=== PATIENT | female | born 1995 | race Caucasian/White ===

== ENCOUNTER 2024-10-03 05:30 | Inpatient (IN) | payer MEDICAID, SELFPAY ==
--- NOTE | 2024-09-29 11:02 | ESHP_ITS ---
RE: JOHNNY CRUZ : 1995 DATE OF ADMISSION: 10/03/2024 HISTORY OF PRESENT ILLNESS: This is a 29-year-old 3, para 1-0-1-1, with a due date of 10/06/2024, with intrauterine at 39 weeks and 0 days, who presents to Labor and Delivery for delivery. The patient had a previous shoulder dystocia, and she elects to undergo delivery. She reports occasional contractions. She denies any leaking or bleeding. She reports normal movement. Her care was complicated by an ultrasound, which showed an umbilical vein varix measuring 1.2 cm discovered upon maternal- medicine ultrasound. Her serial ultrasounds have shown adequate interval growth as well as her twice- weekly antepartum testing in the form of NSTs have been reassuring. The patient has been taking iron during her for iron deficiency anemia. Her urine drug screen was positive for methamphetamine in 06/2024 at her first visit, but her subsequent urine drug screens throughout the have been negative. ALLERGIES: NO KNOWN DRUG ALLERGIES. MEDICATIONS: 1. multivitamin one p.o. daily. 2. Ferrous sulfate 325 mg one p.o. twice a day. SOCIAL HISTORY: Denies any recent alcohol or drug use or smoking. However, methamphetamine was found in her urine on her first visit, but not on the subsequent visit. FAMILY HISTORY: Denies. OBSTETRIC HISTORY: 40 weeks, normal vaginal delivery of an 8-pound, 9-ounce female complicated by shoulder dystocia, spontaneous at 9 weeks' gestation in 08/2023. REVIEW OF SYSTEMS: She denies any chest pain, palpitations, cough, fever, shortness of breath, or lower extremity pain. PHYSICAL EXAMINATION: VITAL SIGNS: Blood pressure 119/73, heart rate 88, respirations 18, temperature 98.2, weight 190 pounds. HEENT: Oropharynx and sclerae are clear. LUNGS: Clear to auscultation bilaterally. HEART: Regular rate and rhythm. ABDOMEN: Gravid term size . PELVIC: Exam deferred. EXTREMITIES: Nontender. SKIN: No gross rashes or lesions. NEUROLOGIC: No focal deficit. ASSESSMENT: Intrauterine at 39 weeks, previous shoulder dystocia, elective delivery. PLAN: delivery. Informed consent was obtained. The patient has been aware of the risks, complications, alternatives, and benefits of the proposed procedure and she agrees. DT: 08:51:19 TT: 10:30:00 Ref: [id number] - TID: [id number] MTDD
[2024-10-02 10:00] LABS: Basophils % (Auto) 0 % (0-2.5); Eosinophils # (Auto) 0.2 Thou/mm3 (0.0-0.5); Eosinophils % (Auto) 1 % (0-10); Hematocrit 35.4 % (36.0-46.0); Hemoglobin 11.8 g/dL (12.0-16.0); Immature Granulocytes % (Auto) 1 % (0-0); Immature Granulocytes Auto 0.14 Thou/mm3 (0.00-0.00); Lymphocytes # (Auto) 1.5 Thou/mm3 (1.0-4.8); Lymphocytes % (Auto) 11 % (10-50); Mean Corpuscular HGB Conc 33.3 g/dl (31.0-37.0); Mean Corpuscular Hemoglobin 29.7 pg (25.0-35.0); Mean Corpuscular Volume 89 fL (80-100); Monocytes # (Auto) 0.8 Thou/mm3 (0.0-0.8); Monocytes % (Auto) 6 % (0-12); Neutrophils # (Auto) 11.2 Thou/mm3 (1.8-7.7); Neutrophils % (Auto) 81 % (37-80); Nucleated Red Blood Cell % 0 /100 WBC (0); Platelet Count 315 Thou/mm3 (140-440); RDW Standard Deviation 45.9 fL (36.4-46.3); Red Blood Count 3.97 Miln/mm3 (4.00-5.20); White Blood Count 13.9 Thou/mm3 (3.6-11.0)
[2024-10-02 10:19] LABS: Alanine Aminotransferase 14 U/L (10-49); Albumin, Serum 3.9 gm/dL (3.5-5.0); Albumin/Globulin Ratio 1.7 (1.2-2.2); Anion Gap 11 (7-16); Aspartate Amino Transferase < 8 U/L (0-34); BUN/Creatinine Ratio 10 Ratio (12-20); Bilirubin,Total 0.4 mg/dL (0.3-1.2); Blood Urea Nitrogen 6 mg/dL (9-23); Calcium 8.9 mg/dL (8.3-10.6); Carbon Dioxide 23.5 mMol/L (20.0-31.0); Chloride 104 mMol/L (98-107); Creatinine (Component) 0.6 mg/dL (0.6-1.3); Globulin 2.3 gm/dL (2.3-3.5); Glucose 102 mg/dL (74-106); Osmolality,Calculated 273 (275-295); Potassium 4.3 mMol/L (3.4-5.1); Sodium 138 mMol/L (136-145); Total Protein 6.2 gm/dL (5.7-8.2); eGFR > 60 See Note
[2024-10-02 10:30] LABS: Syphilis Nonreactive (Nonreactive)
[2024-10-02 10:36] LABS: INR 0.9 (0.9-1.3); Partial Thromboplastin Time 26.4 Seconds (22.0-36.0)
[2024-10-02 10:38] LABS: Alkaline Phosphatase 117 U/L (46-116)
[2024-10-03] VITALS (30 sets, daily range): BP systolic 106–139; BP diastolic 60–89; PULSE 81–115; RESP 13–23; TEMP 36.6–37; O2SAT 93–100; BMI 30.4
[2024-10-03 06:47] LABS: Basophils % (Auto) 0 % (0-2.5); Eosinophils # (Auto) 0.2 Thou/mm3 (0.0-0.5); Eosinophils % (Auto) 2 % (0-10); Hematocrit 36.1 % (36.0-46.0); Hemoglobin 12.3 g/dL (12.0-16.0); Immature Granulocytes % (Auto) 1 % (0-0); Immature Granulocytes Auto 0.09 Thou/mm3 (0.00-0.00); Lymphocytes # (Auto) 2.2 Thou/mm3 (1.0-4.8); Lymphocytes % (Auto) 18 % (10-50); Mean Corpuscular HGB Conc 34.1 g/dl (31.0-37.0); Mean Corpuscular Hemoglobin 29.8 pg (25.0-35.0); Mean Corpuscular Volume 87 fL (80-100); Monocytes # (Auto) 0.9 Thou/mm3 (0.0-0.8); Monocytes % (Auto) 7 % (0-12); Neutrophils % (Auto) 73 % (37-80); Nucleated Red Blood Cell % 0 /100 WBC (0); Platelet Count 354 Thou/mm3 (140-440); RDW Standard Deviation 45.6 fL (36.4-46.3); Red Blood Count 4.13 Miln/mm3 (4.00-5.20); White Blood Count 12.3 Thou/mm3 (3.6-11.0)
[2024-10-03] MEDS: CITRIC ACID/SODIUM CITR 15 ML UDC (BICITRA) 30 ML PO (07:14)
[2024-10-03] MEDS: ceFAZolin/D5W 2 GM IV 2 GM/100 ML BAG IV (07:15)
[2024-10-03] MEDS: FAMOTIDINE INJ 10 MG/ML VIAL 2 ML 20 MG IV (07:15)
[2024-10-03 07:21] LABS: Syphilis Nonreactive (Nonreactive)
--- NOTE | 2024-10-03 08:22 | PD.LDDELS ---
Data (Red) Data Hx Section: No : 3 Para: 1 Term: 1 : 0 : 1 Delivery Data (Red) Labor Data ROM Date: 10/03/24 ROM Time: 07:58 Rupture Type: AROM Amniotic Fluid: Clear Delivery Data EDC: 10/07/24 EDC calculated by:: LMP/early US confirmation Labor Onset Stage 1 Date: 10/03/24 Labor Onset Stage 1 Time: 07:59 Labor Onset Stage 2 Date: 10/03/24 Labor Onset Stage 2 Time: 07:59 Delivery Date: 10/03/24 Delivery Time: 07:59 Gestational age (weeks): 39 Gestational age (days): 3 Placenta Delivery Date: 10/03/24 Placenta Delivery Time: 08:00 Delivered by: Ivan Manjarrez Delivery nurse: Landy Delacruz Other staff at delivery: Nurse Other staff at delivery: Nursery Nurse Other staff at delivery: Nessa Mosley Other staff at delivery: Rayna Patino Delivery Method Delivery: Delivery Type: Primary Presentation: Vertex Position: OP Anesthesia Type Primary Anesthesia: Spinal Placenta Placenta Delivery: Manual Placenta Cultures Obtained: No Placenta Sent for Examination: No Cord Sample: Cord Blood Obtained EBL Estimated blood loss (ml): 600 Umbilical Cord Placenta/Cord Complication: Other Nuchal Cord: x1 Tightly Additional Procedures umbilical cord varix 1.3 cm. Complications Complications: uterine atony Data (Red) Data Gender: Female Weight Grams: 3405 1 Minute Total: 9 5 Minute Total: 9
[2024-10-03] MEDS: SODIUM CHLORIDE 0.9% 1000 ML 1,000 ML 125 ML IV (09:25)
[2024-10-03] MEDS: KETOROLAC INJ 30 MG/ML VIAL IVP ×2 (09:25→19:18)
[2024-10-03 09:30] LABS: Amphetamine/Metham Scrn,Ur OB Negative (Negative); Benzoylecgonine Screen, Ur OB Negative (Negative); Opiate Screen,Urine OB Negative (Negative); THC Screen,Urine OB Negative (Negative)
--- NOTE | 2024-10-03 12:06 | ESOP_ITS ---
RE: JOHNNY CRUZ : 1995 DATE OF OPERATION: 10/03/2024 PREOPERATIVE DIAGNOSES: Intrauterine at 39 weeks, previous shoulder dystocia, elects delivery. POSTOPERATIVE DIAGNOSES: Intrauterine at 39 weeks, previous shoulder dystocia, elects delivery. PROCEDURE PERFORMED: Primary low transverse section via Pfannenstiel skin incision. SURGEON: Ivan Manjarrez DO ACCOUNTS OFFICER: TOOTIE Evans. ANESTHESIA: Spinal ANESTHESIOLOGIST: Orlin Sun CRNA. ESTIMATED BLOOD LOSS: 600 mL. COMPLICATIONS: Uterine atony. FINDINGS: A live female , cephalic presentation, clear amniotic fluid, Apgars 9 and 9, weight 3405 grams, nuchal cord. Uterus, ovaries, and fallopian tubes grossly within normal limits. Placenta removed complete and intact. DESCRIPTION OF PROCEDURE: After proper informed consent was obtained and the patient was made aware of the risks, complications, alternatives, and benefits of the proposed procedure, she was taken to the operating room where she underwent induction of spinal anesthesia. She was placed in the dorsal supine position with leftward tilt. She was prepped and draped in the usual sterile fashion. A timeout was performed. A Pfannenstiel skin incision was made with the scalpel, carried through to the underlying layer of fascia with the Bovie. The fascia was nicked in the midline. Incision extended bilaterally with the Bovie. The inferior aspect of the fascial incision was grasped with Govind clamps and elevated. The underlying rectus muscles were dissected off with the Bovie. The rectus muscles were in the midline. The peritoneum was identified between two Higginbotham clamps and entered sharply with the Metzenbaum scissors. The incision was extended superiorly and inferiorly with good visualization of the bladder. Bladder blade was then inserted. The vesicouterine peritoneum was incised transversely and bladder flap created digitally. Bladder blades were reinserted. The lower uterine segment was incised in the transverse fashion with a scalpel. The incision was extended bilaterally digitally. The 's head delivered. Mouth and nose suctioned with bulb suction. Nuchal cord reduced. Shoulder and body delivered atraumatically. The cord was clamped and cut. The infant handed off to the waiting pediatric staff. Cord blood and gases were sent. The placenta was then removed manually. The uterus was exteriorized and cleared of all clots and debris. The uterine incision was closed with #1-0 chromic catgut suture in a running locking fashion. A second layer of the same suture was used to imbricate the first layer and obtained excellent hemostasis. The uterus was atonic, but responded to Methergine and TXA. The vesicouterine peritoneum was closed with 2-0 chromic catgut suture in a running fashion. The uterus was firm and the uterus was returned to the abdomen. The gutters were cleared of all clots and debris. The peritoneum was closed with 0 chromic catgut suture in a running fashion. The muscle was closed with 0 chromic catgut suture in a running fashion. The fascia was closed with 0 Vicryl beginning at each angle and ending in the center in running fashion. The subcutaneous tissue was irrigated with normal saline solution, found to be hemostatic, closed with 2-0 chromic catgut suture in a running fashion. The skin was closed with 4-0 Monocryl. A Dermabond Prineo dressing was applied. A sterile pressure dressing was applied. She tolerated the procedure well. Counts were correct. I discussed with the patient the nature of her condition, the intraoperative findings, expectations for recovery. All questions answered. DT: 08:24:33 TT: 11:21:00 Ref: [id number] - TID: [id number]
[2024-10-03 13:18] LABS: Basophils # (Auto) 0.1 Thou/mm3 (0.0-0.2); Basophils % (Auto) 0 % (0-2.5); Eosinophils # (Auto) 0.1 Thou/mm3 (0.0-0.5); Eosinophils % (Auto) 0 % (0-10); Hematocrit 39.2 % (36.0-46.0); Hemoglobin 13.4 g/dL (12.0-16.0); Immature Granulocytes % (Auto) 1 % (0-0); Immature Granulocytes Auto 0.19 Thou/mm3 (0.00-0.00); Lymphocytes % (Auto) 4 % (10-50); Mean Corpuscular HGB Conc 34.2 g/dl (31.0-37.0); Mean Corpuscular Volume 88 fL (80-100); Monocytes # (Auto) 0.3 Thou/mm3 (0.0-0.8); Monocytes % (Auto) 1 % (0-12); Neutrophils % (Auto) 94 % (37-80); Nucleated Red Blood Cell % 0 /100 WBC (0); Platelet Count 317 Thou/mm3 (140-440); RDW Standard Deviation 44.3 fL (36.4-46.3); Red Blood Count 4.47 Miln/mm3 (4.00-5.20); White Blood Count 28.6 Thou/mm3 (3.6-11.0)
[2024-10-03] MEDS: ACETAMINOPHEN IVPB 1,000 MG/100 ML VIAL 250 MG IV (14:17)
[2024-10-03] MEDS: OXYTOCIN in NS 20 units 20 UNIT/1,000 ML BAG 125 UNIT IV (17:36)
[2024-10-04] MEDS: KETOROLAC INJ 30 MG/ML VIAL IVP (03:43)
[2024-10-04 03:50] VITALS: BP 116/76; PULSE 81; RESP 16; TEMP 36.8; O2SAT 95
[2024-10-04 05:21] LABS: Basophils # (Auto) 0.1 Thou/mm3 (0.0-0.2); Basophils % (Auto) 0 % (0-2.5); Eosinophils # (Auto) 0.1 Thou/mm3 (0.0-0.5); Eosinophils % (Auto) 1 % (0-10); Hematocrit 35.2 % (36.0-46.0); Hemoglobin 11.8 g/dL (12.0-16.0); Immature Granulocytes % (Auto) 1 % (0-0); Immature Granulocytes Auto 0.18 Thou/mm3 (0.00-0.00); Lymphocytes # (Auto) 2.5 Thou/mm3 (1.0-4.8); Lymphocytes % (Auto) 14 % (10-50); Mean Corpuscular HGB Conc 33.5 g/dl (31.0-37.0); Mean Corpuscular Hemoglobin 29.6 pg (25.0-35.0); Mean Corpuscular Volume 88 fL (80-100); Monocytes # (Auto) 1.5 Thou/mm3 (0.0-0.8); Monocytes % (Auto) 8 % (0-12); Neutrophils # (Auto) 13.9 Thou/mm3 (1.8-7.7); Neutrophils % (Auto) 76 % (37-80); Nucleated Red Blood Cell % 0 /100 WBC (0); Platelet Count 375 Thou/mm3 (140-440); RDW Standard Deviation 45.7 fL (36.4-46.3); Red Blood Count 3.99 Miln/mm3 (4.00-5.20); White Blood Count 18.2 Thou/mm3 (3.6-11.0)
[2024-10-04 08:00] VITALS: BP 107/75; PULSE 96; RESP 17; TEMP 37
[2024-10-04] MEDS: IBUPROFEN TAB 400 MG TABLET 800 MG PO (09:43)
[2024-10-04 12:15] VITALS: BP 123/68; PULSE 99; RESP 16; TEMP 36.9
[2024-10-04] MEDS: HYDROcodone/APAP 5/325 TABLET 1 TAB PO ×2 (12:16→21:45)
--- NOTE | 2024-10-04 13:44 | PC.SS ---
SS conducted bedside contact with the patient to address nursing referral indicating patient was positive for meth during care. Current tox was negative. tox report was negative.? SS discussed self and role. SS asked patient for permission to speak in front of her guest. Patient asked her crew foreman to leave room. SS discussed with patient the basis of the referral. Patient confirmed she used Adderall during care. Patient resides at home with her 4 year old daughter, Mynor.? This is patient?s 2nd child. Patient had baby girl, Ashley, born 10[birth year]03[birth year]24, via . Patient plans on breast feeding. Patient received OB care by Dr. Manjarrez. Patient states she was consistent with care. Patient denies any history of alcohol. Patient denies any history of CWS or any domestic violence.? Father of the baby is Charles Crowell.? FOB is involved but does not reside with patient. Patient possesses support system from FOB and his family as well as patient?s cousin. Patient has access to a car seat, baby clothing and supplies. FOB will provide transportation upon discharge. Patient is aligned with [facility]. Patient does not possess FS or TANF. client services analyst provided resources to include:? [employer], Warm Line and community numbers.? No further intervention needed at this time.? Concrete Inspector will be available to address any further concerns. ?SS updated bedside nurse.
[2024-10-04] MEDS: HYDROcodone/APAP 5/325 TABLET 2 TAB PO (17:40)
--- NOTE | 2024-10-04 19:16 | ESPR_ITS ---
RE: JOHNNY CRUZ : 1995 DATE OF SERVICE: 10/04/2024 SUBJECTIVE : Postop day #1. The patient denies any problem or complaints. She is voiding. She is ambulating. She is tolerating regular diet. She is passing flatus. She denies any excessive vaginal bleeding. She denies any dizziness or lightheadedness. She denies any chest pain, palpitations, shortness of breath or lower extremity pain. She denies any depression or anxiety. OBJECTIVE: Vital Signs: Blood pressure 123/68, heart rate 99, respirations 16, temperature is 98.5. Lungs: Clear to auscultation bilaterally. Heart: Regular rate and rhythm. Abdomen: Incision clean and intact. Fundus is firm. LABORATORY DATA: Hemoglobin predelivery is 12.3. Post delivery is 11.8. ASSESSMENT: 1. Postop day #1, status post delivery. 2. Leukocytosis to 28,0000, likely reactionary due to surgery. No evidence of infection. PLAN: Encouraged ambulation, support, possible discharge home tomorrow. Discharge instructions given. DT: 17:07:28 TT: 18:33:00 Ref: [id number] - TID: [id number]
--- NOTE | 2024-10-04 20:36 | PD.LDDS ---
DS: Providers Provider Date of admission: 10/03/24 05:30 Primary care physician: Trino Chen MD Admitting Provider: Ivan Manjarrez MD Attending Provider on Admission: Ivan Manjarrez MD Consults: 10/03/24 08:49 Referral Routine Comment: Attending Provider on DC: Ivan Manjarrez MD Discharging Provider: Ivan Manjarrez MD DS: Diagnosis Problem List Completed Was Problem List Reviewed/Reconciled?: Yes Summary/Hosp Course Peripartum Data Procedures: Procedures Operation Date: 10/03/24 07:45 Actual Procedure Side Surgeon p in OB Ivan Manjarrez MD Time Spent with Patient Time attestation: Total time spent providing and/or coordinating discharge services: Exam Vital Signs Temp Pulse Resp BP Pulse Ox O2 Del Method 98.5 F 99 16 123/68 95 Room Air 10/04/24 12:15 10/04/24 12:15 10/04/24 12:15 10/04/24 12:15 10/04/24 03:50 10/04/24 12:15 Discharge Plan Plan Patient Disposition: HOME (Self Care) Patient condition on transfer: Stable Prescriptions/Referrals Prescriptions/Med Rec: New ibuprofen 600 mg tablet 600 mg PO Q6H PRN (Reason: pain) Qty: 30 0RF Continued hydrocodone-acetaminophen [[place]] 5-325 mg tablet 1 tab PO Q6H MDD 6 PRN (Reason: pain) Qty: 30 0RF PNV cmb#[id number]-ferrous fumarate-FA [] 28 mg iron- 800 mcg tablet 1 tab PO DAILY Patient Comments: TAKE 1 TABLET BY MOUTH EVERY DAY ferrous sulfate 325 mg (65 mg iron) tablet 325 mg PO DAILY Patient Comments: TAKE 1 TABLET BY MOUTH TWICE A DAY Discontinued 400 mcg Tablet,Chewable 400 mcg PO DAILY Referrals: Trino Chen MD [Primary Care Provider] - Patient/Caregiver Discharge Instructions Discharge Activity: activity as tolerated Other Discharge Activity Instructions:: Follow up office 1 week. Education Materials: Understanding Blues, Nutrition While , C Section Dc Print Language: Gabonese Stand Alone Forms: Haylie Award Info., Patient Portal Info Letter Discharge Order Discharge Orders: Discharge (Routine); Ordered 10/05/24 Ordered By: Ivan Manjarrez Planned Discharge Date 10/05/24
[2024-10-04 20:59] VITALS: BP 141/79; PULSE 80; RESP 19; TEMP 37.1
[2024-10-05 00:25] VITALS: BP 126/78; PULSE 101; RESP 17; TEMP 37.1
[2024-10-05 04:33] VITALS: BP 131/84; PULSE 89; RESP 17; TEMP 37.2
[2024-10-05] MEDS: HYDROcodone/APAP 5/325 TABLET 1 TAB PO (04:46)
[2024-10-05 07:45] VITALS: BP 128/83; PULSE 92; RESP 16; TEMP 37; O2SAT 96
[2024-10-05] MEDS: IBUPROFEN TAB 400 MG TABLET 800 MG PO (07:48)
--- NOTE | 2024-10-05 09:18 | ESPR_ITS ---
RE: JOHNNY CRUZ : 1995 DATE OF SERVICE: 10/05/2024 S: Postop day #2, the patient denies any problem or complaints. O: Vital Signs: Blood pressure 131/84, heart rate 89, respirations 17, temperature 98.9, and pulse ox is 100% on room air. Lungs: Clear to auscultation bilaterally. Heart: Regular rate and rhythm. Abdomen: Incision clear and intact. Fundus is firm. Extremities: Nontender. A: Postop day #2, status post delivery. P: Discharge home. Discharge instructions given. Followup in the office in 1 week. DT: 07:38:00 TT: 09:17:00 Ref: [id number] - TID: [id number]
== END 2024-10-05 10:00 | disposition home or self-care (01) | DRG 540 ==
LOC: S4SX 06:11 → S4NX 07:44
PROVIDERS: Admitting Provider Specialist; PCP Family Medicine; Visit Provider Specialist
PROC: 10D00Z1 Extraction of Products of Conception, Low, Open Approach (ICD-10-PCS; CPT 59514; principal; 2024-10-03 07:30)
DX: O69.5XX0 Labor and delivery complicated by vascular lesion of cord, not applicable or unspecified (principal); D50.9 Iron deficiency anemia, unspecified; O99.02 Anemia complicating childbirth; Z37.0 Single live birth; Z3A.39 39 weeks gestation of pregnancy; O99.12 Other diseases of the blood and blood-forming organs and certain disorders involving the immune mechanism complicating childbirth; O69.1XX0 Labor and delivery complicated by cord around neck, with compression, not applicable or unspecified; O62.2 Other uterine inertia; D72.829 Elevated white blood cell count, unspecified
CPT/HCPCS: 36415; 80053; 80307; 85025; 85610; 85730; 86780; 86850; 86900; 86901; A4649; J0131; J0689; J1100; J1885; J2210; J2250; J2274; J2371; J2405; J2590; J3010; J3490; J7030; A9270; J2270

== ENCOUNTER 2025-03-27 11:21 | Inpatient (IN) | payer MEDICAID, SELFPAY ==
[2025-03-27] VITALS (8 sets, daily range): BP systolic 124–142; BP diastolic 69–101; PULSE 110–155; RESP 13–100; TEMP 36.1–36.8; O2SAT 94–100; BMI 28.7
--- NOTE | 2025-03-27 11:30 | EDNOTE_ITS ---
ED Alcohol RME/HPI General Chief Complaint: Anxiety Stated Complaint: ANXIETY , ETOH Time Seen by Provider: 03/27/25 11:24 Source: patient and EMS Arrival date/time: 03/27/25 11:21 Limitations: no limitations RME / HPI RME / HPI narrative: 29-year-old female is brought in by EMS for a long history of alcohol abuse. She states she drinks 3-4 times a week, when she does drink, she drinks a bottle of vodka. She states she last drank last night. She is concerned because she has bruising all over her body. She does not recall any injuries. She is feeling anxious. She does have a history of depression and takes sertraline for this. She states she often gets shakes and is diaphoretic. She denies any history of seizures. She has no recent falls or injuries. She has no other acute complaints or concerns. Related Data Home Medications ?Medication ?Instructions ?Recorded ?Confirmed sertraline 100 mg tablet 100 mg PO Q24H 03/27/2503/09 Allergies Allergy/AdvReac Type Severity Reaction Status Date / Time No Known Allergies Allergy Verified 03/27/25 11:46 Review of Systems Review of Systems Systems Reviewed: All systems reviewed, normal except as documented ED Exam General Limitations: Present no limitations General appearance: Present alert and in no apparent distress Head Head exam: Present atraumatic Eye Eye exam: Present normal appearance, PERRL and EOMI ENT ENT exam: Present normal exam, normal oropharynx and mucous membranes moist Neck Neck exam: Present normal inspection, full ROM and trachea midline Chest Chest inspection: Present normal inspection and symmetric chest wall rise Respiratory Respiratory exam: Present normal lung sounds bilaterally Cardiovascular Cardiovascular exam: Present normal rhythm and tachycardia Abdominal Exam Abdominal exam: Present soft; Absent guarding Extremities Exam Extremities exam: Present normal inspection and full ROM Back Exam Back exam: Present normal inspection and full ROM Neurological Exam Neurological exam: Present alert, oriented X3 and other (Patient does have a resting tremor) Psychiatric Psychiatric exam: Present anxious Skin Skin exam: Present intact and other (There is very mild diaphoresis) Course Course Course Narrative: Patient was initially seen by me in the ambulance bay. She is answering questions appropriately but responses are very delayed. She is diaphoretic and tachycardic. I did request a room for the patient with immediate interventions. Patient was later placed in the lobby, her lactic acid came back and was 7.6. Charge nurse was informed. Room and interventions were again requested. Quality Measures none Orders Category Date Time Status Admit to Inpatient Status Routine Admission 03/27/25 14:57 Active Patient Condition Routine Admission 03/27/25 14:57 Ordered COVID-19 Screening Questionnaire NOW Care 03/27/25 13:32 Active Consult Alarm Signaler NOW Care 03/27/25 13:35 Completed Decision to Admit X1 Care 03/27/25 13:32 Completed Flu & Pneumonia Vaccine Screen ONCE Care 03/27/25 14:57 Active Insert IV NOW Care 03/27/25 14:02 Active Miscellaneous Nursing Order NOW Care 03/27/25 15:02 Active Notify provider NEEDED Care 03/27/25 14:57 Active Seizure precautions NEEDED Care 03/27/25 14:59 Active Sequential Compression Device QSHIFT Care 03/27/25 14:57 Active Vital Signs, Non-Routine Q4H Care 03/27/25 15:00 Ordered Vital Signs, Non-Routine Q4H Care 03/27/25 19:00 Ordered Vital Signs, Non-Routine Q4H Care 03/27/25 23:00 Ordered Diet Regular Diet 03/27/25 Dinner Active Alcohol, Blood Medical Stat Lab 03/27/25 11:57 Completed Alcohol, Blood Medical Stat Lab 03/27/25 15:21 Completed CBC AM DRAW Lab 03/28/25 05:00 Ordered CBC AM DRAW Lab 03/29/25 05:00 Ordered CBC AM DRAW Lab 03/30/25 05:00 Ordered CBC AM DRAW Lab 03/31/25 05:00 Ordered CBC AM DRAW Lab 04/01/25 05:00 Ordered CBC AM DRAW Lab 04/02/25 05:00 Ordered CBC AM DRAW Lab 04/03/25 05:00 Ordered CBC AM DRAW Lab 04/04/25 05:00 Ordered CBC AM DRAW Lab 04/05/25 05:00 Ordered CBC AM DRAW Lab 04/06/25 05:00 Ordered CBC Stat Lab 03/27/25 11:57 Completed CMP [Comprehensive Metabolic Panel] Stat Lab 03/27/25 11:57 Completed Comprehensive Metabolic Panel AM DRAW Lab 03/28/25 05:00 Ordered Comprehensive Metabolic Panel AM DRAW Lab 03/29/25 05:00 Ordered Comprehensive Metabolic Panel AM DRAW Lab 03/30/25 05:00 Ordered Comprehensive Metabolic Panel AM DRAW Lab 03/31/25 05:00 Ordered Comprehensive Metabolic Panel AM DRAW Lab 04/01/25 05:00 Ordered Comprehensive Metabolic Panel AM DRAW Lab 04/02/25 05:00 Ordered Comprehensive Metabolic Panel AM DRAW Lab 04/03/25 05:00 Ordered Comprehensive Metabolic Panel AM DRAW Lab 04/04/25 05:00 Ordered Comprehensive Metabolic Panel AM DRAW Lab 04/05/25 05:00 Ordered Comprehensive Metabolic Panel AM DRAW Lab 04/06/25 05:00 Ordered Drug Screen,Urine Stat Lab 03/27/25 13:13 Completed HCG,Qualitative Serum Stat Lab 03/27/25 11:57 Completed Lactic Acid [Lactate (Lactic Acid)] Stat Lab 03/27/25 11:57 Completed Lactic Acid, 3 HR Stat Lab 03/27/25 15:21 Completed Lipase Stat Lab 03/27/25 11:57 Completed Lipid Panel AM DRAW Lab 03/28/25 05:00 Ordered Magnesium AM DRAW Lab 03/28/25 05:00 Ordered Magnesium AM DRAW Lab 03/29/25 05:00 Ordered Magnesium AM DRAW Lab 03/30/25 05:00 Ordered Magnesium AM DRAW Lab 03/31/25 05:00 Ordered Magnesium AM DRAW Lab 04/01/25 05:00 Ordered Magnesium AM DRAW Lab 04/02/25 05:00 Ordered Magnesium AM DRAW Lab 04/03/25 05:00 Ordered Magnesium AM DRAW Lab 04/04/25 05:00 Ordered Magnesium AM DRAW Lab 04/05/25 05:00 Ordered Magnesium AM DRAW Lab 04/06/25 05:00 Ordered Magnesium Stat Lab 03/27/25 11:57 Completed Phosphorous AM DRAW Lab 03/28/25 05:00 Ordered Phosphorous AM DRAW Lab 03/29/25 05:00 Ordered Phosphorous AM DRAW Lab 03/30/25 05:00 Ordered Phosphorous AM DRAW Lab 03/31/25 05:00 Ordered Phosphorous AM DRAW Lab 04/01/25 05:00 Ordered Phosphorous AM DRAW Lab 04/02/25 05:00 Ordered Phosphorous AM DRAW Lab 04/03/25 05:00 Ordered Phosphorous AM DRAW Lab 04/04/25 05:00 Ordered Phosphorous AM DRAW Lab 04/05/25 05:00 Ordered Phosphorous AM DRAW Lab 04/06/25 05:00 Ordered Troponin I Stat Lab 03/27/25 11:57 Completed UA, C/S IF [Urinalysis, C/S if Indicated] Stat Lab 03/27/25 13:11 Completed Urine Culture Stat Lab 03/27/25 13:11 Received Diazepam Inj [Valium Inj] Med 03/27/25 11:29 Discontinued 5 mg IVP X1 ONE Diazepam Inj [Valium Inj] Med 03/27/25 13:49 Discontinued 5 mg IVP X1 ONE Ibuprofen Tab [Motrin Tab] Med 03/27/25 14:57 Discontinued 400 mg PO Q6HR PRN Ibuprofen Tab [Motrin Tab] Med 03/27/25 14:57 Discontinued 600 mg PO Q6H PRN Metoclopramide Inj [Reglan Inj] Med 03/27/25 15:08 Active 10 mg IVP Q6HR PRN Ondansetron Inj [Zofran Inj] Med 03/27/25 14:57 Discontinued 4 mg IVP Q6H PRN Pantoprazole [Protonix] Med 03/28/25 09:00 Discontinued 40 mg PO QDAY Ringers Lactated 1000 ml [Lactated Ringers] 1,000 ml Med 03/27/25 13:30 Discontinued IV 999 mls/hr Ringers Lactated 1000 ml [Lactated Ringers] 1,000 ml Med 03/27/25 13:32 Discontinued IV 999 mls/hr Sodium Chloride 0.9% 1000 ml [Ns] 1,000 ml Med 03/27/25 15:00 Active IV 75 mls/hr Sodium Chloride 0.9% 1000 ml [Ns] 1,000 ml Med 03/27/25 11:40 Discontinued IV 999 mls/hr Code Status Routine Oth 03/27/25 14:57 Ordered Oxygen Delivery DAILY RT 03/27/25 15:00 Active Vital Signs Vital signs: Vital Signs Temperature 98.3 F 03/27/25 11:37 Pulse Rate 114 H 03/27/25 11:37 Respiratory Rate 18 03/27/25 11:37 Blood Pressure 138/85 H 03/27/25 11:37 Pulse Oximetry (%) 100 03/27/25 11:37 Oxygen Delivery Method Room Air 03/27/25 11:37 Discharge Plan Plan Patient Disposition: Admit Acute Care w/in Hospital Problem List Clinical Impression: Alcohol withdrawal Alcohol MDM Narrative MDM Narrative: 29-year-old female is brought in by EMS for a long history of alcohol abuse. She states she drinks 3-4 times a week, when she does drink, she drinks a bottle of vodka. She states she last drank last night. She is concerned because she has bruising all over her body. She does not recall any injuries. She is feeling anxious. She does have a history of depression and takes sertraline for this. She states she often gets shakes and is diaphoretic. She denies any history of seizures. She has no recent falls or injuries. She has no other acute complaints or concerns. Patient is ill-appearing but nontoxic-appearing. She is diaphoretic, tachycardic, mildly confused. Workup in room was requested. I believe that her CIWA score is 11, I have requested nursing staff perform an independent CIWA score. Reviewed patient's labs, she has a lactic acid dosis at 7.6. Patient was placed in the lobby and her room has again been requested for cardiac monitoring and interventions. at 13:34 Case discussed with her hospitalist who will evaluate the patient for admission. At 1350 p.m., patient was brought back to exam room. She is reassessed. Her tremors have worsened. Additional doses of Valium have been requested. Patient data External records reviewed:: EMS form Clinical information provided by:: patient and EMS Social determinants that could affect healthcare access:: alcohol use Patient has the following chronic illnesses:: Alcohol abuse How is presenting disease/condition affected by chronic disease/condition?: exacerbated by Evaluation data The following diagnostics were reviewed and interpreted by me:: EKG tracing(s) (EKG reveals sinus tachycardia [address] change.) Lab and/or radiology exams considered but not ordered:: n/a Interpretation Summary: Alcohol abuse, lactic acidosis, alcohol withdrawal Medications / Prescriptions Medications or Prescriptions considered but not ordered:: n/a Medication administrations:: Medication Administration History Acetaminophen (Acetaminophen 325 Mg Tablet) 650 mg PO Q4HR PRN PRN Reason: Fever >101, pain 1-3 Stop: 04/26/25 16:14 Chlordiazepoxide HCl (Chlordiazepoxide Hcl 25 Mg Capsule) 50 mg PO Q8HR YNOG Stop: 03/28/25 15:44 Last Admin: 03/27/25 16:17 Dose: 50 mg Documented By: DAA Diazepam (Diazepam Inj 5 Mg/Ml Vial 2 Ml) 2.5 mg IVP Q2HR PRN PRN Reason: CIWA SCORE 8-13 Stop: 04/01/25 15:31 Last Admin: 03/27/25 17:43 Dose: 2.5 mg Documented By: ALEXIS(2) Diazepam (Diazepam Inj 5 Mg/Ml Vial 2 Ml) 5 mg IVP Q2HR PRN PRN Reason: CIWA SCORE 14-19 Stop: 04/01/25 15:32 Diazepam (Diazepam Inj 5 Mg/Ml Vial 2 Ml) 10 mg IVP Q2HR PRN PRN Reason: CIWA SCORE 20-25 Stop: 04/01/25 15:32 Folic Acid (Folic Acid Inj 1 Mg/0.2 Ml) 1 mg IVP BID [facility] Stop: 04/26/25 20:59 Sodium Chloride (Ns) 1,000 mls @ 75 mls/hr IV .[id number] [facility] Stop: 04/26/25 14:59 Last Admin: 03/27/25 16:25 Dose: 75 mls/hr Documented By: ALEXIS Lorazepam (Lorazepam 0.5 Mg Tablet) 0.5 mg PO Q4HR PRN PRN Reason: CIWA Score 2-7 Stop: 04/01/25 15:31 Metoclopramide HCl (Metoclopramide Inj 5 Mg/Ml Vial 2 Ml) 10 mg IVP Q6HR PRN; Protocol PRN Reason: NAUSEA OR VOMITING Stop: 04/26/25 15:07 Last Admin: 03/27/25 16:25 Dose: 10 mg Documented By: ALEXIS Multivitamins (Multivitamins Tablet) 1 tab PO QDAY [facility] Stop: 04/26/25 15:44 Last Admin: 03/27/25 16:17 Dose: 1 tab Documented By: ALEXIS Pantoprazole Sodium (Pantoprazole Inj 40 Mg Vial) 40 mg IVP QDAY YONG Stop: 04/27/25 08:59 Sertraline HCl (Sertraline Hcl 25 Mg Tablet) 100 mg PO Q24H YONG Stop: 04/27/25 16:44 Thiamine HCl (Thiamine Inj 100 Mg/Ml Vial 2 Ml) 100 mg IVP BID YONG Stop: 04/26/25 20:59 Discontinued Medications Diazepam (Diazepam Inj 5 Mg/Ml Vial 2 Ml) 5 mg IVP X1 ONE Stop: 03/27/25 11:30 Last Admin: 03/27/25 15:33 Dose: 5 mg Documented By: HOLDEN Diazepam (Diazepam Inj 5 Mg/Ml Vial 2 Ml) 5 mg IVP X1 ONE Stop: 03/27/25 13:50 Last Admin: 03/27/25 14:18 Dose: 5 mg Documented By: HOLDEN Diazepam (Diazepam Inj 5 Mg/Ml Vial 2 Ml) 5 mg IVP Q4HR PRN PRN Reason: CI 14-19 Stop: 04/01/25 15:20 Diazepam (Diazepam Inj 5 Mg/Ml Vial 2 Ml) 2.5 mg IVP Q4HR PRN PRN Reason: CI 8 Stop: 04/01/25 15:24 Diazepam (Diazepam Inj 5 Mg/Ml Vial 2 Ml) 10 mg IVP Q2HR PRN PRN Reason: Stop: 04/01/25 15:59 Diazepam (Diazepam Inj 5 Mg/Ml Vial 2 Ml) 2.5 mg IVP Q2HR YONG Stop: 04/01/25 15:59 Diazepam (Diazepam Inj 5 Mg/Ml Vial 2 Ml) 5 mg IVP Q2HR YONG Stop: 04/01/25 15:59 Diazepam (Diazepam Inj 5 Mg/Ml Vial 2 Ml) 10 mg IVP PRN PRN PRN Reason: Breakthrough agitation Stop: 04/01/25 15:26 Diltiazem HCl (Diltiazem 30 Mg Tablet) 30 mg PO X1 ONE Stop: 03/27/25 18:33 Last Admin: 03/27/25 18:44 Dose: Not Given Documented By: ALEXIS(2) Non-Admin Reason: HOLD PER DR. ALONSO Sodium Chloride (Ns) 1,000 mls @ 999 mls/hr IV .Q1H1M ONE Stop: 03/27/25 12:40 Last Admin: 03/27/25 13:55 Dose: Not Given Documented By: HOLDEN Non-Admin Reason: Cancelled by Provider Lactated Ringer's (Lactated Ringers) 1,000 mls @ 999 mls/hr IV .Q1H1M ONE Stop: 03/27/25 14:30 Last Infusion: 03/27/25 15:40 Dose: Infused Documented By: Admin: 03/27/25 14:20 Dose: 999 mls/hr Documented By: HOLDEN Lactated Ringer's (Lactated Ringers) 1,000 mls @ 999 mls/hr IV .Q1H1M ONE Stop: 03/27/25 14:32 Last Infusion: 03/27/25 15:40 Dose: Infused Documented By: Admin: 03/27/25 14:20 Dose: 999 mls/hr Documented By: HOLDEN Ibuprofen (Ibuprofen Tab 400 Mg Tablet) 400 mg PO Q6HR PRN PRN Reason: Fever > 101 Stop: 04/26/25 14:56 Ibuprofen (Ibuprofen Tab 600 Mg Tablet) 600 mg PO Q6H PRN PRN Reason: PAIN SCALE 1-3 (mild Stop: 04/26/25 14:56 Lorazepam (Lorazepam 0.5 Mg Tablet) 0.5 mg PO Q4HR PRN PRN Reason: CIWA Score 2-6 Stop: 04/01/25 15:21 Lorazepam (Lorazepam 0.5 Mg Tablet) 1 mg PO Q4HR PRN PRN Reason: CIWA SCORE 7-11 Stop: 04/01/25 15:21 Lorazepam (Lorazepam 0.5 Mg Tablet) 2 mg PO Q4HR PRN PRN Reason: CIWA SCORE 12-15 Stop: 04/01/25 15:21 Lorazepam (Lorazepam 0.5 Mg Tablet) 0.5 mg PO Q4HR PRN PRN Reason: CIWA Score 2-7 Stop: 04/01/25 15:21 Non-Formulary Medication (Sertraline) 100 mg PO Q24H YONG Stop: 04/26/25 16:44 Ondansetron HCl (Ondansetron Inj 2 Mg/Ml Inj 2 Ml) 4 mg IVP Q6H PRN; Protocol PRN Reason: NAUSEA OR VOMITING Stop: 04/26/25 14:56 Pantoprazole Sodium (Pantoprazole 40 Mg Tablet) 40 mg PO QDAY YONG Stop: 04/27/25 08:59 Pantoprazole Sodium (Pantoprazole Inj 40 Mg Vial) 40 mg IVP X1 ONE Stop: 03/27/25 15:10 Last Admin: 03/27/25 16:24 Dose: 40 mg Documented By: ALEXIS See above Consultations Consultation(s) initiated? (list below): No Diagnosis Most likely diagnosis given after review of the tests above:: Alcohol abuse, alcohol withdrawal Admission Indicated Admission indicated?: indicated Admission Request Was there a request for admission?: Yes Admission Attestation Admission request attestation: Discussed case with [] from Hospitalist service regarding admission. Discussed patients ED course, exam findings, labs, and radiology results. The Hospitalist [agrees,declines] to accept the patient for admission. Disposition Plan Disposition Plan: Admit
[2025-03-27 12:10] LABS: Basophils # (Auto) 0.1 Thou/mm3 (0.0-0.2); Basophils % (Auto) 1 % (0-2.5); Eosinophils # (Auto) 0.0 Thou/mm3 (0.0-0.5); Eosinophils % (Auto) 0 % (0-10); Hematocrit 44.4 % (36.0-46.0); Hemoglobin 14.7 g/dL (12.0-16.0); Immature Granulocytes Auto 0.06 Thou/mm3 (0.00-0.00); Lymphocytes # (Auto) 0.5 Thou/mm3 (1.0-4.8); Lymphocytes % (Auto) 4 % (10-50); Mean Corpuscular HGB Conc 33.1 g/dl (31.0-37.0); Mean Corpuscular Hemoglobin 32.2 pg (25.0-35.0); Mean Corpuscular Volume 97 fL (80-100); Monocytes # (Auto) 0.6 Thou/mm3 (0.0-0.8); Monocytes % (Auto) 5 % (0-12); Neutrophils # (Auto) 11.0 Thou/mm3 (1.8-7.7); Neutrophils % (Auto) 90 % (37-80); Nucleated Red Blood Cell # 0.00 Thou/mm3 (0.00-0.00); Nucleated Red Blood Cell % 0 /100 WBC (0); Platelet Count 184 Thou/mm3 (140-440); RDW Standard Deviation 44.1 fL (36.4-46.3); Red Blood Count 4.56 Miln/mm3 (4.00-5.20); White Blood Count 12.2 Thou/mm3 (3.6-11.0)
[2025-03-27 12:15] LABS: Lactate (Lactic Acid) 7.6 mMol/L (0.4-2.0)
[2025-03-27 12:22] LABS: HCG,Qualitative Serum Negative
[2025-03-27 12:34] LABS: Alanine Aminotransferase 77 U/L (10-49); Albumin, Serum 4.8 gm/dL (3.5-5.0); Albumin/Globulin Ratio 1.9 (1.2-2.2); Alcohol, Blood Medical < 3.0 mg/dL (0-10.0); Alkaline Phosphatase 91 U/L (46-116); Anion Gap 21 (7-16); Aspartate Amino Transferase 152 U/L (0-34); BUN/Creatinine Ratio 8 Ratio (12-20); Bilirubin,Total 1.4 mg/dL (0.3-1.2); Blood Urea Nitrogen 6 mg/dL (9-23); Calcium 10.4 mg/dL (8.3-10.6); Calcium (Corrected) 10.4 mg/dL (8.5-10.1); Carbon Dioxide 18.7 mMol/L (20.0-31.0); Chloride 95 mMol/L (98-107); Creatinine (Component) 0.8 mg/dL (0.6-1.3); Globulin 2.5 gm/dL (2.3-3.5); Glucose 180 mg/dL (74-106); Lipase 53 U/L (12-53); Magnesium 1.7 mg/dL (1.6-2.6); Osmolality,Calculated 272 (275-295); Potassium 4.8 mMol/L (3.4-5.1); Sodium 135 mMol/L (136-145); Total Protein 7.3 gm/dL (5.7-8.2); eGFR > 60 See Note
[2025-03-27 13:23] LABS: Collection Type, Urine Voided
[2025-03-27 13:46] LABS: Bilirubin,Urine Negative (Negative); Blood,Urine 3+ (Negative); Clarity,Urine Clear (Clear/Hazy); Color,Urine Lt-Yellow (Lt Yel-Yel); Glucose, Urine Negative (Negative); Hyaline Casts,Urine 1 /hpf (0-1); Ketones,Urine 3+ (Negative); Leukocyte Esterase,Urine Negative (Negative); Nitrite,Urine Positive (Negative); PH,Urine 6.0 (5.0-7.0); Protein,Urine 3+ (Neg - Trace); RBC,Urine 3 /hpf (0-3); Specific Gravity,Urine 1.020 (1.001-1.035); Squamous Epithelial Cell,Urine < 1 /hpf (0-5); Urobilinogen,Urine Negative mg/dL (0.0-1.0); WBC,Urine 5 /hpf (0-5)
[2025-03-27 13:47] LABS: Culture Indicated,Urine Yes
[2025-03-27 13:54] LABS: Amphetamine/Methamp Scrn,U Positive (Negative); Barbiturate Screen,Urine Negative (Negative); Benzodiazepines Screen,Urine Negative (Negative); Benzoylecgonine Screen, Ur Negative (Negative); Fentanyl Screen,Urine Negative (Negative); Opiate Screen,Urine Negative (Negative); THC Screen,Urine Negative (Negative)
[2025-03-27] MEDS: DIAZEPAM INJ 5 MG/ML VIAL 2 ML IVP ×2 (14:18→15:33)
[2025-03-27] MEDS: RINGERS LACTATED 1000 ML 1,000 ML 999 ML IV ×2 (14:20)
[2025-03-27 15:00] LABS: Reflex Lactate? Y
--- NOTE | 2025-03-27 15:05 | ESHP_ITS ---
<Statement entered by Janie Roca MD - 03/27/25 18:40> Ms. Dickens is a 29-year-old female with past medical history significant for depression was brought in by ambulance with symptoms of alcohol withdrawal and admitted for further management. On examination, patient presented with a CIWA of 17 due to patient's apparent tremors, nausea, tactile paresthesia, and diaphoresis. Patient's symptoms have improved after being given Valium 5 mg x 2. Patient will continue on CIWA protocol with diazepam, Librium 50 mg every 8 scheduled along with thiamine and folate supplementation. Will encourage p.o. intake when tolerated. Will monitor patient's blood ethanol level and have seizure precautions. Can consider phenobarbital if symptoms continue to worsen, and if that does happen, will will have to stop Librium due to strong adverse reaction when used together. Patient presented with a troponin of 0.049 as well, and will order repeat troponin at 20 1:00, and follow-up with repeat EKG. UA also positive for nitrites and protein, however negative for bacteria. Pending urine culture will continue to monitor for any worsening of symptoms. Will resume patient's home sertraline on home reconciliation is complete. I discussed with and supervised the video intern physician who took care of this patient. I personally saw and examined the patient and discussed the assessment and plan with the entire medicine team, including my attending Dr. Metz, I agree with most of the assessment and plan as documented below Janie Roca M.D. PGY-3 Disclaimer: Despite multiple revisions, due to the dictation software being used, the document bellow may not be free of grammatical errors including phonetic/typographic errors. However, this does not deter from our commitment to providing health care in the patient's best interest in mind. Documentation for date of: 03/27/25 HPI History of Present Illness Chief complaint: Alcohol withdrawal History of present illness: This is a 29 year-old female with past medical history of depression who was BIB EMS for alcohol withdrawal. Patient states that she has been drinking heavily since 5-6 month ago with frequency of almost daily. She typically drinks anywhere between quarter to half a bottle of Vodka. Last drink was this morning at 1000 when she drank half a bottle of Vodka. Patient reports persistent nausea, emesis, tremor, sweating, anxiety, restlessness and presthesia for the 1-2months. Patient denies any visual or auditory hallucinations. Patient also reports severe occipital headache and some vision changes that she has noticed recently. Patient reports shortness of breath, chest discomfort and resolved diarrhea. Patient denies any hematemesis, hematuria, dysuria or hematuria. ED course: received 2L of LR, 1L of NS, and 2x 5mg Diazepam Allergies: NKDA PMH: depression. Denies hx of seizure Meds: Sertraline PSH: x1 SH: Denies tobacco or drug use, +amphetamine pills Review of Systems Review of Systems Systems Reviewed: All systems reviewed, normal except as documented Exam Vital Signs Temp Pulse Resp BP Pulse Ox O2 Del Method 98.3 F 113 H 20 128/101 H 99 Room Air 03/27/25 11:37 03/27/25 14:11 03/27/25 14:11 03/27/25 14:11 03/27/25 14:11 03/27/25 14:11 Narrative Exam General: Anxious appearing, WDWN, diaphoretic, slow to response Head: NCAT Neck: trachea midline, no thyromegaly Resp: CTAB, no wheezing, in no respiratory distress CV: Tachycardia with regular rhythm, No gallops or murmurs appreciated. +2 radial pulses b/l Ext: no pretibial edema noted, no gross deformity Skin: scattered ecchymosis noted on bilateral upper and lower extremity Neuro: CN 2-12 grossly intact, finger to nose intact bilaterally however with tremor. Tremor at rest noted which exacerbates with arms extended. Psych: A/Ox4, anxious Results: Labs 03/28/25 01:55 03/28/25 01:55 Labs: Short CBC 03/27/25 Range/Units 11:57 WBC 12.2 H (3.6-11.0) Thou/mm3 Hgb 14.7 (12.0-16.0) g/dL Hct 44.4 (36.0-46.0) % Plt Count 184 (140-440) Thou/mm3 BMP 03/27/25 11:57 Sodium 135 L Potassium 4.8 Chloride 95 L Carbon Dioxide 18.7 L BUN 6 L Creatinine 0.8 Glucose 180 H Calcium 10.4 Liver Function 03/27/25 Range/Units 11:57 Total Bilirubin 1.4 H (0.3-1.2) mg/dL AST 152 H (0-34) U/L ALT 77 H (10-49) U/L Alkaline Phosphatase 91 (46-116) U/L Albumin 4.8 (3.5-5.0) gm/dL Urine 03/27/25 Range/Units 13:11 Urine Color Lt-Yellow (Lt Yel-Yel) Urine Clarity Clear (Clear/Hazy) Urine pH 6.0 (5.0-7.0) Ur Specific [place] 1.020 (1.001-1.035) Urine Protein 3+ A (Neg - Trace) Urine Glucose (UA) Negative (Negative) Quality Measures Quality Measures VTE prophylaxis Medications Home Medications and Allergies Home Medications ?Medication ?Instructions ?Recorded ?Confirmed ?Type sertraline 100 mg tablet 100 mg PO Q24H 03/27/2503/09 History Allergies Allergy/AdvReac Type Severity Reaction Status Date / Time No Known Allergies Allergy Verified 03/27/25 11:46 Visit Medications Sodium Chloride (Ns) 1,000 mls @ 75 mls/hr IV .[id number] [facility] Stop: 04/26/25 14:59 Ibuprofen (Ibuprofen Tab 400 Mg Tablet) 400 mg PO Q6HR PRN PRN Reason: Fever > 101 Stop: 04/26/25 14:56 Ibuprofen (Ibuprofen Tab 600 Mg Tablet) 600 mg PO Q6H PRN PRN Reason: PAIN SCALE 1-3 (mild Stop: 04/26/25 14:56 Ondansetron HCl (Ondansetron Inj 2 Mg/Ml Inj 2 Ml) 4 mg IVP Q6H PRN; Protocol PRN Reason: NAUSEA OR VOMITING Stop: 04/26/25 14:56 Pantoprazole Sodium (Pantoprazole 40 Mg Tablet) 40 mg PO QDAY [facility] Stop: 04/27/25 08:59 Discontinued Medications Diazepam (Diazepam Inj 5 Mg/Ml Vial 2 Ml) 5 mg IVP X1 ONE Stop: 03/27/25 11:30 Diazepam (Diazepam Inj 5 Mg/Ml Vial 2 Ml) 5 mg IVP X1 ONE Stop: 03/27/25 13:50 Last Admin: 03/27/25 14:18 Dose: 5 mg Sodium Chloride (Ns) 1,000 mls @ 999 mls/hr IV .Q1H1M ONE Stop: 03/27/25 12:40 Last Admin: 03/27/25 13:55 Dose: Not Given Lactated Ringer's (Lactated Ringers) 1,000 mls @ 999 mls/hr IV .Q1H1M ONE Stop: 03/27/25 14:30 Last Admin: 03/27/25 14:20 Dose: 999 mls/hr Lactated Ringer's (Lactated Ringers) 1,000 mls @ 999 mls/hr IV .Q1H1M ONE Stop: 03/27/25 14:32 Last Admin: 03/27/25 14:20 Dose: 999 mls/hr Assessment & Plan Plan 29F with PMH of depression BIB EMS for alcohol withdrawal. Patient has been drinking heavily since 5-6 month ago. Frequency: almost daily (1/4-1/2 bottle of Vodka). Last drink this morning at 1000 (1/2 bottle of Vodka). Patient reports persistent nausea, emesis, tremor, sweating, anxiety, restlessness and presthesia x 1-2months. Denies AH/VH. Reports severe occipital headache and some vision changes, SOB and chest discomf. Denies any hematemesis, hematuria, dysuria or hematuria. ED course: Received 2L of LR, 1L of NS, and 2x 5mg Diazepam #Alcohol withdrawal #Alcohol use disorder #Lactate acidosis with anion gap Typically drinks 1/2-1/4 bottle of vodka almost daily x5-6 months. Last drink a few hours prior to admission (1/2 bottle of Vodka) Diaphoretic and tachycardia of 113 on admission. lactate of 7.6 (Improved to 2.0) with anion gap of 21 UDS +amphetamines CIWA of 17 (tremor, N/V, tactile paresthesia, diaphoresis, anxiety, agitation, headache) after given x2 Diazepam 5mg Plan: - CIWA protocol with diazepam - Librium 50 PO q8 scheduled - Thiamine IV 100 BID - Folate 1mg BID - Multivitamins PO qday if tolerates PO - Seizure precautions - Ordered blood ethanol level - IVF maintenance at 75 - Will consider Phenobarbital if withdrawal continues or worsens #Chest pain Patient reports chest discomfort and shortness of breath. Saturating at 99% on RA with unremarkable physical exam. Most likely due to anxiety and alcohol withdrawal. Initial trop: 0.049 Plan: -Ordered EKG -Repeat trop at 2100 #Cystitis Patient denies any dysuria or hematuria. UA positive for Nitrites, blood, ketones and proteins. Negative for bacteria and Leukocyte esterase. Suprapubic tenderness noted one exam. Plan: - Pending urine culture - CTM #Alcohol hepatitis Chronic, per patient. AST 152, ALT 77 Plan: - CTM # Depression Managed with sertraline Plan: -Will continue home sertraline once med rec is complete Health Maintenance: Disposition: Admit to Tele Feeding: Regular diet Thromboprophylaxis: SCDs GI prophylaxis: Protonix Code Status: Full code Plan discussed with senior residen Dr. Roca and attending physician Dr. Isaías Joseph DO PGY-1 Attending Provider Attestation/Addendum Patricia Nolan DO, attest that I was physically present for the ferrera portions of the service and evaluated the patient with the resident and I reviewed and discussed the case with the resident and agree with the resident's findings and plans of care as documented above Patient is a 29 year old female with Pmhx of depression on sertraline who was brought to the ED due to acute alcohol withdrawal. Patient states that her last drink was vodka this morning at 10am. Patient states that she has tried to stop drinking, but goes into withdrawals and subsequently drinks more alcohol. She drinks about a quarter to half a bottle of vodka daily. Patient denies any history of seizures otherwise. Patient is very tremulous on exam and is somewhat agitated, very anxious. She reports some pain in her lower abdomen. She endorses nausea, but no vomiting. She denies any tactile, auditory or visual hallucinations. CIWA score about 18 currently. Will admit to telemetry for further workup and medical management of acute alcohol withdrawal. Troponin was detectable, but negative. EKG shows no ST or T wave changes. She is tachycardic. Will f/u with repeat troponins.
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
[2025-03-27 15:41] LABS: Lactic Acid, 3 HR 2.0 mMol/L (0.4-2.0)
[2025-03-27 16:00] LABS: Alcohol, Blood Medical < 10.0 mg/dL (0-10.0)
[2025-03-27 16:02] LABS: Troponin I 0.049 ng/mL (0.0-0.045)
--- NOTE | 2025-03-27 16:15 | EKG_ITS ---
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
[2025-03-27] MEDS: MULTIVITAMINS TABLET 1 TAB PO (16:17)
[2025-03-27] MEDS: METOCLOPRAMIDE INJ 5 MG/ML VIAL 2 ML 10 MG IVP (16:25)
[2025-03-27] MEDS: SODIUM CHLORIDE 0.9% 1000 ML 1,000 ML 75 ML IV (16:25)
[2025-03-27 16:54] LABS: Anion Gap 17 (7-16); BUN/Creatinine Ratio 8 Ratio (12-20); Blood Urea Nitrogen < 5 mg/dL (9-23); Calcium 9.8 mg/dL (8.3-10.6); Carbon Dioxide 19.9 mMol/L (20.0-31.0); Chloride 98 mMol/L (98-107); Creatinine (Component) 0.6 mg/dL (0.6-1.3); Estimated Creatinine Clearance 146.9 mL/min (>60); Glucose 82 mg/dL (74-106); Osmolality,Calculated 266 (275-295); Potassium 4.6 mMol/L (3.4-5.1); Sodium 135 mMol/L (136-145); eGFR > 60 See Note
[2025-03-27] MEDS: DIAZEPAM INJ 5 MG/ML VIAL 2 ML 2.5 MG IVP (17:43)
--- NOTE | 2025-03-27 19:13 | PC.NURSE ---
called pharmacy to clarify if scheduled 2200 dose can be given due to last administration dose was at 1617 , pharmacy stated ok to give 2200 scheduled dose.
[2025-03-27] MEDS: THIAMINE INJ 100 MG/ML VIAL 2 ML IVP (21:33)
[2025-03-27] MEDS: FOLIC ACID INJ 1 MG/0.2 ML IVP (21:33)
[2025-03-27 22:32] LABS: Troponin I 1.566 ng/mL (0.0-0.045)
[2025-03-28] VITALS (9 sets, daily range): BP systolic 106–134; BP diastolic 73–95; PULSE 97–149; RESP 14–98; TEMP 36.1–36.6; O2SAT 97–99
[2025-03-28 02:13] LABS: Basophils # (Auto) 0.0 Thou/mm3 (0.0-0.2); Basophils % (Auto) 0 % (0-2.5); Eosinophils # (Auto) 0.1 Thou/mm3 (0.0-0.5); Eosinophils % (Auto) 1 % (0-10); Hematocrit 42.3 % (36.0-46.0); Hemoglobin 13.9 g/dL (12.0-16.0); Immature Granulocytes Auto 0.04 Thou/mm3 (0.00-0.00); Lymphocytes # (Auto) 1.1 Thou/mm3 (1.0-4.8); Lymphocytes % (Auto) 11 % (10-50); Mean Corpuscular HGB Conc 32.9 g/dl (31.0-37.0); Mean Corpuscular Hemoglobin 32.0 pg (25.0-35.0); Mean Corpuscular Volume 98 fL (80-100); Monocytes # (Auto) 0.8 Thou/mm3 (0.0-0.8); Monocytes % (Auto) 8 % (0-12); Neutrophils # (Auto) 7.9 Thou/mm3 (1.8-7.7); Neutrophils % (Auto) 79 % (37-80); Nucleated Red Blood Cell # 0.00 Thou/mm3 (0.00-0.00); Nucleated Red Blood Cell % 0 /100 WBC (0); Platelet Count 140 Thou/mm3 (140-440); RDW Standard Deviation 45.6 fL (36.4-46.3); Red Blood Count 4.34 Miln/mm3 (4.00-5.20); White Blood Count 10.0 Thou/mm3 (3.6-11.0)
[2025-03-28 03:07] LABS: Alanine Aminotransferase 53 U/L (10-49); Albumin, Serum 4.1 gm/dL (3.5-5.0); Albumin/Globulin Ratio 1.9 (1.2-2.2); Alkaline Phosphatase 76 U/L (46-116); Anion Gap 11 (7-16); Aspartate Amino Transferase 81 U/L (0-34); BUN/Creatinine Ratio 8 Ratio (12-20); Bilirubin,Total 1.1 mg/dL (0.3-1.2); Blood Urea Nitrogen 6 mg/dL (9-23); Calcium 9.5 mg/dL (8.3-10.6); Calcium (Corrected) 9.5 mg/dL (8.5-10.1); Carbon Dioxide 29.5 mMol/L (20.0-31.0); Cardiac Risk Estimate 1.5 RATIO (3.7-5.6); Chloride 101 mMol/L (98-107); Cholesterol 236 mg/dL (132-200); Creatinine (Component) 0.8 mg/dL (0.6-1.3); Estimated Creatinine Clearance 109.9 mL/min (>60); Globulin 2.2 gm/dL (2.3-3.5); Glucose 89 mg/dL (74-106); HDL Cholesterol 156 mg/dL (40-60); LDL Cholesterol,Calculated 66 mg/dL (0-130); Magnesium 1.8 mg/dL (1.6-2.6); Osmolality,Calculated 277 (275-295); Phosphorous 3.3 mg/dL (2.4-5.1); Potassium 4.1 mMol/L (3.4-5.1); Sodium 141 mMol/L (136-145); Total Protein 6.3 gm/dL (5.7-8.2); Triglycerides 72 mg/dL (30-150); eGFR > 60 See Note
[2025-03-28 03:09] LABS: Troponin I 1.066 ng/mL (0.0-0.045)
[2025-03-28] MEDS: SODIUM CHLORIDE 0.9% 1000 ML 1,000 ML 75 ML IV ×2 (06:24→17:35)
--- NOTE | 2025-03-28 07:36 | EKG_ITS ---
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
--- NOTE | 2025-03-28 08:13 | ESPR_ITS ---
<Statement entered by Noah Nesbitt MD - 03/28/25 17:11> Senior Resident Attestation: I supervised/discussed management plan with commercial intern physician Dr. Joseph, and was involved in the care of this patient. I personally saw and examined the patient and discussed the assessment and plan with the entire medicine team, including my attending. I agree with the assessment and plan as documented. Patient reports no new complaints today. Her CIWA score is 0. Her troponin is downtrending, last reading 0.62. Due to significantly elevated initial troponin cardiology was consulted and echo was ordered. Will continue current management, possible discharge tomorrow. Patient's care was discussed with attending physician, Dr. Metz. Noah Nesbitt MD PGY-3. Documentation for date of: 03/28/25 Subjective Subjective Interval history: 03/28/25: NAEON. VSS except for tachy cardia of 100-120. Patient received CIWA of 0 by RN overnight and did not receive any Diazepams. Patient reports significant imporvement of her symptoms from yesterday. Patient denies any chest pain, dyspnea, nausea, vomiting, headache, dysuria, hematuria, A/V hallucinations, paresthesia or visual changes. Exam Vital Signs Temp Pulse Resp BP Pulse Ox O2 Del Method 96.9 F 97 15 123/93 H 98 Room Air 03/28/25 04:00 03/28/25 04:00 03/28/25 04:00 03/28/25 04:00 03/28/25 04:00 03/28/25 04:00 Narrative Exam General: WDWN, in no acute distress Head: NCAT Neck: trachea midline, no thyromegaly Resp: CTAB, no wheezing, in no respiratory distress CV: Tachycardia with regular rhythm, No gallops or murmurs appreciated. +2 radial pulses b/l Ext: no pretibial edema noted, no gross deformity Skin: scattered ecchymosis noted on bilateral upper and lower extremity Neuro: CN 2-12 grossly intact, finger to nose intact. Very minimal tremor of UE when arms extended Psych: A/Ox4, calm affect Objective Labs 03/29/25 05:43 03/29/25 05:43 Labs: Laboratory Results - last 24 hr 03/27/25 03/27/25 03/27/25 11:57 13:11 13:13 WBC 12.2 H RBC 4.56 Hgb 14.7 Hct 44.4 MCV 97 MCH 32.2 MCHC 33.1 RDW Std Deviation 44.1 Plt Count 184 Neut % (Auto) 90 H Lymph % (Auto) 4 L Nash % (Auto) 5 Eos % (Auto) 0 Baso % (Auto) 1 Neut # (Auto) 11.0 H Lymph # (Auto) 0.5 L Nash # (Auto) 0.6 Eos # (Auto) 0.0 Baso # (Auto) 0.1 Immature Gran # (Auto) 0.06 H Absolute Nucleated RBC 0.00 Immature Gran % 1 H Nucleated RBC % 0 Sodium 135 L Potassium 4.8 Chloride 95 L Carbon Dioxide 18.7 L Anion Gap 21 H BUN 6 L Creatinine 0.8 Estim Creat Clear Calc Not Performed. eGFR > 60 BUN/Creatinine Ratio 8 L Glucose 180 H Calculated Osmolality 272 L Lactic Acid 7.6 H* Calcium 10.4 Corrected Calcium 10.4 H Phosphorus Magnesium 1.7 Total Bilirubin 1.4 H AST 152 H ALT 77 H Alkaline Phosphatase 91 Troponin I 0.049 H* Total Protein 7.3 Albumin 4.8 Globulin 2.5 Albumin/Globulin Ratio 1.9 Triglycerides Cholesterol LDL Cholesterol, Calc HDL Cholesterol Cholesterol/HDL Ratio Lipase 53 HCG, Qual Negative Ur Collection Type Voided Urine Color Lt-Yellow Urine Clarity Clear Urine pH 6.0 Ur Specific [place] 1.020 Urine Protein 3+ A Urine Glucose (UA) Negative Urine Ketones 3+ A Urine Blood 3+ A Urine Nitrite Positive Urine Bilirubin Negative Urine Urobilinogen (Auto) Negative Ur Leukocyte Esterase Negative Urine RBC 3 Urine WBC 5 Ur Squamous Epith Cells < 1 Urine Bacteria None Hyaline Casts 1 Ur Culture Indicated? Yes Urine Opiates Screen Negative Urine Fentanyl Screen Negative Ur Barbiturates Screen Negative U Amphetamin/Meth Scrn Positive A U Benzodiazepines Scrn Negative U Cocaine Metab Screen Negative U Marijuana (THC) Screen Negative Ethyl Alcohol < 3.0 03/27/25 03/27/25 03/28/25 15:21 21:47 01:55 WBC 10.0 RBC 4.34 Hgb 13.9 Hct 42.3 MCV 98 MCH 32.0 MCHC 32.9 RDW Std Deviation 45.6 Plt Count 140 D Neut % (Auto) 79 Lymph % (Auto) 11 Nash % (Auto) 8 Eos % (Auto) 1 Baso % (Auto) 0 Neut # (Auto) 7.9 H Lymph # (Auto) 1.1 Nash # (Auto) 0.8 Eos # (Auto) 0.1 Baso # (Auto) 0.0 Immature Gran # (Auto) 0.04 H Absolute Nucleated RBC 0.00 Immature Gran % 0 Nucleated RBC % 0 Sodium 135 L 141 Potassium 4.6 4.1 D Chloride 98 101 Carbon Dioxide 19.9 L 29.5 Anion Gap 17 H 11 BUN < 5 L 6 L Creatinine 0.6 0.8 Estim Creat Clear Calc 146.9 109.9 eGFR > 60 > 60 BUN/Creatinine Ratio 8 L 8 L Glucose 82 D 89 Calculated Osmolality 266 L 277 Lactic Acid 2.0 Calcium 9.8 9.5 Corrected Calcium 9.5 Phosphorus 3.3 Magnesium 1.8 Total Bilirubin 1.1 AST 81 H ALT 53 H Alkaline Phosphatase 76 Troponin I 1.566 H* D 1.066 H* D Total Protein 6.3 Albumin 4.1 D Globulin 2.2 L Albumin/Globulin Ratio 1.9 Triglycerides 72 Cholesterol 236 H LDL Cholesterol, Calc 66 HDL Cholesterol 156 H Cholesterol/HDL Ratio 1.5 L Lipase HCG, Qual Ur Collection Type Urine Color Urine Clarity Urine pH Ur Specific [place] Urine Protein Urine Glucose (UA) Urine Ketones Urine Blood Urine Nitrite Urine Bilirubin Urine Urobilinogen (Auto) Ur Leukocyte Esterase Urine RBC Urine WBC Ur Squamous Epith Cells Urine Bacteria Hyaline Casts Ur Culture Indicated? Urine Opiates Screen Urine Fentanyl Screen Ur Barbiturates Screen U Amphetamin/Meth Scrn U Benzodiazepines Scrn U Cocaine Metab Screen U Marijuana (THC) Screen Ethyl Alcohol < 10.0 Quality Measures Quality Measures none Assessment & Plan Assessment Current Active Medications: Generic Name Dose Route Start Last Admin Trade Name Freq PRN Reason Stop Dose Admin Acetaminophen 650 mg 03/27/25 16:15 Acetaminophen 325 Mg Tablet PO 04/26/25 16:14 Q4HR PRN Fever >101, pain 1-3 Chlordiazepoxide HCl 50 mg 03/27/25 15:45 03/28/25 05:17 Chlordiazepoxide Hcl 25 Mg Capsule PO 03/28/25 15:44 50 mg Q8HR YONG Administration Diazepam 2.5 mg 03/27/25 15:32 03/27/25 17:43 Diazepam Inj 5 Mg/Ml Vial 2 Ml IVP 04/01/25 15:31 2.5 mg Q2HR PRN Administration CIWA SCORE 8-13 Diazepam 5 mg 03/27/25 15:33 Diazepam Inj 5 Mg/Ml Vial 2 Ml IVP 04/01/25 15:32 Q2HR PRN CIWA SCORE 14-19 Diazepam 10 mg 03/27/25 15:33 Diazepam Inj 5 Mg/Ml Vial 2 Ml IVP 04/01/25 15:32 Q2HR PRN CIWA SCORE 20-25 Folic Acid 1 mg 03/27/25 21:00 03/27/25 21:33 Folic Acid Inj 1 Mg/0.2 Ml IVP 04/26/25 20:59 1 mg BID YONG Administration Sodium Chloride 1,000 mls @ 75 mls/hr 03/27/25 15:00 03/28/25 06:24 Ns IV 04/26/25 14:59 75 mls/hr .[id number] YONG Administration Magnesium Sulfate 2 gm in 50 mls @ 25 mls/hr 03/28/25 07:36 Magnesium Sulfate Ivpb IV 03/28/25 09:35 X1 ONE Lorazepam 0.5 mg 03/27/25 15:32 Lorazepam 0.5 Mg Tablet PO 04/01/25 15:31 Q4HR PRN CIWA Score 2-7 Metoclopramide HCl 10 mg 03/27/25 15:08 03/27/25 16:25 Metoclopramide Inj 5 Mg/Ml Vial 2 Ml IVP 04/26/25 15:07 10 mg Q6HR PRN Administration NAUSEA OR VOMITING Protocol Multivitamins 1 tab 03/27/25 15:45 03/27/25 16:17 Multivitamins Tablet PO 04/26/25 15:44 1 tab QDAY YONG Administration Pantoprazole Sodium 40 mg 03/28/25 09:00 Pantoprazole Inj 40 Mg Vial IVP 04/27/25 08:59 QDAY YONG Sertraline HCl 100 mg 03/28/25 16:45 Sertraline Hcl 25 Mg Tablet PO 04/27/25 16:44 Q24H YONG Thiamine HCl 100 mg 03/27/25 21:00 03/27/25 21:33 Thiamine Inj 100 Mg/Ml Vial 2 Ml IVP 04/26/25 20:59 100 mg BID YONG Administration Plan 29F with PMH of depression BIB EMS for alcohol withdrawal. Patient has been drinking heavily since 5-6 month ago. Frequency: almost daily (1/4-1/2 bottle of Vodka). Last drink this morning at 1000 (1/2 bottle of Vodka). Patient reports persistent nausea, emesis, tremor, sweating, anxiety, restlessness and presthesia x 1-2months. Denies AH/VH. Reports severe occipital headache and some vision changes, SOB and chest discomf. Denies any hematemesis, hematuria, dysuria or hematuria. ED course: Received 2L of LR, 1L of NS, and 2x 5mg Diazepam #Alcohol withdrawal (Improved) #Alcohol use disorder #Lactate acidosis with anion gap (Resolved) Typically drinks 1/2-1/4 bottle of vodka almost daily x5-6 months. Last drink a few hours prior to admission (1/2 bottle of Vodka) 8/20 Diaphoretic and tachycardia of 113 on admission. lactate of 7.6 (Improved to 2.0) with anion gap of 21 which improved to 11. UDS +amphetamines. Patient reports taking phen-phen (Fenfluramine/phentermine) for weight loss. CIWA of 17 (tremor, N/V, tactile paresthesia, diaphoresis, anxiety, agitation, headache) after given x2 Diazepam 5mg on admission. Patient's CIWA is zero today. Symptoms on admission resolved completely except for tachycardia. Plan: - CIWA protocol with diazepam - Decrease Librium to 50 PO BID - Continue Thiamine IV 100 BID - Continue Folate 1mg BID - Multivitamins PO qday if tolerates PO - Seizure precautions - IVF maintenance at 75 - Will consider Phenobarbital if withdrawal worsens #Chest pain (Improved) #NSTEMI Type 2 Patient reports chest discomfort and shortness of breath. Saturating at 99% on RA with unremarkable physical exam. NSTEMI type 2 most likely due to demand ischemia from anxiety with tachycardia and alcohol withdrawal. Of note, UDS +amphetamines. Patient reports taking phen- phen (Fenfluramine/phentermine) for weight loss which may have played a role here as well. Initial trop: 0.049 --> 1.566 -->1.066 --> 0.628 EKG shows sinus tachycardia with QTc of [address] elevation Plan: - Ordered repeat EKG - Cardiology Dr. Tolentino was consulted, appreciate recs - Ordered TTE - Stop reglan given prolonged QTc while being on sertraline #Cystitis Patient denies any dysuria or hematuria. UA positive for Nitrites, blood, ketones and proteins. Negative for bacteria and Leukocyte esterase. Suprapubic tenderness noted on exam. Urine culture positive for gram negative rods Plan: - Start Rocephin 1g qday - Pending urine sensitivity #Alcohol hepatitis (Improved) Chronic, per patient. AST 152, ALT 77 on admission which down-trended to 81 and 53 respectively. Plan: - CTM # Depression Managed with sertraline Plan: -Continue home sertraline once med rec is complete Health Maintenance: Disposition: Admit to Tele Feeding: Regular diet Thromboprophylaxis: SCDs GI prophylaxis: Protonix Code Status: Full code Plan discussed with senior residen Dr. Nesbitt and attending physician Dr. Isaías Joseph DO PGY-1 Attending Provider Attestation/Addendum Patricia Nolan DO, attest that I was physically present for the ferrera portions of the service and evaluated the patient with the resident and I reviewed and discussed the case with the resident and agree with the resident's findings and plans of care as documented above Patient seen and evaluated this AM. CIWA score of 3 as patient remains to ahve mild tremors and is anxious. Patient has been quite tachycardic throughout the day. Troponin downtrending from admission. Likely demand ischemia. Patient denied any chest pain or shortness of breath throughout the onset of her symptoms and hospitalization. She reports feeling improved. Discussed finding of positive amphetamine, patient reports that she was taking phentermine for weight loss. Will consult cardiology regarding NSTEMI. Will taper librium and continue to monitor patient on CIWA protocol.
[2025-03-28] MEDS: Magnesium Sulfate 2 GM Ivpb 2 GM/50 ML BAG IV (08:51)
[2025-03-28] MEDS: FOLIC ACID INJ 1 MG/0.2 ML IVP ×2 (08:51→20:04)
[2025-03-28] MEDS: THIAMINE INJ 100 MG/ML VIAL 2 ML IVP ×2 (08:51→20:04)
[2025-03-28] MEDS: MULTIVITAMINS TABLET 1 TAB PO (08:51)
[2025-03-28 09:08] LABS: Troponin I 0.628 ng/mL (0.0-0.045)
[2025-03-28] MEDS: cefTRIAXone/D5w 1gm IV premix 1 GM/50 ML BAG IV (11:08)
--- NOTE | 2025-03-28 12:00 | PC.NURSE ---
Dr. Nesbitt made aware of patients increased heart rate in the 150's. Per MD the team will come and see her. Patient denies any symptoms. She is sitting up in bed eating lunch.
--- NOTE | 2025-03-28 13:24 | PC.SS ---
SS follow up note; WA protocol, patient will discharge home when medically cleared.
[2025-03-28] MEDS: DIAZEPAM INJ 5 MG/ML VIAL 2 ML IVP (14:30)
--- NOTE | 2025-03-28 15:29 | PC.SS ---
Patient Sandra Dickens is a 29 Year old female admitted for Alcohol Withdrawal. SS met with patient to discuss discharge plan. Patient reports she lives at home with her 2 children. Patient reports her friend, Kellie Espinoza is her surrogate decision maker, [phone]. Patient is able to complete all ADL's independently and does not utilize any source of DME to assist with ambulation. Choice of Pharmacy is [facility]. Family at bedside, SS was not able to provide Resources, SS will attempt at a later time. At time of discharge patient will return home, friend will provide transportation. Next of kin, Friend, Jackemil Espinoza Discharge plan: Home PCP Trino Chen
[2025-03-28] MEDS: SERTRALINE HCL 25 MG TABLET 100 MG PO (17:24)
--- NOTE | 2025-03-28 19:19 | PC.NURSE ---
Dr. Salazar made aware of patients sustained elevated heart rate. Per Dr. Salazar he will get in touch with seed yeast operator and provide an intervention. Metoprolol ordered.
--- NOTE | 2025-03-28 19:35 | ESCONSULT_ITS ---
<Statement entered by Linda Tolentino MD - 03/28/25 23:07> I personally examined this patient in detail with resident physician Dr. Hardin PGY1 patient does not give any history of meth use but apparently took some phentermine pills for the last 10 to 10 days came to the hospital after heavy alcohol binge and withdrawal seizures alcohol withdrawal symptoms but positive for methamphetamine positive still positive for troponin level slight elevation type II troponin due to tachycardia and stress. Patient is post and recent delivery hence concerned about cardiomyopathy recommend cardiac echo for assessment of ejection fraction and renal function. Patient clearly has type II troponin elevation no need for anticoagulation Do not treat as myocardial infarction at this point since she does not have any symptoms suggestive of myocardial infarction of risk factors. HPI Data of Consult Requesting Physician: Patricia Metz DO Admitting Provider: Patricia Metz DO Attending Provider: Patricia Metz DO Primary Care Provider: Trino Chen MD Consult Narrative History of present illness: 29-year-old female with a PMH of depression who was brought in to the ED by ambulance with symptoms of alcohol withdrawal on 03/27/2025. She stated that she had been drinking heavily the past 5 or 6 months, almost daily with a quarter to half bottle of vodka. Her last drink was the morning that she presented, she had half a bottle of vodka. On presentation she reported persistent nausea, emesis, tremor, sweating, anxiety, and restlessness. She also reported shortness of breath and chest discomfort and resolved diarrhea at the time of presentation. She presented with a CIWA of 17 due to her tremors, nausea, tactile paresthesia, and diaphoresis. Her symptoms improved after being given Valium 5 mg twice. She presented with a troponin of 0.049 which up trended to 1.0 and then trended down to 0.6. The patient was admitted for alcohol withdrawal management. ED course: The patient received 2 L of LR, 1 L of normal saline, and 2 doses of 5 mg diazepam. History: Past medical history: depression. Medications: Sertraline Past surgical history: x 1 Social history: 14-1/2 bottle of vodka daily for the past several months, admits to buying a weight loss pill off of the street that she has been taking for a few weeks, denies cigarettes or other drug use. Allergies: No known drug allergies. Cardiology was consulted for management of the patient's tachycardia and elevated troponins. cc:: cc: Patricia Metz DO Review of Systems Review of Systems Narrative Review of Systems: Review of Systems: * General: Patient endorses anxiety. Denies fevers, chills. * HEENT: Denies headache, congestion, or sore throat. * Cardiac: Denies chest pain or palpitations. * Pulmonary: Denies shortness of breath or cough. * GI: Denies nausea, vomiting, diarrhea, constipation, melena, or hematochezia. * : Denies dysuria, hematuria, frequency, or urgency. * MSK: Denies pain in the extremities, joints, or myalgias. * Neuro: Denies weakness, numbness, vision changes, or speech difficulty. Exam Vital Signs Temp Pulse Resp BP Pulse Ox O2 Del Method 97.6 F 132 H 19 106/73 97 Room Air 03/28/25 16:00 03/28/25 16:00 03/28/25 16:00 03/28/25 16:00 03/28/25 16:00 03/28/25 16:00 Narrative Exam General: Young woman awake and in no acute distress. Conversational and non- toxic appearing. Neurologic: GCS 15. Alert and oriented x3, no gross neurological deficit, and patient able to move all 4 extremities. HEENT: Normocephalic, atraumatic, mucous membranes moist. Pupils reactive to light. Heart: Tachycardic, normal rhythm, normal S1 and S2, no murmurs. Lungs: Clear to auscultation bilaterally with no wheezing or crackles. Abdomen: Obese, soft, nondistended, nontender, positive bowel sounds. No guarding or rebound tenderness. Extremities: No edema. 2+ radial and dorsalis pedis pulses bilaterally. Skin: Warm. Dry. No rash or ecchymoses. Results Labs 03/28/25 01:55 03/28/25 01:55 Labs: Short CBC 03/28/25 Range/Units 01:55 WBC 10.0 (3.6-11.0) Thou/mm3 Hgb 13.9 (12.0-16.0) g/dL Hct 42.3 (36.0-46.0) % Plt Count 140 D (140-440) Thou/mm3 BMP 03/28/25 01:55 Sodium 141 Potassium 4.1 D Chloride 101 Carbon Dioxide 29.5 BUN 6 L Creatinine 0.8 Glucose 89 Calcium 9.5 Cardiac Enzymes 03/27/25 03/28/25 03/28/25 Range/Units 21:47 01:55 08:00 Troponin I 1.566 H* D 1.066 H* D 0.628 H* D (0.0-0.045) ng/mL Liver Function 03/28/25 Range/Units 01:55 Total Bilirubin 1.1 (0.3-1.2) mg/dL AST 81 H (0-34) U/L ALT 53 H (10-49) U/L Alkaline Phosphatase 76 (46-116) U/L Albumin 4.1 D (3.5-5.0) gm/dL Quality Measures Quality Measures none Medications Home Medications and Allergies Home Medications ?Medication ?Instructions ?Recorded ?Confirmed ?Type sertraline 100 mg tablet 100 mg PO Q24H 03/27/2503/09 History Allergies Allergy/AdvReac Type Severity Reaction Status Date / Time No Known Allergies Allergy Verified 03/27/25 11:46 Visit Medications Acetaminophen (Acetaminophen 325 Mg Tablet) 650 mg PO Q4HR PRN PRN Reason: Fever >101, pain 1-3 Stop: 04/26/25 16:14 Chlordiazepoxide HCl (Chlordiazepoxide Hcl 25 Mg Capsule) 50 mg PO BID YONG Stop: 03/29/25 20:59 Diazepam (Diazepam Inj 5 Mg/Ml Vial 2 Ml) 2.5 mg IVP Q2HR PRN PRN Reason: CIWA SCORE 8-13 Stop: 04/01/25 15:31 Last Admin: 03/27/25 17:43 Dose: 2.5 mg Diazepam (Diazepam Inj 5 Mg/Ml Vial 2 Ml) 5 mg IVP Q2HR PRN PRN Reason: CIWA SCORE 14-19 Stop: 04/01/25 15:32 Last Admin: 03/28/25 14:30 Dose: 5 mg Diazepam (Diazepam Inj 5 Mg/Ml Vial 2 Ml) 10 mg IVP Q2HR PRN PRN Reason: CIWA SCORE 20-25 Stop: 04/01/25 15:32 Folic Acid (Folic Acid Inj 1 Mg/0.2 Ml) 1 mg IVP BID YONG Stop: 04/26/25 20:59 Last Admin: 03/28/25 08:51 Dose: 1 mg Sodium Chloride (Ns) 1,000 mls @ 75 mls/hr IV .[id number] YONG Stop: 04/26/25 14:59 Last Admin: 03/28/25 17:35 Dose: 75 mls/hr Ceftriaxone Sodium/Dextrose (Rocephin/D5w 1gm Iv Premix) 1 gm in 50 mls @ 100 mls/hr IV QDAY YONG Stop: 04/04/25 09:37 Last Admin: 03/28/25 11:08 Dose: 100 mls/hr Lorazepam (Lorazepam 0.5 Mg Tablet) 0.5 mg PO Q4HR PRN PRN Reason: CIWA Score 2-7 Stop: 04/01/25 15:31 Last Admin: 03/28/25 09:16 Dose: 0.5 mg Metoprolol Tartrate (Metoprolol Tartrate 25 Mg Tablet) 25 mg PO BID YONG Stop: 04/27/25 20:59 Multivitamins (Multivitamins Tablet) 1 tab PO QDAY YONG Stop: 04/26/25 15:44 Last Admin: 03/28/25 08:51 Dose: 1 tab Pantoprazole Sodium (Pantoprazole Inj 40 Mg Vial) 40 mg IVP QDAY YONG Stop: 04/27/25 08:59 Last Admin: 03/28/25 08:51 Dose: 40 mg Sertraline HCl (Sertraline Hcl 25 Mg Tablet) 100 mg PO Q24H YONG Stop: 04/27/25 16:44 Last Admin: 03/28/25 17:24 Dose: 100 mg Thiamine HCl (Thiamine Inj 100 Mg/Ml Vial 2 Ml) 100 mg IVP BID YONG Stop: 04/26/25 20:59 Last Admin: 03/28/25 08:51 Dose: 100 mg Discontinued Medications Chlordiazepoxide HCl (Chlordiazepoxide Hcl 25 Mg Capsule) 50 mg PO Q8HR YONG Stop: 03/28/25 15:44 Last Admin: 03/28/25 05:17 Dose: 50 mg Diazepam (Diazepam Inj 5 Mg/Ml Vial 2 Ml) 5 mg IVP X1 ONE Stop: 03/27/25 11:30 Last Admin: 03/27/25 15:33 Dose: 5 mg Diazepam (Diazepam Inj 5 Mg/Ml Vial 2 Ml) 5 mg IVP X1 ONE Stop: 03/27/25 13:50 Last Admin: 03/27/25 14:18 Dose: 5 mg Diazepam (Diazepam Inj 5 Mg/Ml Vial 2 Ml) 5 mg IVP Q4HR PRN PRN Reason: CI 14-19 Stop: 04/01/25 15:20 Diazepam (Diazepam Inj 5 Mg/Ml Vial 2 Ml) 2.5 mg IVP Q4HR PRN PRN Reason: CI 8 Stop: 04/01/25 15:24 Diazepam (Diazepam Inj 5 Mg/Ml Vial 2 Ml) 10 mg IVP Q2HR PRN PRN Reason: Stop: 04/01/25 15:59 Diazepam (Diazepam Inj 5 Mg/Ml Vial 2 Ml) 2.5 mg IVP Q2HR YONG Stop: 04/01/25 15:59 Diazepam (Diazepam Inj 5 Mg/Ml Vial 2 Ml) 5 mg IVP Q2HR YONG Stop: 04/01/25 15:59 Diazepam (Diazepam Inj 5 Mg/Ml Vial 2 Ml) 10 mg IVP PRN PRN PRN Reason: Breakthrough agitation Stop: 04/01/25 15:26 Diltiazem HCl (Diltiazem 30 Mg Tablet) 30 mg PO X1 ONE Stop: 03/27/25 18:33 Last Admin: 03/27/25 18:44 Dose: Not Given Sodium Chloride (Ns) 1,000 mls @ 999 mls/hr IV .Q1H1M ONE Stop: 03/27/25 12:40 Last Admin: 03/27/25 13:55 Dose: Not Given Lactated Ringer's (Lactated Ringers) 1,000 mls @ 999 mls/hr IV .Q1H1M ONE Stop: 03/27/25 14:30 Last Infusion: 03/27/25 15:40 Dose: Infused Lactated Ringer's (Lactated Ringers) 1,000 mls @ 999 mls/hr IV .Q1H1M ONE Stop: 03/27/25 14:32 Last Infusion: 03/27/25 15:40 Dose: Infused Magnesium Sulfate (Magnesium Sulfate Ivpb) 2 gm in 50 mls @ 25 mls/hr IV X1 ONE Stop: 03/28/25 09:35 Last Admin: 03/28/25 08:51 Dose: 25 mls/hr Ibuprofen (Ibuprofen Tab 400 Mg Tablet) 400 mg PO Q6HR PRN PRN Reason: Fever > 101 Stop: 04/26/25 14:56 Ibuprofen (Ibuprofen Tab 600 Mg Tablet) 600 mg PO Q6H PRN PRN Reason: PAIN SCALE 1-3 (mild Stop: 04/26/25 14:56 Lorazepam (Lorazepam 0.5 Mg Tablet) 0.5 mg PO Q4HR PRN PRN Reason: CIWA Score 2-6 Stop: 04/01/25 15:21 Lorazepam (Lorazepam 0.5 Mg Tablet) 1 mg PO Q4HR PRN PRN Reason: CIWA SCORE 7-11 Stop: 04/01/25 15:21 Lorazepam (Lorazepam 0.5 Mg Tablet) 2 mg PO Q4HR PRN PRN Reason: CIWA SCORE 12-15 Stop: 04/01/25 15:21 Lorazepam (Lorazepam 0.5 Mg Tablet) 0.5 mg PO Q4HR PRN PRN Reason: CIWA Score 2-7 Stop: 04/01/25 15:21 Metoclopramide HCl (Metoclopramide Inj 5 Mg/Ml Vial 2 Ml) 10 mg IVP Q6HR PRN; Protocol PRN Reason: NAUSEA OR VOMITING Stop: 04/26/25 15:07 Last Admin: 03/27/25 16:25 Dose: 10 mg Non-Formulary Medication (Sertraline) 100 mg PO Q24H YONG Stop: 04/26/25 16:44 Ondansetron HCl (Ondansetron Inj 2 Mg/Ml Inj 2 Ml) 4 mg IVP Q6H PRN; Protocol PRN Reason: NAUSEA OR VOMITING Stop: 04/26/25 14:56 Pantoprazole Sodium (Pantoprazole 40 Mg Tablet) 40 mg PO QDAY YONG Stop: 04/27/25 08:59 Pantoprazole Sodium (Pantoprazole Inj 40 Mg Vial) 40 mg IVP X1 ONE Stop: 03/27/25 15:10 Last Admin: 03/27/25 16:24 Dose: 40 mg Assessment & Plan Plan 29-year-old female with a PMH of depression who was brought in to the ED by ambulance with symptoms of alcohol withdrawal on 03/27/2025. She presented with a troponin of 0.049 which up trended to 1.0 and then trended down to 0.6. The patient was admitted for alcohol withdrawal management. The patient is tachycardic with a rate in the 120s upon cardiac consultation. Cardiology was consulted for management of the patient's elevated troponins and tachycardia. #Troponin elevation #Chest pain #Sinus tachycardia * The patient presented with a troponin of 0.049 which trended upwards to 1.0 and trended back downwards to 0.6 * Per the primary team, the patient was complaining of chest discomfort but denied any chest pain or shortness of breath on cardiac consultation * The patient's rate is tachycardic in the 120s, rises to the 150s when the patient walks to the restroom * Consider that the patient is undergoing alcohol withdrawal, has a history of anxiety, and is taking an unknown substance for weight loss that may be a stimulant in the presence of her sinus tachycardia * The patient's elevated troponins are likely not ischemic in nature but stress related due to tachycardia * The patient's urinalysis is positive for amphetamines, which may reinforce the notion that her weight loss pill may be a stimulant which can contribute to sinus tachycardia Plan: * Cardiology team recommends to start the patient on metoprolol tartrate 25 mg twice daily, patient should be able to handle it given that her most recent blood pressure after cardiac consultation was a systolic in the 130s per the nurse. * Patient was encouraged to stop taking her unknown weight loss pill * Continue home sertraline for her anxiety #Alcohol withdrawal #Alcohol use disorder #Lactic acidosis with anion gap #Cystitis #Alcoholic hepatitis # depression The rest of the patient's hospital problems will be managed per the primary team. Patient was seen and discussed with my attending physician Dr. Tolentino. Hector Hardin DO PGY-1.
[2025-03-28] MEDS: METOPROLOL TARTRATE 25 MG TABLET PO (20:04)
[2025-03-29] VITALS (10 sets, daily range): BP systolic 97–119; BP diastolic 71–89; PULSE 86–115; RESP 14–98; TEMP 36.1–36.6; O2SAT 95–98
[2025-03-29 06:20] LABS: Basophils # (Auto) 0.0 Thou/mm3 (0.0-0.2); Basophils % (Auto) 0 % (0-2.5); Eosinophils # (Auto) 0.2 Thou/mm3 (0.0-0.5); Eosinophils % (Auto) 2 % (0-10); Hematocrit 41.0 % (36.0-46.0); Hemoglobin 13.3 g/dL (12.0-16.0); Immature Granulocytes Auto 0.04 Thou/mm3 (0.00-0.00); Lymphocytes # (Auto) 1.3 Thou/mm3 (1.0-4.8); Lymphocytes % (Auto) 17 % (10-50); Mean Corpuscular HGB Conc 32.4 g/dl (31.0-37.0); Mean Corpuscular Hemoglobin 32.4 pg (25.0-35.0); Mean Corpuscular Volume 100 fL (80-100); Monocytes # (Auto) 0.7 Thou/mm3 (0.0-0.8); Monocytes % (Auto) 10 % (0-12); Neutrophils # (Auto) 5.3 Thou/mm3 (1.8-7.7); Neutrophils % (Auto) 70 % (37-80); Nucleated Red Blood Cell # 0.00 Thou/mm3 (0.00-0.00); Nucleated Red Blood Cell % 0 /100 WBC (0); Platelet Count 123 Thou/mm3 (140-440); RDW Standard Deviation 45.5 fL (36.4-46.3); Red Blood Count 4.10 Miln/mm3 (4.00-5.20); White Blood Count 7.5 Thou/mm3 (3.6-11.0)
[2025-03-29 06:54] LABS: Alanine Aminotransferase 38 U/L (10-49); Albumin, Serum 3.6 gm/dL (3.5-5.0); Albumin/Globulin Ratio 1.8 (1.2-2.2); Alkaline Phosphatase 71 U/L (46-116); Anion Gap 12 (7-16); Aspartate Amino Transferase 73 U/L (0-34); BUN/Creatinine Ratio 13 Ratio (12-20); Bilirubin,Total 0.6 mg/dL (0.3-1.2); Blood Urea Nitrogen 10 mg/dL (9-23); Calcium 8.5 mg/dL (8.3-10.6); Calcium (Corrected) 8.8 mg/dL (8.5-10.1); Carbon Dioxide 24.8 mMol/L (20.0-31.0); Chloride 105 mMol/L (98-107); Creatinine (Component) 0.8 mg/dL (0.6-1.3); Estimated Creatinine Clearance 112.4 mL/min (>60); Globulin 2.0 gm/dL (2.3-3.5); Glucose 94 mg/dL (74-106); Magnesium 1.9 mg/dL (1.6-2.6); Osmolality,Calculated 282 (275-295); Phosphorous 2.9 mg/dL (2.4-5.1); Potassium 3.0 mMol/L (3.4-5.1); Sodium 142 mMol/L (136-145); Total Protein 5.6 gm/dL (5.7-8.2); eGFR > 60 See Note
[2025-03-29] MEDS: SODIUM CHLORIDE 0.9% 1000 ML 1,000 ML 75 ML IV (08:11)
[2025-03-29] MEDS: FOLIC ACID INJ 1 MG/0.2 ML IVP ×2 (08:14→21:18)
[2025-03-29] MEDS: THIAMINE INJ 100 MG/ML VIAL 2 ML IVP ×2 (08:14→21:16)
[2025-03-29] MEDS: cefTRIAXone/D5w 1gm IV premix 1 GM/50 ML BAG IV (08:16)
[2025-03-29] MEDS: METOPROLOL TARTRATE 25 MG TABLET PO (08:17)
[2025-03-29] MEDS: MULTIVITAMINS TABLET 1 TAB PO (08:17)
[2025-03-29] MEDS: Magnesium Sulfate 2 GM Ivpb 2 GM/50 ML BAG IV (09:09)
--- NOTE | 2025-03-29 09:50 | PD.RESDS ---
Planned Discharge Date 03/29/25 DS: Providers Provider Date of admission: 03/27/25 15:08 Primary care physician: Trino Chen MD Admitting Provider: Patricia Metz DO Attending Provider on Admission: Patricia Metz DO Consults: 03/28/25 09:30 Consult to Cardiology Stat Comment: +trop, sinus tachy. Alcohol withdrawal,Urine +meth Consulting Provider: Linda Tolentino H Attending Provider on DC: Resident Crystal Discharging Provider: Resident Crystal Hospital Course Hospital Course Hospital course: 29-year-old female with a PMH of depression who was brought in to the ED by ambulance with symptoms of alcohol withdrawal on 03/27/2025. She stated that she had been drinking heavily the past 5 or 6 months, almost daily with a quarter to half bottle of vodka. Her last drink was the morning that she presented, she had half a bottle of vodka. On presentation she reported persistent nausea, emesis, tremor, sweating, anxiety, and restlessness. She also reported shortness of breath and chest discomfort and resolved diarrhea at the time of presentation. She presented with a CIWA of 17 due to her tremors, nausea, tactile paresthesia, and diaphoresis. Her symptoms improved after being given Valium 5 mg twice. She presented with a troponin of 0.049 which up trended to 1.0 and then trended down to 0.6. The patient was admitted for alcohol withdrawal management. ED course: The patient received 2 L of LR, 1 L of normal saline, and 2 doses of 5 mg diazepam. History: Past medical history: depression. Medications: Sertraline Past surgical history: x 1 Social history: 08/11-12 bottle of vodka daily for the past several months, admits to buying a weight loss pill off of the street that she has been taking for a few weeks, denies cigarettes or other drug use. Allergies: No known drug allergies. Cardiology was consulted for management of the patient's tachycardia and elevated troponins. Time Spent with Patient Time attestation: Total time spent providing and/or coordinating discharge services: Exam Vital Signs Temp Pulse Resp BP Pulse Ox O2 Del Method 97.5 F 88 16 119/89 H 98 Room Air 03/29/25 08:00 03/29/25 09:00 03/29/25 09:00 03/29/25 08:17 03/29/25 08:00 03/29/25 08:00 Discharge Plan Prescriptions/Referrals Prescriptions/Med Rec: No Action sertraline 100 mg tablet 100 mg PO Q24H Referrals: Trino Chen MD [Primary Care Provider] - Patient/Caregiver Discharge Instructions Print Language: Tajik
--- NOTE | 2025-03-29 10:06 | ESPR_ITS ---
<Statement entered by Denny Chen MD - 03/30/25 08:42> Patient was examined and case was reviewed with team including attending physician. Note reviewed, I agree with most of its contents and agree with the patient's care. Patient seen today at the bedside found awake, alert, orientedx3. No overnight events reported. Vital signs stable at this time. No active complaints at this time. Currently tapering off librium to q day and possibly discharge in next 24- 48 hours. Denny Chen MD PGY-2 Documentation for date of: 03/29/25 Subjective Subjective Interval history: 03/29/25: CARLITO. VSS.patient was started on metoprolol by cardiology team which improved her tachycardia. Patient states that her palpitations has improved and overall feeling much better. Patient denies any nausea, vomiting, A/V hallucinations, headache, paresthesia or tremor. Patient denies any shortness of breath or chest pain. CIWA of per RN overnight. Exam Vital Signs Temp Pulse Resp BP Pulse Ox O2 Del Method 97.5 F 88 16 119/89 H 98 Room Air 03/29/25 08:00 03/29/25 09:00 03/29/25 09:00 03/29/25 08:17 03/29/25 08:00 03/29/25 08:00 Narrative Exam General: WDWN, in no acute distress Head: NCAT Neck: trachea midline, no thyromegaly Resp: CTAB, no wheezing, in no respiratory distress CV: Tachycardia with regular rhythm, No gallops or murmurs appreciated. +2 radial pulses b/l Ext: no pretibial edema noted, no gross deformity Skin: scattered ecchymosis noted on bilateral upper and lower extremity Neuro: CN 2-12 grossly intact, finger to nose intact. Very minimal tremor of UE when arms extended Psych: A/Ox4, calm affect Objective Labs 03/30/25 05:10 03/30/25 05:10 Labs: Laboratory Results - last 24 hr 03/29/25 05:43 WBC 7.5 RBC 4.10 Hgb 13.3 Hct 41.0 MCV 100 MCH 32.4 MCHC 32.4 RDW Std Deviation 45.5 Plt Count 123 L Neut % (Auto) 70 Lymph % (Auto) 17 Will % (Auto) 10 Eos % (Auto) 2 Baso % (Auto) 0 Neut # (Auto) 5.3 Lymph # (Auto) 1.3 Will # (Auto) 0.7 Eos # (Auto) 0.2 Baso # (Auto) 0.0 Immature Gran # (Auto) 0.04 H Absolute Nucleated RBC 0.00 Immature Gran % 1 H Nucleated RBC % 0 Sodium 142 Potassium 3.0 L D Chloride 105 Carbon Dioxide 24.8 Anion Gap 12 BUN 10 Creatinine 0.8 Estim Creat Clear Calc 112.4 eGFR > 60 BUN/Creatinine Ratio 13 Glucose 94 Calculated Osmolality 282 Calcium 8.5 Corrected Calcium 8.8 Phosphorus 2.9 Magnesium 1.9 Total Bilirubin 0.6 D AST 73 H ALT 38 Alkaline Phosphatase 71 Total Protein 5.6 L Albumin 3.6 D Globulin 2.0 L Albumin/Globulin Ratio 1.8 Quality Measures Quality Measures none Assessment & Plan Assessment Current Active Medications: Generic Name Dose Route Start Last Admin Trade Name Freq PRN Reason Stop Dose Admin Acetaminophen 650 mg 03/27/25 16:15 Acetaminophen 325 Mg Tablet PO 04/26/25 16:14 Q4HR PRN Fever >101, pain 1-3 Chlordiazepoxide HCl 25 mg 03/29/25 21:00 Chlordiazepoxide Hcl 25 Mg Capsule PO 03/30/25 20:59 BID YONG Diazepam 2.5 mg 03/27/25 15:32 03/27/25 17:43 Diazepam Inj 5 Mg/Ml Vial 2 Ml IVP 04/01/25 15:31 2.5 mg Q2HR PRN Administration CIWA SCORE 8-13 Diazepam 5 mg 03/27/25 15:33 03/28/25 14:30 Diazepam Inj 5 Mg/Ml Vial 2 Ml IVP 04/01/25 15:32 5 mg Q2HR PRN Administration CIWA SCORE 14-19 Diazepam 10 mg 03/27/25 15:33 Diazepam Inj 5 Mg/Ml Vial 2 Ml IVP 04/01/25 15:32 Q2HR PRN CIWA SCORE 20-25 Folic Acid 1 mg 03/27/25 21:00 03/29/25 08:14 Folic Acid Inj 1 Mg/0.2 Ml IVP 04/26/25 20:59 1 mg BID YONG Administration Lorazepam 0.5 mg 03/27/25 15:32 03/28/25 09:16 Lorazepam 0.5 Mg Tablet PO 04/01/25 15:31 0.5 mg Q4HR PRN Administration CIWA Score 2-7 Metoprolol Tartrate 25 mg 03/28/25 21:00 03/29/25 08:17 Metoprolol Tartrate 25 Mg Tablet PO 04/27/25 20:59 25 mg BID YONG Administration Multivitamins 1 tab 03/27/25 15:45 03/29/25 08:17 Multivitamins Tablet PO 04/26/25 15:44 1 tab QDAY YONG Administration Nitrofurantoin Macrocrystals 100 mg 03/29/25 21:00 Nitrofurantoin Macro 100 Mg Capsule PO 04/05/25 20:59 BID YONG Pantoprazole Sodium 40 mg 03/28/25 09:00 03/29/25 08:15 Pantoprazole Inj 40 Mg Vial IVP 04/27/25 08:59 40 mg QDAY YONG Administration Sertraline HCl 100 mg 03/28/25 16:45 03/28/25 17:24 Sertraline Hcl 25 Mg Tablet PO 04/27/25 16:44 100 mg Q24H YONG Administration Thiamine HCl 100 mg 03/27/25 21:00 03/29/25 08:14 Thiamine Inj 100 Mg/Ml Vial 2 Ml IVP 04/26/25 20:59 100 mg BID YONG Administration Plan 29F with PMH of depression BIB EMS for alcohol withdrawal. Patient has been drinking heavily since 5-6 month ago. Frequency: almost daily (1/4-1/2 bottle of Vodka). Last drink on 03/27 at 1000 (1/2 bottle of Vodka). Patient reported persistent nausea, emesis, tremor, sweating, anxiety, restlessness and presthesia x 1-2months. Denies AH/VH. Reports severe occipital headache and some vision changes, SOB and chest discomfort. Denied any hematemesis, hematuria, dysuria or hematuria. ED course: Received 2L of LR, 1L of NS, and 2x 5mg Diazepam #Alcohol withdrawal (Improved) #Alcohol use disorder #Lactate acidosis with anion gap (Resolved) Typically drinks 1/2-1/4 bottle of vodka almost daily x5-6 months. Last drink a few hours prior to admission (1/2 bottle of Vodka) 03/27 Diaphoretic and tachycardia of 113 on admission. lactate of 7.6 (Improved to 2.0) with anion gap of 21 which improved to 11. UDS +amphetamines. Patient reports taking phen-phen (Fenfluramine/phentermine) for weight loss. CIWA of 17 on admission (tremor, N/V, tactile paresthesia, diaphoresis, anxiety, agitation, headache) after given x2 Diazepam 5mg. Patient's CIWA is zero today. Symptoms on admission resolved completely. Patient received diazepam 5mg x1 and Ativan 0.5x1 yesterday. Plan: - CIWA protocol with diazepam - Decrease Librium to 25 PO BID. Wel will taper to 25qday tomorrow. - Continue Thiamine IV 100 BID - Continue Folate 1mg BID - Multivitamins PO qday if tolerates PO - Seizure precautions - Discontinue IVF - Will consider Phenobarbital if withdrawal worsens #Chest pain (Improved) #NSTEMI Type 2 Patient reports chest discomfort and shortness of breath. Saturating at 99% on RA with unremarkable physical exam. NSTEMI type 2 most likely not ischemic in nature but stress related due to tachycardia. Of note, UDS +amphetamines. Patient reports taking phen-phen (Fenfluramine/phentermine) for weight loss which may have played a role here as well. Initial trop: 0.049 --> 1.566 -->1.066 --> 0.628 EKG shows sinus tachycardia with QTc of 497 (improved to 451) with no ST elevation Cardiology Dr. Tolentino was consulted who recommended below plan. Plan: - Pending TTE - Start metoprolol tartrate 25 mg twice daily - Patient was advised by cardiology team to stop her weight loss pill phen-phen (Fenfluramine/phentermine) - Stop reglan given prolonged QTc while being on sertraline #UTI Patient denies any dysuria or hematuria. UA positive for Nitrites, blood, ketones and proteins. Negative for bacteria and Leukocyte esterase. Suprapubic tenderness noted on exam. Urine culture positive for E-coli pansensitive. Plan: - Stop Rocephin 1g qday - Start Macrobid PO 100 BID #Alcohol hepatitis (Improved) Chronic, per patient. AST 152, ALT 77 on admission which down-trended to 73 and 38 respectively. Plan: - CTM # Depression Managed with sertraline Plan: -Continue home sertraline once med rec is complete Health Maintenance: Disposition: Admit to Tele Feeding: Regular diet Thromboprophylaxis: SCDs GI prophylaxis: Protonix Code Status: Full code Plan discussed with senior residen Dr. Cross and attending physician Dr. Isaías Joseph DO PGY-1 Attending Provider Attestation/Addendum Patricia Nolan DO, attest that I was physically present for the ferrera portions of the service and evaluated the patient with the resident and I reviewed and discussed the case with the resident and agree with the resident's findings and plans of care as documented above Patient seen and evaluated this AM. CIWA score of 1 and continues to require valium overnight. Tapering librium. Pending echocardiogram, which can likely be done outpatient with cardiac f/u. Anticipate DC within next 24h if patient remains stable. Will start on macrobid as per urine c/s as patient had presented with suprapubic tenderness.
[2025-03-29] MEDS: DIAZEPAM INJ 5 MG/ML VIAL 2 ML 2.5 MG IVP ×2 (13:14→17:49)
--- NOTE | 2025-03-29 15:26 | PC.SS ---
Rounding: Pending ECHO, TEODORO plan home
[2025-03-29] MEDS: SERTRALINE HCL 25 MG TABLET 100 MG PO (16:06)
--- NOTE | 2025-03-29 16:37 | ESPR_ITS ---
<Statement entered by Linda Tolentino MD - 03/31/25 16:28> I personally examined the patient evaluate the patient with resident physician also did bedside echo patient is doing quite well now she did take possible [id number] phentermine medication with tachycardia and mild troponin elevation which is improved not have any chest pain A bedside echo showed normal left and wall motion ejection fraction more than 60% no evidence of cardiomyopathy peripartum cardiomyopathy ruled out. Based on clinical exam she is stable to be discharged home recommend to see primary care physician also avoid using any diet pills phentermine or Celebrex.I evaluated patient with resident physician PGY [address] Dr. Hector Hardin agrees with treatment plan and I agree with the treatment plan recommendations. Documentation for date of: 03/29/25 Subjective Subjective Interval history: No overnight events. Patient's heart rate has improved into the 100-110s after starting metoprolol. Patient states that she is feeling much better and is less anxious and slept better. She denies any chest pain or shortness of breath. Exam Vital Signs Temp Pulse Resp BP Pulse Ox O2 Del Method 97.3 F 104 H 15 108/84 95 Room Air 03/29/25 12:00 03/29/25 12:00 03/29/25 12:00 03/29/25 12:00 03/29/25 12:00 03/29/25 12:00 Narrative Exam General: Young woman awake and in no acute distress. Conversational and non- toxic appearing. Neurologic: GCS 15. Alert and oriented x3, no gross neurological deficit, and patient able to move all 4 extremities. HEENT: Normocephalic, atraumatic, mucous membranes moist. Pupils reactive to light. Heart: Tachycardic, normal rhythm, normal S1 and S2, no murmurs. Lungs: Clear to auscultation bilaterally with no wheezing or crackles. Abdomen: Obese, soft, nondistended, nontender, positive bowel sounds. No guarding or rebound tenderness. Extremities: No edema. 2+ radial and dorsalis pedis pulses bilaterally. Skin: Warm. Dry. No rash or ecchymoses. Objective Labs 03/29/25 05:43 03/29/25 05:43 Labs: Laboratory Results - last 24 hr 03/29/25 05:43 WBC 7.5 RBC 4.10 Hgb 13.3 Hct 41.0 MCV 100 MCH 32.4 MCHC 32.4 RDW Std Deviation 45.5 Plt Count 123 L Neut % (Auto) 70 Lymph % (Auto) 17 Moore % (Auto) 10 Eos % (Auto) 2 Baso % (Auto) 0 Neut # (Auto) 5.3 Lymph # (Auto) 1.3 Moore # (Auto) 0.7 Eos # (Auto) 0.2 Baso # (Auto) 0.0 Immature Gran # (Auto) 0.04 H Absolute Nucleated RBC 0.00 Immature Gran % 1 H Nucleated RBC % 0 Sodium 142 Potassium 3.0 L D Chloride 105 Carbon Dioxide 24.8 Anion Gap 12 BUN 10 Creatinine 0.8 Estim Creat Clear Calc 112.4 eGFR > 60 BUN/Creatinine Ratio 13 Glucose 94 Calculated Osmolality 282 Calcium 8.5 Corrected Calcium 8.8 Phosphorus 2.9 Magnesium 1.9 Total Bilirubin 0.6 D AST 73 H ALT 38 Alkaline Phosphatase 71 Total Protein 5.6 L Albumin 3.6 D Globulin 2.0 L Albumin/Globulin Ratio 1.8 Quality Measures Quality Measures none Assessment & Plan Assessment Current Active Medications: Generic Name Dose Route Start Last Admin Trade Name Freq PRN Reason Stop Dose Admin Acetaminophen 650 mg 03/27/25 16:15 Acetaminophen 325 Mg Tablet PO 04/26/25 16:14 Q4HR PRN Fever >101, pain 1-3 Chlordiazepoxide HCl 25 mg 03/29/25 21:00 Chlordiazepoxide Hcl 25 Mg Capsule PO 03/30/25 20:59 BID YONG Diazepam 2.5 mg 03/27/25 15:32 03/29/25 13:14 Diazepam Inj 5 Mg/Ml Vial 2 Ml IVP 04/01/25 15:31 2.5 mg Q2HR PRN Administration CIWA SCORE 8-13 Diazepam 5 mg 03/27/25 15:33 03/28/25 14:30 Diazepam Inj 5 Mg/Ml Vial 2 Ml IVP 04/01/25 15:32 5 mg Q2HR PRN Administration CIWA SCORE 14-19 Diazepam 10 mg 03/27/25 15:33 Diazepam Inj 5 Mg/Ml Vial 2 Ml IVP 04/01/25 15:32 Q2HR PRN CIWA SCORE 20-25 Folic Acid 1 mg 03/27/25 21:00 03/29/25 08:14 Folic Acid Inj 1 Mg/0.2 Ml IVP 04/26/25 20:59 1 mg BID YONG Administration Lorazepam 0.5 mg 03/27/25 15:32 03/28/25 09:16 Lorazepam 0.5 Mg Tablet PO 04/01/25 15:31 0.5 mg Q4HR PRN Administration CIWA Score 2-7 Metoprolol Tartrate 25 mg 03/28/25 21:00 03/29/25 08:17 Metoprolol Tartrate 25 Mg Tablet PO 04/27/25 20:59 25 mg BID YONG Administration Multivitamins 1 tab 03/27/25 15:45 03/29/25 08:17 Multivitamins Tablet PO 04/26/25 15:44 1 tab QDAY YONG Administration Nitrofurantoin Macrocrystals 100 mg 03/29/25 21:00 Nitrofurantoin Macro 100 Mg Capsule PO 04/05/25 20:59 BID YONG Pantoprazole Sodium 40 mg 03/28/25 09:00 03/29/25 08:15 Pantoprazole Inj 40 Mg Vial IVP 04/27/25 08:59 40 mg QDAY YONG Administration Sertraline HCl 100 mg 03/28/25 16:45 03/29/25 16:06 Sertraline Hcl 25 Mg Tablet PO 04/27/25 16:44 100 mg Q24H YONG Administration Thiamine HCl 100 mg 03/27/25 21:00 03/29/25 08:14 Thiamine Inj 100 Mg/Ml Vial 2 Ml IVP 04/26/25 20:59 100 mg BID YONG Administration Plan 29-year-old female with a PMH of depression who was brought in to the ED by ambulance with symptoms of alcohol withdrawal on 03/27/2025. She presented with a troponin of 0.049 which up trended to 1.0 and then trended down to 0.6. The patient was admitted for alcohol withdrawal management. The patient is tachycardic with a rate in the 120s upon cardiac consultation. Cardiology was consulted for management of the patient's elevated troponins and tachycardia. #Troponin elevation #Chest pain #Sinus tachycardia * The patient presented with a troponin of 0.049 which trended upwards to 1.0 and trended back downwards to 0.6, no new troponin readings or EKG on 03/29/2025 * The patient's rate is between 100 and 110 * Consider that the patient is undergoing alcohol withdrawal, has a history of anxiety, and is taking an unknown substance for weight loss that may be a stimulant in the presence of her sinus tachycardia * The patient's elevated troponins are likely not ischemic in nature but stress related due to tachycardia * The patient's urinalysis is positive for amphetamines, which may reinforce the notion that her weight loss pill may be a stimulant which can contribute to sinus tachycardia * Cardiology team performed a bedside ultrasound on 03/29/2025, the patient's ejection fraction was normal, she had normal atria and ventricular sizes, normal wall motion, and no pericardial effusion Plan: * Continue metoprolol tartrate 25 mg twice daily, okay to discharge on this dose * Patient still encouraged to stop taking her unknown weight loss pill * Continue home sertraline for her anxiety #Alcohol withdrawal #Alcohol use disorder #Lactic acidosis with anion gap #Cystitis #Alcoholic hepatitis # depression The rest of the patient's hospital problems will be managed per the primary team. Patient was seen and discussed with my attending physician Dr. Tolentino. Hector Hardin DO PGY-1.
[2025-03-29] MEDS: NITROFURANTOIN MACRO 100 MG CAPSULE PO (21:16)
[2025-03-30] VITALS (7 sets, daily range): BP systolic 101–126; BP diastolic 62–92; PULSE 87–106; RESP 16–96; TEMP 35.9–37.1; O2SAT 93–98; BMI 29.9
[2025-03-30 06:06] LABS: Basophils # (Auto) 0.1 Thou/mm3 (0.0-0.2); Basophils % (Auto) 1 % (0-2.5); Eosinophils # (Auto) 0.2 Thou/mm3 (0.0-0.5); Eosinophils % (Auto) 2 % (0-10); Hematocrit 37.5 % (36.0-46.0); Hemoglobin 12.1 g/dL (12.0-16.0); Immature Granulocytes Auto 0.04 Thou/mm3 (0.00-0.00); Lymphocytes # (Auto) 1.0 Thou/mm3 (1.0-4.8); Lymphocytes % (Auto) 14 % (10-50); Mean Corpuscular HGB Conc 32.3 g/dl (31.0-37.0); Mean Corpuscular Hemoglobin 32.4 pg (25.0-35.0); Mean Corpuscular Volume 100 fL (80-100); Monocytes # (Auto) 0.6 Thou/mm3 (0.0-0.8); Monocytes % (Auto) 8 % (0-12); Neutrophils # (Auto) 5.4 Thou/mm3 (1.8-7.7); Neutrophils % (Auto) 74 % (37-80); Nucleated Red Blood Cell # 0.00 Thou/mm3 (0.00-0.00); Nucleated Red Blood Cell % 0 /100 WBC (0); Platelet Count 132 Thou/mm3 (140-440); RDW Standard Deviation 45.1 fL (36.4-46.3); Red Blood Count 3.74 Miln/mm3 (4.00-5.20); White Blood Count 7.4 Thou/mm3 (3.6-11.0)
[2025-03-30 06:29] LABS: Alanine Aminotransferase 48 U/L (10-49); Albumin, Serum 3.6 gm/dL (3.5-5.0); Albumin/Globulin Ratio 1.7 (1.2-2.2); Alkaline Phosphatase 63 U/L (46-116); Anion Gap 12 (7-16); Aspartate Amino Transferase 80 U/L (0-34); BUN/Creatinine Ratio 13 Ratio (12-20); Bilirubin,Total 0.4 mg/dL (0.3-1.2); Blood Urea Nitrogen 9 mg/dL (9-23); Calcium 8.4 mg/dL (8.3-10.6); Calcium (Corrected) 8.7 mg/dL (8.5-10.1); Carbon Dioxide 22.9 mMol/L (20.0-31.0); Chloride 109 mMol/L (98-107); Creatinine (Component) 0.7 mg/dL (0.6-1.3); Estimated Creatinine Clearance 128.5 mL/min (>60); Globulin 2.1 gm/dL (2.3-3.5); Glucose 100 mg/dL (74-106); Magnesium 2.0 mg/dL (1.6-2.6); Osmolality,Calculated 285 (275-295); Phosphorous 3.4 mg/dL (2.4-5.1); Potassium 3.5 mMol/L (3.4-5.1); Sodium 144 mMol/L (136-145); Total Protein 5.7 gm/dL (5.7-8.2); eGFR > 60 See Note
--- NOTE | 2025-03-30 08:27 | ESDS_ITS ---
Planned Discharge Date 03/30/25 DS: Providers Provider Date of admission: 03/27/25 15:08 Primary care physician: Trino Chen MD Admitting Provider: Patricia Metz DO Attending Provider on Admission: Patricia Metz DO Consults: 03/28/25 09:30 Consult to Cardiology Stat Comment: +trop, sinus tachy. Alcohol withdrawal,Urine +meth Consulting Provider: Linda Tolentino Attending Provider on DC: Dr. Dodd Discharging Provider: Resident Crystal Anticipated date of discharge: 03/30/25 DS: Diagnosis Problem List Completed Was Problem List Reviewed/Reconciled?: Yes Hospital Course Hospital Course Hospital course: This is a 29F with PMH of depression on Sertraline BIB EMS for alcohol withdrawal. Patient has been drinking heavily since 5-6 month ago. Frequency: almost daily (1/4-1/2 bottle of Vodka). Last drink on 03/27 at 1000 (1/2 bottle of Vodka). Patient reported persistent nausea, emesis, tremor, sweating, anxiety, restlessness and paresthesia x 1-2months. Denied AH/VH. Reportd severe occipital headache and some vision changes, SOB and chest discomfort. Denied any hematemesis, hematuria, dysuria or hematuria. In the ED patient received 2L of LR, 1L of NS, and 2x 5mg Diazepam. Patient was noted to be diaphoretic and tachycardia of 113 on admission. lactate of 7.6 (larter improved to 2.0) with anion gap of 21 which later resolved to 11. UDS was noted to be +amphetamines. Patient reported taking phen-phen (Fenfluramine/phentermine) for weight loss. CIWA of 17 on admission (tremor, N/V, tactile paresthesia, diaphoresis, anxiety, agitation, headache). Patient was admitted for alcohol withdrawal and started on CIWA protocol and scheduled Librium initially at 50 TID which was tapered down to 25 BID. Patient also received Thiamine, Folate and multivitamins as well. Patient's overall condition significantly improved and her CIWA is a zero at this time. On the day of discharge patient denies any nausea, vomiting, tremor, tactile/A/V hallucinations, headache, anxiety, chest pain, dyspnea, dysuria. In addition, Patient was noted to have elevated Troponin of 0.049 on admission which up trended to 1.566 later and down trended to 0.628. EKG showed sinus tachycardia with QTc of 497 which on the follow up EKG normalized, and no ST segment elevation. Patient initially complained of dyspnea and chest discomfort which was resolved a few hours after admission. Cardiology, Dr. Tolentino, was consulted who believed NSTEMI type 2 most likely not ischemic in nature but stress related due to tachycardia and also contribution from ther weight loss medication that she had been taking (Fenfluramine/phentermine). Bedside Echo by cardiology team unremarkable. As recommended by cardiology, patient was started on Metoprolol 25 BID which improved patient's symptoms. Patient will be discharged with prescription for metoprolol 25 BID and should follow up with Cardiology clinic outpatient within 1 week of discharge. Antiemetic medications were held due to concern for QTc prolongation given the fact that patient was already on Sertraline. Patient should stop taking her weight loss pills as well. Patient's UA on admission was positive for Nitrites, blood, ketones and proteins. Negative for bacteria and Leukocyte esterase. Culture positive for Ecoli. Patient however reported no dysuria however suprapubic tenderness to palpation was noted one exam. Patient was started on Rocephin empirically which was switched to macrobid after urine sensitivity was back. Patient will be discharged with PO Macrobid 100 BID. Patient was noted to have elevated transaminitis most likely secondary to alcoholic hepatitis with AST 152, ALT 77 on admission which down-trended to 80 and 48 respectively. All other patient's medical problems were managed throughout her hospitalizations. Overall patient remained afebrile and hemodynamically stable. Patient is in stable condition for discharge. All questions answered. ED return precautions given. #Alcohol withdrawal (Improved) #Alcohol use disorder #Lactate acidosis with anion gap (Resolved) #Chest pain (Improved) #NSTEMI Type 2 #UTI #Alcohol hepatitis (Improved) # Depression Continue home medications as prescribed. Stop taking unknown weight loss medication, discuss with you PCP weight loss options. Abstain from alcohol. Start taking metoprolol 25 mg twice daily. Take nitrofurantoin 100 mg twice daily for 4 more days. Follow up with PCP and cardiology within 2 week. Should your symptoms recur or worsen patient is instructed to return to the ED. Plan discussed with senior residen Dr. Nesbitt and attending physician Dr. Dodd. Yokasta Joseph, DO PGY-1 Status at Discharge Functional status at discharge: independent ambulation Overall status at discharge: patient is back to baseline Time Spent with Patient Time attestation: Total time spent providing and/or coordinating discharge services: Time spent: Greater than 30 minutes Exam Vital Signs Temp Pulse Resp BP Pulse Ox O2 Del Method 98.6 F 101 H 16 101/62 95 Room Air 03/30/25 04:00 03/30/25 04:00 03/30/25 04:00 03/30/25 04:00 03/30/25 04:00 03/30/25 04:00 Narrative Exam General: WDWN, in no acute distress Head: NCAT Neck: trachea midline, no thyromegaly Resp: CTAB, no wheezing, in no respiratory distress CV: Tachycardia with regular rhythm, No gallops or murmurs appreciated. +2 radial pulses b/l Ext: no pretibial edema noted, no gross deformity Skin: scattered ecchymosis noted on bilateral upper and lower extremity Neuro: CN 2-12 grossly intact, finger to nose intact. Very minimal tremor of UE when arms extended Psych: A/Ox4, calm affect Discharge Plan Plan Patient Disposition: HOME (Self Care) Patient condition on transfer: Stable Care Plan Goals: Continue home medications as prescribed. Stop taking unknown weight loss medication, discuss with you PCP weight loss options. Abstain from alcohol. Start taking metoprolol 25 mg twice daily. Take nitrofurantoin 100 mg twice daily for 4 more days. Follow up with PCP and cardiology within 2 week. Should your symptoms recur or worsen patient is instructed to return to the ED. Prescriptions/Referrals Prescriptions/Med Rec: New metoprolol tartrate 25 mg tablet 25 mg PO BID Qty: 60 1RF nitrofurantoin 50 mg/5 mL suspension 100 mg PO BID 4 Days Qty: 80 0RF Rx Instructions: must administer with a meal/food Continued sertraline 100 mg tablet 100 mg PO Q24H Referrals: Trino Chen MD [Primary Care Provider] - Linda Tolentino MD [Physician] - Patient/Caregiver Discharge Instructions Education Materials: Alcohol Withdrawal: What to Expect Print Language: Telugu Stand Alone Forms: Haylie Award Info., Patient Portal Info Letter, Work/Release Restrictions Discharge Order Discharge Orders: Discharge (Routine); Ordered 03/30/25 Ordered By: Noah Nesbitt Quality Discharge Quality Measures VTE prophylaxis Attestestation Attestation I Odilia Dodd MD reviewed the note and agree with the resident's assessment & plan with modifications/additions/exceptions as below. I have personally reviewed labs, imaging, home meds/prior records, examined the patient, formulated and discussed management plan with the IM team. A 29-year-old female with history of depression admitted for alcohol withdrawal seizure and UTI. Patient is anxious however remained hemodynamically stable, troponin mildly elevated, cardiology is on board however cleared for discharge. UDS positive for methamphetamine however patient is taking phentermine for weight loss. She is also noted to have prolonged QTc however on repeat EKG QTc was normal. Started on low-dose beta-blockers extensively counseled regarding EtOH use and avoidance of phentermine for weight loss, recommended to follow-up with cardiology within 4 weeks for further evaluation and management. Will defer to PCP for weight loss management.
[2025-03-30] MEDS: MULTIVITAMINS TABLET 1 TAB PO (08:49)
[2025-03-30] MEDS: METOPROLOL TARTRATE 25 MG TABLET PO (08:50)
[2025-03-30] MEDS: NITROFURANTOIN MACRO 100 MG CAPSULE PO (08:50)
[2025-03-30] MEDS: FOLIC ACID INJ 1 MG/0.2 ML IVP (08:51)
[2025-03-30] MEDS: THIAMINE INJ 100 MG/ML VIAL 2 ML IVP (08:51)
--- NOTE | 2025-03-30 11:07 | PC.SS ---
1000-ASW met with pt face to face, inquiring about d/c planning. Pt states she has no needs and states she was told by the residents that she will d/c today. Pt reports she has family transportation.
--- NOTE | 2025-04-24 09:30 | PC.CC ---
[id number]-CLARA Patel received a call from Che Bourne W/CWSIII [phone] asking for follow-up questions regarding this pt. Bee Bourne asked if pt had her children present in the ED and asked when pt was d/c. Bee Bourne initially asked to speak to Naomie Cruz LCSW, but she was not available so CLARA Patel provided the worker with the RP f/u information.
== END 2025-03-30 14:44 | disposition home or self-care (01) | DRG 775 ==
LOC: SERX 14:22 → SERHOLD 15:10 → S2NX 17:10
PROVIDERS: Physician Assistant Medical; Admitting Provider Internal Medicine; PCP Family Medicine; Visit Provider Internal Medicine
DX: F10.139 Alcohol abuse with withdrawal, unspecified (principal); E87.20 Acidosis, unspecified; R07.89 Other chest pain; N30.90 Cystitis, unspecified without hematuria; K70.10 Alcoholic hepatitis without ascites; F53.0 Postpartum depression; F41.9 Anxiety disorder, unspecified; Z79.899 Other long term (current) drug therapy
CPT/HCPCS: 36415; 80048; 80053; 80061; 80307; 80320; 81001; 83605; 83690; 83735; 84100; 84484; 84703; 85025; 87077; 87086; 87186; 93005; 96361; 96374; 96375; 96376; 99284; J0696; J2470; J2765; J3360; J3411; J3475; J3490; J7030; J7120; A9270; G0480

== ENCOUNTER 2025-06-08 23:21 | Inpatient (IN) | payer MEDICAID, SELFPAY ==
[2025-06-08 23:22] VITALS: BMI 29.0
[2025-06-08 23:34] VITALS: BP 145/95; PULSE 118; RESP 20; TEMP 36.8; O2SAT 96
--- NOTE | 2025-06-08 23:34 | EDNOTE_ITS ---
ED Alcohol RME/HPI General Chief Complaint: Alcohol Stated Complaint: ALCOHOL WITHDRAWAL Time Seen by Provider: 06/08/25 23:46 Source: patient Arrival date/time: 06/08/25 23:21 RME / HPI MD complaint: alcohol intoxication, alcohol withdrawal, alcohol dependence and desires rehab Chronic alcohol use: Yes Previous visits for alcohol intoxication: Yes Recent trauma: No RME / HPI narrative: See [facility] for Dr. Frankel's HPI Documentation. Related Data Home Medications ?Medication ?Instructions ?Recorded ?Confirmed sertraline 100 mg tablet 100 mg PO Q24H 03/27/2503/09 Previous Rx's ?Medication ?Instructions ?Recorded metoprolol tartrate 25 mg tablet 25 mg PO BID #60 tabs 03/30/25 Allergies Allergy/AdvReac Type Severity Reaction Status Date / Time No Known Allergies Allergy Verified 06/08/25 23:26 Review of Systems Review of Systems Systems Reviewed: All systems reviewed, normal except as documented Past Medical History Past Medical History NEUROLOGIC: Positive Seizures REPRODUCTIVE: Positive Previous Pregnancies (x2) HEMATOLOGIC: Positive Blood Disorders and Anemia PSYCHO/SOCIAL: Positive Depression and Anxiety OTHER HISTORY: Positive Hospitalization (Child ) Surgical History SURGICAL: Positive Section ED Exam Narrative Physical exam: See [facility] for Dr. Frankel's Physical Exam Documentation. Course Quality Measures none Orders Category Date Time Status COVID-19 Screening Questionnaire NOW Care 06/09/25 02:28 Active EKG (ED ONLY) *Do not use* NOW Care 06/08/25 23:35 Completed Saline [Insert IV] NOW Care 06/08/25 23:34 Active EKG (ED Only) Stat Exams 06/08/25 23:35 Draft XR chest 1V portable Stat Exams 06/08/25 23:35 Taken Acetaminophen Stat Lab 06/08/25 23:56 Completed Alcohol, Blood Medical Stat Lab 06/08/25 23:56 Completed Ammonia Stat Lab 06/08/25 23:56 Completed Amylase Stat Lab 06/08/25 23:56 Completed BNP [B-Type Natriuretic Peptide] Stat Lab 06/08/25 23:56 Completed Beta Hydroxybutyrate Stat Lab 06/08/25 23:56 Completed Bilirubin,Direct Stat Lab 06/08/25 23:56 Completed CBC Stat Lab 06/08/25 23:56 Completed CMP [Comprehensive Metabolic Panel] Stat Lab 06/08/25 23:56 Completed Drug Screen,Urine Stat Lab 06/09/25 00:29 Completed HCG,Qualitative Serum Stat Lab 06/08/25 23:56 Completed Lipase Stat Lab 06/08/25 23:56 Completed Magnesium Stat Lab 06/08/25 23:56 Completed PT [Prothrombin Time with INR] Stat Lab 06/08/25 23:56 Completed PTT [Partial Thromboplastin Time] Stat Lab 06/08/25 23:56 Completed Phosphorous Stat Lab 06/08/25 23:56 Completed TSH [Thyroid Stimulating Hormone] Stat Lab 06/08/25 23:56 Completed Troponin I Stat Lab 06/08/25 23:56 Completed UA, C/S IF [Urinalysis, C/S if Indicated] Stat Lab 06/09/25 00:29 Completed Urine Culture Stat Lab 06/09/25 00:29 Received VBG [Venous Blood Gas] Stat Lab 06/08/25 23:36 Completed Diazepam [Valium] Med 06/09/25 02:39 Discontinued 5 mg PO X1 ONE LORazepam [Ativan Inj] Med 06/08/25 23:34 Discontinued 2 mg IVP X1 ONE Ondansetron Inj [Zofran Inj] Med 06/08/25 23:34 Discontinued 4 mg IVP X1 ONE PHENobarbital Inj 130 mg Med 06/09/25 02:37 Discontinued Sodium Chloride 0.9% Flush [NS Flush] 12 ml IVP X1 Ringers Lactated 1000 ml [Lactated Ringers] 1,000 ml Med 06/08/25 23:34 Discontinued IV 1,000 mls/hr Thiamine Inj [Vitamin B-1 Inj] Med 06/08/25 23:34 Discontinued 100 mg IVP X1 ONE Thiamine Inj [Vitamin B-1 Inj] Med 06/09/25 02:38 Discontinued 500 mg IVP X1 ONE cefTRIAXone/D5w 1gm IV premix [Rocephin/D5w 1gm IV Med 06/09/25 01:45 Discontinued premix] 1 gm in 50 ml IV X1 Vital Signs Vital signs: Vital Signs Temperature 98.3 F 06/08/25 23:34 Pulse Rate 118 H 06/08/25 23:34 Respiratory Rate 20 06/08/25 23:34 Blood Pressure 145/95 H 06/08/25 23:34 Pulse Oximetry (%) 96 06/08/25 23:34 Oxygen Delivery Method Room Air 06/08/25 23:34 Discharge Plan Plan Patient Disposition: Admit Acute Care w/in Hospital Problem List Clinical Impression: Alcohol withdrawal, UTI (urinary tract infection) Alcohol MDM Narrative MDM Narrative: This section includes all my notes and documentations, including HPI, PE, and ED course. Danis Frankel MD HPI: 30 y/o female with Hx of Alcohol Withdrawal and Seizures presents with possible alcohol withdrawal. Normally, she drink 2 bottles of hard liquor daily. In the past few days, she has been decreasing to try to quit. She reports headache, severe anxiety, sweating, upset stomach, palpitations, severe shaking, feeling confused, and feeling visual and tactile hallucinations. No other complaints. ROS: All negative except as documented in HPI. Physical Exam: General:? Alert and oriented.? Severe tremors noted. Eyes:? Conjunctivae and lids clear.? EOMI.? PERRL. ENT:? No signs of head trauma. Neck:? Supple.? No tenderness. Heart: Tachycardia with regular rhythm noted. Lungs:? No respiratory distress.? Good air movement.? No rhonchi, wheezing, rales.? Abdomen:? Soft and nontender.? Normal bowel sounds.? No distension.? No rebound or guarding.? Back:? No tenderness.? Skin:? Warm and dry.? Neuro:? Alert and oriented X 3.? Cranial Nerves II-XII grossly intact.? No peripheral motor deficits. Musculoskeletal:? All major joints and bones are not tender with no limited ROM. I reviewed all diagnostic test results: My interpretation of the EKG is sinus tachycardia with no acute ST?T changes. My interpretation of the chest x-ray is: NAD. Blood tests and urine tests remarkable for serum alcohol 299.1 and UTI. At this point, diagnoses include: Alcohol Withdrawal UTI Treatment here included: IVF Ativan 2mg IV Zofran 4 mg IV Thiamine 100 mg IV Rocephin 1 G IV Some improvement noted. 01:33 - I discussed the case with our resident physician for hospitalist. About the presentation and exam and diagnostics and treatments here. And need of further care in the hospital. Will accept the patient. Danis Frankel MD Patient data External records reviewed:: [facility] previous records (Reviewed prior ED records from 03/27/25. Patient was seen for Alcohol withdrawal.) Clinical information provided by:: patient Social determinants that could affect healthcare access:: alcohol use Patient has the following chronic illnesses:: Seizures How is presenting disease/condition affected by chronic disease/condition?: exacerbated by Evaluation data The following diagnostics were reviewed and interpreted by me:: lab results, radiology exam(s) and EKG tracing(s) Lab and/or radiology exams considered but not ordered:: None Interpretation Summary: I reviewed all diagnostic test results: My interpretation of the EKG is sinus tachycardia with no acute ST?T changes. My interpretation of the chest x-ray is: NAD. Blood tests and urine tests remarkable for serum alcohol 299.1 and UTI. Medications / Prescriptions Medications or Prescriptions considered but not ordered:: None Medication administrations:: Medication Administration History Acetaminophen (Acetaminophen 325 Mg Tablet) 650 mg PO Q6H PRN PRN Reason: PAIN SCALE 1-3 (mild Stop: 07/09/25 02:45 Folic Acid (Folic Acid 1 Mg Tablet) 1 mg PO BID YONG Stop: 06/14/25 08:59 Lactated Ringer's (Lactated Ringers) 1,000 mls @ 75 mls/hr IV .[id number] YONG Stop: 06/09/25 16:19 Last Admin: 06/09/25 03:13 Dose: 75 mls/hr Documented By: CVL Magnesium Sulfate (Magnesium Sulfate Ivpb) 4 gm in 50 mls @ 12.5 mls/hr IV X1 ONE Stop: 06/09/25 06:45 Last Admin: 06/09/25 03:15 Dose: 12.5 mls/hr Documented By: CVL Lactated Ringer's (Lactated Ringers) 1,000 mls @ 999 mls/hr IV .Q1H1M ONE Stop: 06/09/25 04:12 Last Admin: 06/09/25 03:31 Dose: 999 mls/hr Documented By: CVL Trimethoprim/Sulfamethoxazole (10 ml/ Dextrose) 260 mls @ 167 mls/hr IV BID YONG Stop: 06/16/25 14:59 Lorazepam (Lorazepam 0.5 Mg Tablet) 0.5 mg PO Q4HR PRN PRN Reason: CIWA Score 2-6 Stop: 06/14/25 02:50 Lorazepam (Lorazepam 0.5 Mg Tablet) 1 mg PO Q4HR PRN PRN Reason: CIWA SCORE 7-11 Stop: 06/14/25 02:50 Lorazepam (Lorazepam 0.5 Mg Tablet) 2 mg PO Q4HR PRN PRN Reason: CIWA SCORE 12-15 Stop: 06/14/25 02:50 Lorazepam (Lorazepam 2 Mg/Ml Vial) 2 mg IVP Q2HR PRN PRN Reason: CIWA >16 Stop: 06/14/25 03:59 Ondansetron HCl (Ondansetron Inj 2 Mg/Ml Inj 2 Ml) 4 mg IVP Q6H PRN; Protocol PRN Reason: NAUSEA OR VOMITING Stop: 07/09/25 02:45 Sertraline HCl (Sertraline Hcl 25 Mg Tablet) 100 mg PO QDAY [facility] Stop: 07/09/25 08:59 Thiamine HCl (Thiamine 100 Mg Tablet) 100 mg PO BID [facility] Stop: 06/15/25 04:59 Trimethoprim/Sulfamethoxazole (Trimethoprim/Sulfa 160/800 Ds Tablet) 1 tab PO BID [facility] Stop: 06/11/25 21:00 Last Admin: 06/09/25 03:31 Dose: 1 tab Documented By: CVL Discontinued Medications Chlordiazepoxide HCl (Chlordiazepoxide Hcl 25 Mg Capsule) 25 mg PO Q6HR PRN PRN Reason: breakthrough agitation Stop: 06/11/25 02:52 Phenobarbital Sodium 130 mg/ (Sodium Chloride 12 ml) 0 mg IVP X1 ONE Stop: 06/09/25 02:38 Last Admin: 06/09/25 02:56 Dose: 130 mg Documented By: CVL Diazepam (Diazepam 5 Mg Tablet) 5 mg PO X1 ONE Stop: 06/09/25 02:40 Last Admin: 06/09/25 02:56 Dose: 5 mg Documented By: CVL Lactated Ringer's (Lactated Ringers) 1,000 mls @ 1,000 mls/hr IV .Q1H ONE Stop: 06/09/25 00:33 Last Infusion: 06/09/25 00:52 Dose: Infused Documented By: Admin: 06/08/25 23:54 Dose: 1,000 mls/hr Documented By: CVL Ceftriaxone Sodium/Dextrose (Rocephin/D5w 1gm Iv Premix) 1 gm in 50 mls @ 100 mls/hr IV X1 ONE Stop: 06/09/25 02:14 Last Infusion: 06/09/25 01:22 PST Dose: Infused Documented By: Admin: 06/09/25 01:53 PDT Dose: 100 mls/hr Documented By: CVL Lorazepam (Lorazepam 2 Mg/Ml Vial) 2 mg IVP X1 ONE Stop: 06/08/25 23:35 Last Admin: 06/08/25 23:53 Dose: 2 mg Documented By: CVL Ondansetron HCl (Ondansetron Inj 2 Mg/Ml Inj 2 Ml) 4 mg IVP X1 ONE; Protocol Stop: 06/08/25 23:35 Last Admin: 06/08/25 23:55 Dose: 4 mg Documented By: CVL Potassium Chloride (Potassium Chloride 20 Meq Tabcr) 40 meq PO X1 ONE Stop: 06/09/25 02:47 Last Admin: 06/09/25 03:11 Dose: 40 meq Documented By: CVL Thiamine HCl (Thiamine Inj 100 Mg/Ml Vial 2 Ml) 100 mg IVP X1 ONE Stop: 06/08/25 23:35 Last Admin: 06/08/25 23:54 Dose: 100 mg Documented By: CVL Thiamine HCl (Thiamine Inj 100 Mg/Ml Vial 2 Ml) 500 mg IVP X1 ONE Stop: 06/09/25 02:39 Last Admin: 06/09/25 03:01 Dose: 500 mg Documented By: CVL Treatment here from me included: IVF Ativan 2mg IV Zofran 4 mg IV Thiamine 100 mg IV Rocephin 1 G IV Consultations Consultation(s) initiated? (list below): Yes Consultation #1 (Physician, Specialty, Details): I discussed the case with our resident physician for hospitalist. About the presentation and exam and diagnostics and treatments here. And need of further care in the hospital. Agreed to accept the patient. Time: 01:33 Diagnosis Differential diagnosis alcohol: alcohol withdrawal delirium, hypomagnesemia, alcohol ketoacidosis, alcohol withdrawal syndrome and alcohol withdrawal seizure Most likely diagnosis given after review of the tests above:: Alcohol Withdrawal UTI Admission Indicated Admission indicated?: indicated Explain why admission is indicated or not indicated:: Alcohol Withdrawal Admission Request Was there a request for admission?: Yes Admission Attestation Admission request attestation: Discussed case with Hospitalist service regarding admission. Discussed patients ED course, exam findings, labs, and radiology results. Agreed to accept the patient for admission. Disposition Plan Disposition Plan: Admit
--- NOTE | 2025-06-08 23:35 | XR_ITS ---
EXAMINATION: AP chest single view TECHNIQUE: 1. AP portable upright chest single view Date and time: June 09, 2025, 0033 hours INDICATIONS: Shortness of breath today. FINDINGS: Normal heart size No aspiration pneumonia. The Jaxson structures are intact. IMPRESSION: No active disease
--- NOTE | 2025-06-08 23:35 | EKG_ITS ---
[facility] Test Date: 2025-06-08 Pat Name: JOHNNY CRUZ Department: Room: - Gender: Female Data Analysis Assistant: : 1995 Requested By: Danis Herrera Order Number: [id number] Reading MD: Danis Herrera Measurements Intervals [place] Rate: 115 P: 30 IA: 146 QRS: 29 QRSD: 86 T: 32 QT: 318 QTc: 441 Interpretive Statements SINUS TACHYCARDIA NONSPECIFIC T-WAVE ABNORMALITY ABNORMAL RHYTHM ECG Compared to ECG 03/28/2025 07:49:03 No significant changes /store/S0/[id number].pdf
--- NOTE | 2025-06-08 23:47 | PD.EDALCOH ---
ED Alcohol RME/HPI General Chief Complaint: Alcohol Stated Complaint: ALCOHOL WITHDRAWAL Time Seen by Provider: 06/08/25 23:46 Arrival date/time: 06/08/25 23:21 RME / HPI RME / HPI narrative: See [facility] for Dr. Frankel's HPI Documentation. Related Data Home Medications ?Medication ?Instructions ?Recorded ?Confirmed sertraline 100 mg tablet 100 mg PO Q24H 03/27/25 03/27/25 Previous Rx's ?Medication ?Instructions ?Recorded metoprolol tartrate 25 mg tablet 25 mg PO BID #60 tabs 03/30/25 Allergies Allergy/AdvReac Type Severity Reaction Status Date / Time No Known Allergies Allergy Verified 06/08/25 23:26 Course Orders Category Date Time Status EKG (ED ONLY) *Do not use* NOW Care 06/08/25 23:35 Completed Saline [Insert IV] NOW Care 06/08/25 23:34 Active EKG (ED Only) Stat Exams 06/08/25 23:35 Draft XR chest 1V portable Stat Exams 06/08/25 23:35 Ordered Acetaminophen Stat Lab 06/08/25 23:56 Received Alcohol, Blood Medical Stat Lab 06/08/25 23:56 Received Ammonia Stat Lab 06/08/25 23:56 Received Amylase Stat Lab 06/08/25 23:56 Received BNP [B-Type Natriuretic Peptide] Stat Lab 06/08/25 23:56 Received Beta Hydroxybutyrate Stat Lab 06/08/25 23:56 Received Bilirubin,Direct Stat Lab 06/08/25 23:56 Received CBC Stat Lab 06/08/25 23:56 Completed CMP [Comprehensive Metabolic Panel] Stat Lab 06/08/25 23:56 Received Drug Screen,Urine Stat Lab 06/08/25 23:35 Ordered HCG,Qualitative Serum Stat Lab 06/08/25 23:56 Received Lipase Stat Lab 06/08/25 23:56 Received Magnesium Stat Lab 06/08/25 23:56 Received PT [Prothrombin Time with INR] Stat Lab 06/08/25 23:56 Received PTT [Partial Thromboplastin Time] Stat Lab 06/08/25 23:56 Received TSH [Thyroid Stimulating Hormone] Stat Lab 06/08/25 23:56 Received Troponin I Stat Lab 06/08/25 23:56 Received UA, C/S IF [Urinalysis, C/S if Indicated] Stat Lab 06/08/25 23:36 Ordered VBG [Venous Blood Gas] Stat Lab 06/08/25 23:36 Completed LORazepam [Ativan Inj] Med 06/08/25 23:34 Discontinued 2 mg IVP X1 ONE Ondansetron Inj [Zofran Inj] Med 06/08/25 23:34 Discontinued 4 mg IVP X1 ONE Ringers Lactated 1000 ml [Lactated Ringers] 1,000 ml Med 06/08/25 23:34 Active IV 1,000 mls/hr Thiamine Inj [Vitamin B-1 Inj] Med 06/08/25 23:34 Discontinued 100 mg IVP X1 ONE Vital Signs Vital signs: Vital Signs Temperature 98.3 F 06/08/25 23:34 Pulse Rate 118 H 06/08/25 23:34 Respiratory Rate 20 06/08/25 23:34 Blood Pressure 145/95 H 06/08/25 23:34 Pulse Oximetry (%) 96 06/08/25 23:34 Oxygen Delivery Method Room Air 06/08/25 23:34 Discharge Plan Prescriptions/Referrals Prescriptions/Med Rec: No Action sertraline 100 mg tablet 100 mg PO Q24H metoprolol tartrate 25 mg tablet 25 mg PO BID Qty: 60 1RF Patient/Caregiver Discharge Instructions Print Language: Yi Alcohol Evaluation data The following diagnostics were reviewed and interpreted by me:: EKG tracing(s) (My interpretation of the EKG is: Sinus tachycardia (115 bpm) with nonspecific ST-T changes. Danis Frankel MD) Medications / Prescriptions Medication administrations:: Medication Administration History Lactated Ringer's (Lactated Ringers) 1,000 mls @ 1,000 mls/hr IV .Q1H ONE Stop: 06/09/25 00:33 Last Admin: 06/08/25 23:54 Dose: 1,000 mls/hr Documented By: CVL Discontinued Medications Lorazepam (Lorazepam 2 Mg/Ml Vial) 2 mg IVP X1 ONE Stop: 06/08/25 23:35 Last Admin: 06/08/25 23:53 Dose: 2 mg Documented By: CVL Ondansetron HCl (Ondansetron Inj 2 Mg/Ml Inj 2 Ml) 4 mg IVP X1 ONE; Protocol Stop: 06/08/25 23:35 Last Admin: 06/08/25 23:55 Dose: 4 mg Documented By: CVL Thiamine HCl (Thiamine Inj 100 Mg/Ml Vial 2 Ml) 100 mg IVP X1 ONE Stop: 06/08/25 23:35 Last Admin: 06/08/25 23:54 Dose: 100 mg Documented By: CVL
[2025-06-08] MEDS: LORazepam 2 MG/ML VIAL IVP (23:53)
[2025-06-08] MEDS: RINGERS LACTATED 1000 ML 1,000 ML IV (23:54)
[2025-06-08] MEDS: THIAMINE INJ 100 MG/ML VIAL 2 ML IVP (23:54)
[2025-06-08] MEDS: ONDANSETRON INJ 2 MG/ML INJ 2 ML 4 MG IVP (23:55)
[2025-06-09] VITALS (14 sets, daily range): BP systolic 129–163; BP diastolic 78–107; PULSE 98–118; RESP 12–20; TEMP 35.9–37.2; O2SAT 92–98
[2025-06-09 00:06] LABS: Base Excess, Venous -2 (-3-3); O2 Saturation, Venous 93 % (96-97); PCO2, Venous 39 mmHg (36-56); PO2, Venous 69 mmHg (15-58); pH, Venous 7.37 (7.33-7.66)
[2025-06-09 00:10] LABS: Basophils # (Auto) 0.0 Thou/mm3 (0.0-0.2); Basophils % (Auto) 0 % (0-2.5); Eosinophils # (Auto) 0.1 Thou/mm3 (0.0-0.5); Eosinophils % (Auto) 1 % (0-10); Hematocrit 42.5 % (36.0-46.0); Hemoglobin 14.1 g/dL (12.0-16.0); Immature Granulocytes Auto 0.02 Thou/mm3 (0.00-0.00); Lymphocytes # (Auto) 2.5 Thou/mm3 (1.0-4.8); Lymphocytes % (Auto) 28 % (10-50); Mean Corpuscular HGB Conc 33.2 g/dl (31.0-37.0); Mean Corpuscular Hemoglobin 31.3 pg (25.0-35.0); Mean Corpuscular Volume 94 fL (80-100); Monocytes # (Auto) 0.7 Thou/mm3 (0.0-0.8); Monocytes % (Auto) 8 % (0-12); Neutrophils # (Auto) 5.7 Thou/mm3 (1.8-7.7); Neutrophils % (Auto) 63 % (37-80); Nucleated Red Blood Cell # 0.00 Thou/mm3 (0.00-0.00); Nucleated Red Blood Cell % 0 /100 WBC (0); Platelet Count 252 Thou/mm3 (140-440); RDW Standard Deviation 45.4 fL (36.4-46.3); Red Blood Count 4.51 Miln/mm3 (4.00-5.20); White Blood Count 9.1 Thou/mm3 (3.6-11.0)
[2025-06-09 00:21] LABS: Beta Hydroxybutyrate 0.3 mmol/L (<0.6); HCG,Qualitative Serum Negative
[2025-06-09 00:22] LABS: INR 1.0 (0.9-1.3); Partial Thromboplastin Time 28.7 Seconds (22.0-36.0); Prothrombin Time 10.3 Seconds (9.0-12.2)
[2025-06-09 00:25] LABS: B-Type Natriuretic Peptide < 20 pg/mL (0-100)
[2025-06-09 00:26] LABS: Ammonia 23 uMol/L (11-32)
[2025-06-09 00:35] LABS: Collection Type, Urine Clean Catch
[2025-06-09 00:58] LABS: Acetaminophen < 2.0 mcg/mL (10.0-20.0); Alanine Aminotransferase 30 U/L (10-49); Albumin, Serum 5.2 gm/dL (3.5-5.0); Albumin/Globulin Ratio 1.9 (1.2-2.2); Alcohol, Blood Medical 299.1 mg/dL (0-10.0); Alkaline Phosphatase 70 U/L (46-116); Amylase 75 U/L (30-118); Anion Gap 17 (7-16); Aspartate Amino Transferase 73 U/L (0-34); BUN/Creatinine Ratio 14 Ratio (12-20); Bilirubin,Direct 0.2 mg/dL (0.0-0.3); Bilirubin,Total 0.7 mg/dL (0.3-1.2); Blood Urea Nitrogen 10 mg/dL (9-23); Calcium 9.1 mg/dL (8.3-10.6); Calcium (Corrected) 9.1 mg/dL (8.5-10.1); Carbon Dioxide 21.1 mMol/L (20.0-31.0); Chloride 104 mMol/L (98-107); Creatinine (Component) 0.7 mg/dL (0.6-1.3); Estimated Creatinine Clearance 125.4 mL/min (>60); Globulin 2.7 gm/dL (2.3-3.5); Glucose 79 mg/dL (74-106); Lipase 45 U/L (12-53); Magnesium 2.0 mg/dL (1.6-2.6); Osmolality,Calculated 281 (275-295); Potassium 3.5 mMol/L (3.4-5.1); Sodium 142 mMol/L (136-145); Thyroid Stimulating Hormone 2.36 uIU/mL (0.55-4.78); Total Protein 7.9 gm/dL (5.7-8.2); Troponin I < 0.002 ng/mL (0.0-0.045); eGFR > 60 See Note
[2025-06-09 01:12] LABS: Bacteria,Urine Rare; Bilirubin,Urine Negative (Negative); Blood,Urine 1+ (Negative); Clarity,Urine Clear (Clear/Hazy); Color,Urine Yellow (Lt Yel-Yel); Glucose, Urine Negative (Negative); Ketones,Urine Negative (Negative); Leukocyte Esterase,Urine Positive (Negative); Nitrite,Urine Negative (Negative); PH,Urine 6.0 (5.0-7.0); Protein,Urine 2+ (Neg - Trace); RBC,Urine 1 /hpf (0-3); Specific Gravity,Urine 1.027 (1.001-1.035); Squamous Epithelial Cell,Urine 2 /hpf (0-5); Urobilinogen,Urine Negative mg/dL (0.0-1.0); WBC,Urine 15 /hpf (0-5)
[2025-06-09 01:14] LABS: Culture Indicated,Urine Yes
[2025-06-09 01:16] LABS: Amphetamine/Methamp Scrn,U Negative (Negative); Barbiturate Screen,Urine Negative (Negative); Benzodiazepines Screen,Urine Positive (Negative); Benzoylecgonine Screen, Ur Negative (Negative); Fentanyl Screen,Urine Negative (Negative); Opiate Screen,Urine Negative (Negative); THC Screen,Urine Negative (Negative)
[2025-06-09] MEDS: cefTRIAXone/D5w 1gm IV premix 1 GM/50 ML BAG IV (01:53)
[2025-06-09] MEDS: PHENobarbital Inj 130 MG, SODIUM CHLORIDE 0.9% FLUSH 12 ML IVP (02:56)
[2025-06-09] MEDS: DIAZEPAM 5 MG TABLET PO (02:56)
[2025-06-09 02:59] LABS: Phosphorous 3.4 mg/dL (2.4-5.1)
[2025-06-09] MEDS: THIAMINE INJ 100 MG/ML VIAL 2 ML 500 MG IVP (03:01)
--- NOTE | 2025-06-09 03:02 | PD.RESHP ---
Documentation for date of: 06/09/25 [facility] History of Present Illness History of present illness: 30-year-old female with a history of depression (PPD) and alcohol use disorder, who presents to the emergency department after being brought in by EMS for suspected alcohol withdrawal. She reports a gradual increase in alcohol consumption over the past three weeks, currently drinking 1-2 vodka bottles daily, although she has been actively trying to quit. The patient is particularly concerned about the risk of seizures during withdrawal. She denies any hospitalizations related to PPD, though she experienced severe depression after both of her pregnancies, the most recent being 8 months ago. The patient does not currently see a psychiatrist for management of her mental health. She reports that Child Welfare Services took her two children away today, which she states led to significant emotional distress and triggered her to binge drink, though the exact amount of alcohol consumed this morning is unknown. The patient describes one episode of vomiting earlier today, but denies any blood or hematemesis. She also reports urinary symptoms, including increased frequency, urgency, and burning with urination. Her current symptoms include tremors, anxiety, and persistent restlessness. She denies any auditory, visual, or tactile hallucinations at this time. The patient's last drink was this morning. ED course: Initial vitals were temperature 98.3?F, BP 145/95 mmHg, HR 118 bpm, RR 23/min, and 96% on room air. Lab results showed a urine alcohol level of 299 mg/dL, positive leukocyte esterase and WBC 15 on UA, and unremarkable CBC. Chemistry panel revealed creatinine 0.7, phosphorus 3.4, magnesium 2.0, AST 73, and ALP 30. TSH was normal, and beta-hCG was negative. She was treated with lorazepam 2 mg IV for alcohol withdrawal, a 1 L bolus of LR, thiamine 100 mg IV followed by 500 mg x1, ceftriaxone 1 g IV for broad-spectrum antibiotic coverage, phenobarbital 130 mg IV, diazepam 5 mg PO, and potassium chloride 40 mEq IV for electrolyte correction. LR maintenance at 75 mL/hour was initiated for hydration. Past medical history: As stated above. Allergies: NKDA Family history: Noncontributory. Social history: No alcohol use, no smoking, no illicit drug use. Patient admitted for alcohol withdrawal. Review of Systems Review of Systems Narrative Review of Systems: All systems reviewed negative unless stated otherwise above. Exam Vital Signs Temp Pulse Resp BP Pulse Ox O2 Del Method 98.9 F 108 H 18 139/95 H 95 Room Air 06/09/25 01:55 PDT 06/09/25 02:43 06/09/25 02:43 06/09/25 02:43 06/09/25 02:43 06/09/25 02:43 Narrative Exam General: No acute distress, fidgety, cooperative, flushed face, coherent speech, Qatari-speaking, bilat tremors HEENT: NCAT, Mucosa moist. Pupils are equal and reactive to light bilaterally Cardiovascular: Normal S1 and S2. Regular rate and rhythm. Tachycardic. Respiratory: Lungs are clear to auscultation bilaterally. No wheezing or crackles heard. Abdomen: Soft, nontender, not distended, normal bowel sounds. Skin: Warm to touch, dry, no rashes noted Musculoskeletal: No gross injuries. Able to move all 4 extremities. No pitting edema Neuro: Alert and oriented x3. Cranial nerves: II through XII grossly intact. Psych: Normal affect and mood Results: Labs 06/10/25 05:02 06/10/25 05:02 Labs: Short CBC 06/08/25 Range/Units 23:56 WBC 9.1 (3.6-11.0) Thou/mm3 Hgb 14.1 (12.0-16.0) g/dL Hct 42.5 (36.0-46.0) % Plt Count 252 (140-440) Thou/mm3 BMP 06/08/25 23:56 Sodium 142 Potassium 3.5 Chloride 104 Carbon Dioxide 21.1 BUN 10 Creatinine 0.7 Glucose 79 Calcium 9.1 Cardiac Enzymes 06/08/25 Range/Units 23:56 Troponin I < 0.002 (0.0-0.045) ng/mL Liver Function 06/08/25 Range/Units 23:56 Total Bilirubin 0.7 (0.3-1.2) mg/dL Direct Bilirubin 0.2 (0.0-0.3) mg/dL AST 73 H (0-34) U/L ALT 30 (10-49) U/L Alkaline Phosphatase 70 (46-116) U/L Albumin 5.2 H (3.5-5.0) gm/dL Urine 06/09/25 Range/Units 00:29 Urine Color Yellow (Lt Yel-Yel) Urine Clarity Clear (Clear/Hazy) Urine pH 6.0 (5.0-7.0) Ur Specific [place] 1.027 (1.001-1.035) Urine Protein 2+ A (Neg - Trace) Urine Glucose (UA) Negative (Negative) ABG Interpretation ABG results: 06/08/25 23:36 VBG pH 7.37 VBG pCO2 39 VBG pO2 69 H VBG Base Excess -2 Quality Measures Quality Measures none Medications Home Medications and Allergies Home Medications ?Medication ?Instructions ?Recorded ?Confirmed ?Type sertraline 100 mg tablet 100 mg PO Q24H 03/27/25 06/09/25 History thiamine HCl (vitamin B1) 100 mg 100 mg PO DAILY 06/09/25 06/09/25 History tablet Allergies Allergy/AdvReac Type Severity Reaction Status Date / Time No Known Allergies Allergy Verified 06/08/25 23:26 Visit Medications Acetaminophen (Acetaminophen 325 Mg Tablet) 650 mg PO Q6H PRN PRN Reason: PAIN SCALE 1-3 (mild Stop: 07/09/25 02:45 Chlordiazepoxide HCl (Chlordiazepoxide Hcl 25 Mg Capsule) 25 mg PO Q6HR PRN PRN Reason: breakthrough agitation Stop: 06/11/25 02:52 Folic Acid (Folic Acid 1 Mg Tablet) 1 mg PO BID YONG Stop: 06/14/25 08:59 Lactated Ringer's (Lactated Ringers) 1,000 mls @ 75 mls/hr IV .[id number] YONG Stop: 06/09/25 16:19 Magnesium Sulfate (Magnesium Sulfate Ivpb) 4 gm in 50 mls @ 12.5 mls/hr IV X1 ONE Stop: 06/09/25 06:45 Lorazepam (Lorazepam 0.5 Mg Tablet) 0.5 mg PO Q4HR PRN PRN Reason: CIWA Score 2-6 Stop: 06/14/25 02:50 Lorazepam (Lorazepam 0.5 Mg Tablet) 1 mg PO Q4HR PRN PRN Reason: CIWA SCORE 7-11 Stop: 06/14/25 02:50 Lorazepam (Lorazepam 0.5 Mg Tablet) 2 mg PO Q4HR PRN PRN Reason: CIWA SCORE 12-15 Stop: 06/14/25 02:50 Ondansetron HCl (Ondansetron Inj 2 Mg/Ml Inj 2 Ml) 4 mg IVP Q6H PRN; Protocol PRN Reason: NAUSEA OR VOMITING Stop: 07/09/25 02:45 Sertraline HCl (Sertraline Hcl 25 Mg Tablet) 100 mg PO QDAY YONG Stop: 07/09/25 08:59 Thiamine HCl (Thiamine 100 Mg Tablet) 100 mg PO BID YONG Stop: 06/15/25 04:59 Discontinued Medications Phenobarbital Sodium 130 mg/ (Sodium Chloride 12 ml) 0 mg IVP X1 ONE Stop: 06/09/25 02:38 Diazepam (Diazepam 5 Mg Tablet) 5 mg PO X1 ONE Stop: 06/09/25 02:40 Lactated Ringer's (Lactated Ringers) 1,000 mls @ 1,000 mls/hr IV .Q1H ONE Stop: 06/09/25 00:33 Last Infusion: 06/09/25 00:52 Dose: Infused Ceftriaxone Sodium/Dextrose (Rocephin/D5w 1gm Iv Premix) 1 gm in 50 mls @ 100 mls/hr IV X1 ONE Stop: 06/09/25 02:14 Last Infusion: 06/09/25 01:22 PST Dose: Infused Lorazepam (Lorazepam 2 Mg/Ml Vial) 2 mg IVP X1 ONE Stop: 06/08/25 23:35 Last Admin: 06/08/25 23:53 Dose: 2 mg Ondansetron HCl (Ondansetron Inj 2 Mg/Ml Inj 2 Ml) 4 mg IVP X1 ONE; Protocol Stop: 06/08/25 23:35 Last Admin: 06/08/25 23:55 Dose: 4 mg Potassium Chloride (Potassium Chloride 20 Meq Tabcr) 40 meq PO X1 ONE Stop: 06/09/25 02:47 Thiamine HCl (Thiamine Inj 100 Mg/Ml Vial 2 Ml) 100 mg IVP X1 ONE Stop: 06/08/25 23:35 Last Admin: 06/08/25 23:54 Dose: 100 mg Thiamine HCl (Thiamine Inj 100 Mg/Ml Vial 2 Ml) 500 mg IVP X1 ONE Stop: 06/09/25 02:39 Assessment & Plan Plan 30-year-old female with a history of depression and alcohol use disorder, presents to the emergency department 06/08 after being brought in by EMS for suspected alcohol withdrawal. Patient admitted for management of EtOH withdrawals. #Alcohol withdrawal #Hx of alcohol withdrawal seizures. #History of alcohol use Gradual increase in alcohol consumption over the past three weeks, currently drinking 1-2 vodka bottles daily, although she has been actively trying to quit. Last drink was 06/08 in the AM no time specified and unknown amount drank Urine EtOH 299 AST 73, and ALP 30 CIWA at the time of admission was 10 In ED patient recieved lorazepam 2 mg IV, thiamine 100 mg IV followed by 500 mg, phenobarbital 130 mg IV, diazepam 5 mg PO, Plan ? CIWA protocol ? Seizure precautions ? Thaimine 100mg qday ? Folic acid 1mg qday ? Replete electrolytes as needed #UTI #History of ESBL Patient endorses increased urinary frequency, urgency, burning sensation Urine WBC 15, urine leuk esterase positive Patient has history of ESBL 03/27/2025 Recieved CTX 1g in ED. Plan: ?Bactrim DS IV ?Follow-up urine culture # depression Patient does not see any psychiatrist Child welfare services took patient's children today and patient has been binge drinking as a result Plan ? Restarted home sertraline 100 mg daily ? Social work referral Health Maintenance: Diet: Regular GI prophylaxis: None DVT prophylaxis: Lovenox 40 mg daily Antibiotics: Bactrium DS IV CODE STATUS: Full Disposition: Telemetry Case discussed with my attending Dr. Rodas, and senior resident, Dr. Aggie Boyd MD PGY-1 Attending Provider Attestation/Addendum After examination of the patient and review of the clinical data I feel that this patient needs admission to the hospital for further treatment/evaluation. Plan of care discussed with patient and is in agreement. I Karla Rodas MD, attest that I was physically present for ferrera portions of evaluation, and examined patient, labs and imagings and plan of care were discussed with IM residents team, and I agree with the findings and plans documented above.
[2025-06-09] MEDS: RINGERS LACTATED 1000 ML 1,000 ML 75 ML IV (03:13)
[2025-06-09] MEDS: Magnesium Sulfate 4 GM Ivpb 4 GM/50 ML BAG IV (03:15)
[2025-06-09] MEDS: RINGERS LACTATED 1000 ML 1,000 ML 999 ML IV (03:31)
[2025-06-09] MEDS: TRIMETHOPRIM/SULFA 160/800 DS TABLET 1 TAB PO (03:31)
[2025-06-09 05:17] LABS: Basophils # (Auto) 0.0 Thou/mm3 (0.0-0.2); Basophils % (Auto) 1 % (0-2.5); Eosinophils # (Auto) 0.1 Thou/mm3 (0.0-0.5); Eosinophils % (Auto) 2 % (0-10); Hematocrit 38.6 % (36.0-46.0); Hemoglobin 12.7 g/dL (12.0-16.0); Immature Granulocytes Auto 0.02 Thou/mm3 (0.00-0.00); Lymphocytes # (Auto) 1.3 Thou/mm3 (1.0-4.8); Lymphocytes % (Auto) 19 % (10-50); Mean Corpuscular HGB Conc 32.9 g/dl (31.0-37.0); Mean Corpuscular Hemoglobin 31.1 pg (25.0-35.0); Mean Corpuscular Volume 95 fL (80-100); Monocytes # (Auto) 0.6 Thou/mm3 (0.0-0.8); Monocytes % (Auto) 9 % (0-12); Neutrophils # (Auto) 4.6 Thou/mm3 (1.8-7.7); Neutrophils % (Auto) 69 % (37-80); Nucleated Red Blood Cell # 0.00 Thou/mm3 (0.00-0.00); Nucleated Red Blood Cell % 0 /100 WBC (0); Platelet Count 174 Thou/mm3 (140-440); RDW Standard Deviation 44.7 fL (36.4-46.3); Red Blood Count 4.08 Miln/mm3 (4.00-5.20); White Blood Count 6.6 Thou/mm3 (3.6-11.0)
[2025-06-09 05:33] LABS: Alanine Aminotransferase 26 U/L (10-49); Albumin, Serum 4.2 gm/dL (3.5-5.0); Albumin/Globulin Ratio 2.2 (1.2-2.2); Alkaline Phosphatase 59 U/L (46-116); Anion Gap 12 (7-16); Aspartate Amino Transferase 61 U/L (0-34); BUN/Creatinine Ratio 13 Ratio (12-20); Bilirubin,Total 0.8 mg/dL (0.3-1.2); Blood Urea Nitrogen 8 mg/dL (9-23); Calcium 8.9 mg/dL (8.3-10.6); Calcium (Corrected) 8.9 mg/dL (8.5-10.1); Carbon Dioxide 24.6 mMol/L (20.0-31.0); Cardiac Risk Estimate 2.1 RATIO (3.7-5.6); Chloride 104 mMol/L (98-107); Cholesterol 287 mg/dL (132-200); Creatinine (Component) 0.6 mg/dL (0.6-1.3); Estimated Creatinine Clearance 146.4 mL/min (>60); Globulin 1.9 gm/dL (2.3-3.5); Glucose 82 mg/dL (74-106); HDL Cholesterol 137 mg/dL (40-60); LDL Cholesterol,Calculated 132 mg/dL (0-130); Magnesium 2.2 mg/dL (1.6-2.6); Osmolality,Calculated 278 (275-295); Potassium 3.9 mMol/L (3.4-5.1); Sodium 141 mMol/L (136-145); Total Protein 6.1 gm/dL (5.7-8.2); Triglycerides 88 mg/dL (30-150); eGFR > 60 See Note
--- NOTE | 2025-06-09 06:07 | PC.NURSE ---
REPORT GIVEN TO JESSI WOODARD AT TELE.
[2025-06-09] MEDS: ACETAMINOPHEN 325 MG TABLET 650 MG PO ×2 (06:49→13:51)
[2025-06-09] MEDS: FOLIC ACID 1 MG TABLET PO ×2 (09:20→20:34)
[2025-06-09] MEDS: SERTRALINE HCL 25 MG TABLET 100 MG PO (09:20)
[2025-06-09] MEDS: ENOXAPARIN SOD INJ 40 MG/0.4 ML SYRINGE SC (09:20)
[2025-06-09] MEDS: LEVOFLOXACIN/D5W 250MG IVPB 250 MG/50 ML BAG 50 MG IV (12:04)
--- NOTE | 2025-06-09 15:15 | PC.SS ---
Rounding: RENAY protocol, on librium
--- NOTE | 2025-06-09 16:07 | ESPR_ITS ---
<Statement entered by Lemuel Ojeda MD - 06/10/25 05:59> Patient was seen and examined at bedside. I agree on the assessment and plan on this note as documented by resident Zaheer Penn DO PGY1. 30-year-old female with past medical history of depression and complicated alcohol use disorder, has tried multiple interventions in the past, was admitted to [facility] for AUD in the past as well for alcohol withdrawal management admitted overnight for alcohol withdrawal, seen at bedside patient continues to exhibit signs of withdrawal, significant tremors noted, will start on Librium 25 p.o. 3 times daily along with CIWA protocol, continue thiamine folic acid. Patient's antibiotic therapy switched from Bactrim to levofloxacin to cover for urinary tract infection. Will continue to manage alcohol withdrawal symptoms, estimated length of stay 2 more days. Case discussed with attending Dr. Konrad Ojeda MD PGY-2 Documentation for date of: 06/09/25 Subjective Subjective Interval history: Patient was seen and examined at bedside. No acute events took place overnight. Patient states drinking 1 full bottle of vodka daily in the context of severe depression after giving 8 months ago. Unfortunately, her 2 children were taken away by Child Welfare, and the event which led to significant emotional distress and triggered her to binge drink. Patient states that her last drink was yesterday in the morning. She states that she tries to quit drinking actively. Denies nausea, vomiting, abdominal pain, auditory visual or tactile hallucinations. Admits to headache, anxiety, agitation. Denies heightened visual or auditory sensation. CIWA 13. Exam Vital Signs Temp Pulse Resp BP Pulse Ox O2 Del Method 97.0 F 118 H 18 149/101 H 98 Room Air 06/09/25 12:00 06/09/25 12:00 06/09/25 12:00 06/09/25 12:00 06/09/25 12:00 06/09/25 12:00 Narrative Exam General: No acute distress, fidgety, cooperative, flushed face, coherent speech, Sudanese-speaking, bilat tremors HEENT: NCAT, Mucosa moist. Pupils are equal and reactive to light bilaterally Cardiovascular: Normal S1 and S2. Regular rate and rhythm. Tachycardic. Respiratory: Lungs are clear to auscultation bilaterally. No wheezing or crackles heard. Abdomen: Soft, nontender, not distended, normal bowel sounds. Skin: Warm to touch, dry, no rashes noted Musculoskeletal: No gross injuries. Able to move all 4 extremities. No pitting edema Neuro: Alert and oriented x3. Cranial nerves: II through XII grossly intact. Psych: Normal affect and mood Objective Labs 06/10/25 05:02 06/10/25 05:02 Labs: Laboratory Results - last 24 hr 06/08/25 06/08/25 06/09/25 23:36 23:56 00:29 WBC 9.1 RBC 4.51 Hgb 14.1 Hct 42.5 MCV 94 MCH 31.3 MCHC 33.2 RDW Std Deviation 45.4 Plt Count 252 Neut % (Auto) 63 Lymph % (Auto) 28 [place] % (Auto) 8 Eos % (Auto) 1 Baso % (Auto) 0 Neut # (Auto) 5.7 Lymph # (Auto) 2.5 [place] # (Auto) 0.7 Eos # (Auto) 0.1 Baso # (Auto) 0.0 Immature Gran # (Auto) 0.02 H Absolute Nucleated RBC 0.00 Immature Gran % 0 Nucleated RBC % 0 PT 10.3 INR 1.0 APTT 28.7 VBG pH 7.37 VBG pCO2 39 VBG pO2 69 H VBG O2 Sat (Marco) 93 L VBG Base Excess -2 Sodium 142 Potassium 3.5 Chloride 104 Carbon Dioxide 21.1 Anion Gap 17 H BUN 10 Creatinine 0.7 Estim Creat Clear Calc 125.4 eGFR > 60 BUN/Creatinine Ratio 14 Glucose 79 Calculated Osmolality 281 Calcium 9.1 Corrected Calcium 9.1 Phosphorus 3.4 Magnesium 2.0 Total Bilirubin 0.7 Direct Bilirubin 0.2 AST 73 H ALT 30 Alkaline Phosphatase 70 Ammonia 23 Troponin I < 0.002 B-Natriuretic Peptide < 20 Total Protein 7.9 Albumin 5.2 H Globulin 2.7 Albumin/Globulin Ratio 1.9 Triglycerides Cholesterol LDL Cholesterol, Calc HDL Cholesterol Cholesterol/HDL Ratio Amylase 75 Lipase 45 Beta-Hydroxybutyrate/Acetoacetate 0.3 TSH 2.36 HCG, Qual Negative Ur Collection Type Clean Catch Urine Color Yellow Urine Clarity Clear Urine pH 6.0 Ur Specific [place] 1.027 Urine Protein 2+ A Urine Glucose (UA) Negative Urine Ketones Negative Urine Blood 1+ A Urine Nitrite Negative Urine Bilirubin Negative Urine Urobilinogen (Auto) Negative Ur Leukocyte Esterase Positive Urine RBC 1 Urine WBC 15 H Ur Squamous Epith Cells 2 Urine Bacteria Rare Ur Culture Indicated? Yes Urine Opiates Screen Negative Urine Fentanyl Screen Negative Acetaminophen < 2.0 L Ur Barbiturates Screen Negative U Amphetamin/Meth Scrn Negative U Benzodiazepines Scrn Positive A U Cocaine Metab Screen Negative U Marijuana (THC) Screen Negative Ethyl Alcohol 299.1 H 06/09/25 04:59 WBC 6.6 RBC 4.08 Hgb 12.7 Hct 38.6 MCV 95 MCH 31.1 MCHC 32.9 RDW Std Deviation 44.7 Plt Count 174 D Neut % (Auto) 69 Lymph % (Auto) 19 [place] % (Auto) 9 Eos % (Auto) 2 Baso % (Auto) 1 Neut # (Auto) 4.6 Lymph # (Auto) 1.3 [place] # (Auto) 0.6 Eos # (Auto) 0.1 Baso # (Auto) 0.0 Immature Gran # (Auto) 0.02 H Absolute Nucleated RBC 0.00 Immature Gran % 0 Nucleated RBC % 0 PT INR APTT VBG pH VBG pCO2 VBG pO2 VBG O2 Sat (Marco) VBG Base Excess Sodium 141 Potassium 3.9 Chloride 104 Carbon Dioxide 24.6 Anion Gap 12 BUN 8 L Creatinine 0.6 Estim Creat Clear Calc 146.4 eGFR > 60 BUN/Creatinine Ratio 13 Glucose 82 Calculated Osmolality 278 Calcium 8.9 Corrected Calcium 8.9 Phosphorus Magnesium 2.2 Total Bilirubin 0.8 Direct Bilirubin AST 61 H ALT 26 Alkaline Phosphatase 59 Ammonia Troponin I B-Natriuretic Peptide Total Protein 6.1 Albumin 4.2 D Globulin 1.9 L Albumin/Globulin Ratio 2.2 Triglycerides 88 Cholesterol 287 H LDL Cholesterol, Calc 132 H HDL Cholesterol 137 H Cholesterol/HDL Ratio 2.1 L Amylase Lipase Beta-Hydroxybutyrate/Acetoacetate TSH HCG, Qual Ur Collection Type Urine Color Urine Clarity Urine pH Ur Specific [place] Urine Protein Urine Glucose (UA) Urine Ketones Urine Blood Urine Nitrite Urine Bilirubin Urine Urobilinogen (Auto) Ur Leukocyte Esterase Urine RBC Urine WBC Ur Squamous Epith Cells Urine Bacteria Ur Culture Indicated? Urine Opiates Screen Urine Fentanyl Screen Acetaminophen Ur Barbiturates Screen U Amphetamin/Meth Scrn U Benzodiazepines Scrn U Cocaine Metab Screen U Marijuana (THC) Screen Ethyl Alcohol ABG Interpretation ABG results: 06/08/25 23:36 VBG pH 7.37 VBG pCO2 39 VBG pO2 69 H VBG Base Excess -2 Quality Measures Quality Measures none Assessment & Plan Assessment Current Active Medications: Generic Name Dose Route Start Last Admin Trade Name Freq PRN Reason Stop Dose Admin Acetaminophen 650 mg 06/09/25 02:46 06/09/25 13:51 Acetaminophen 325 Mg Tablet PO 07/09/25 02:45 650 mg Q6H PRN Administration PAIN SCALE 1-3 (mild Chlordiazepoxide HCl 25 mg 06/09/25 12:00 06/09/25 12:04 Chlordiazepoxide Hcl 25 Mg Capsule PO 06/14/25 11:59 25 mg Q8HR YONG Administration Enoxaparin Sodium 40 mg 06/09/25 09:00 06/09/25 09:20 Enoxaparin Sod Inj 40 Mg/0.4 Ml Syringe SC 06/23/25 08:59 40 mg QDAY YONG Administration Folic Acid 1 mg 06/09/25 09:00 06/09/25 09:20 Folic Acid 1 Mg Tablet PO 06/14/25 08:59 1 mg BID YONG Administration Lactated Ringer's 1,000 mls @ 75 mls/hr 06/09/25 03:00 06/09/25 03:13 Lactated Ringers IV 06/09/25 16:19 75 mls/hr .[id number] Administration Levofloxacin/Dextrose 250 mg in 50 mls @ 50 mls/hr 06/09/25 11:45 06/09/25 12:04 Levaquin Ivpb IV 06/16/25 11:44 50 mls/hr QDAY YONG Administration Lorazepam 0.5 mg 06/09/25 02:51 Lorazepam 0.5 Mg Tablet PO 06/14/25 02:50 Q4HR PRN CIWA Score 2-6 Lorazepam 1 mg 06/09/25 02:51 06/09/25 06:42 Lorazepam 0.5 Mg Tablet PO 06/14/25 02:50 1 mg Q4HR PRN Administration CIWA SCORE 7-11 Lorazepam 2 mg 06/09/25 02:51 06/09/25 13:52 Lorazepam 0.5 Mg Tablet PO 06/14/25 02:50 2 mg Q4HR PRN Administration CIWA SCORE 12-15 Lorazepam 2 mg 06/09/25 03:13 Lorazepam 2 Mg/Ml Vial IVP 06/14/25 03:59 Q2HR PRN CIWA >16 Ondansetron HCl 4 mg 06/09/25 02:46 Ondansetron Inj 2 Mg/Ml Inj 2 Ml IVP 07/09/25 02:45 Q6H PRN NAUSEA OR VOMITING Protocol Sertraline HCl 100 mg 06/09/25 09:00 06/09/25 09:20 Sertraline Hcl 25 Mg Tablet PO 07/09/25 08:59 100 mg QDAY YONG Administration Thiamine HCl 100 mg 06/10/25 05:00 Thiamine 100 Mg Tablet PO 06/15/25 04:59 BID YONG Plan 30-year-old female with a history of depression and alcohol use disorder, presents to the emergency department 06/08 after being brought in by EMS for suspected alcohol withdrawal. Patient admitted for management of EtOH withdrawals. #Alcohol withdrawal #History of alcohol use Gradual increase in alcohol consumption over the past three weeks, currently drinking 1-2 vodka bottles daily, although she has been actively trying to quit. Last drink was 06/08 in the AM no time specified and unknown amount drank Urine EtOH 299 AST 73, and ALP 30 CIWA at the time of admission was 10 In ED patient recieved lorazepam 2 mg IV, thiamine 100 mg IV followed by 500 mg, phenobarbital 130 mg IV, diazepam 5 mg PO, Plan: - CIWA protocol in place - Scheduled Librium PO 25mg TID - Ativan PO .5mg for CIWA 5-9 Q4h, 1mg for CIWA 10-14 Q4h, and 2mg CIWA 15-19 Q4h PRN - Thiamine PO 100mg bid 06/10- 02/2025 after 5 days - Folic acid 1mg qday - Monitor for breakthrough alcohol withdrawal symptoms (especially, seizures) - Replete electrolytes as needed #UTI #History of ESBL Patient endorses increased urinary frequency, urgency, burning sensation Urine WBC 15, urine leuk esterase positive Patient has history of ESBL 03/27/2025 [address]ved [address]X 1g in ED. Plan: ?Levofloxacin IV 250mg Qday ?Follow-up urine culture # depression Patient does not see any psychiatrist Child welfare services took patient's children today and patient has been binge drinking as a result Plan ? Restarted home sertraline 100 mg daily ? Social work referral Health Maintenance: Diet: Regular GI prophylaxis: None DVT prophylaxis: Lovenox 40 mg daily Antibiotics: Bactrium DS IV CODE STATUS: Full Disposition: Telemetry This case was discussed with my attending physician, Dr. Watts, and senior resident, Dr Ojeda. Zaheer Penn, DO PGY I Attending Provider Attestation/Addendum I have examined the patient, reviewed labs and imaging findings, discussed the case with the resident(s), and reviewed entered orders. I agree with the plan of care as outlined in this note, with these additional summaries/recommendations: Patient seen at bedside. Patient admitted overnight for alcohol withdrawal. She reports she drinks approximately 1 bottle of vodka a day. Patient does have prior history of hospitalizations for alcohol withdrawal including alcohol withdrawal seizures. We will continue CIWA protocol. Add scheduled Librium. Patient expresses desire to quit drinking and referred to foster care social worker. Patient was counseled at bedside on alcohol cessation. Patient endorsed urinary symptoms on admission and urinalysis suggestive of UTI. Urine culture taken and pending. Continue IV antibiotic. Continue home sertraline for depression. Patient updated on the plan and in agreement. All questions answered satisfaction. Please see residents note for additional details and management. Dr. Mac MD
[2025-06-09] MEDS: METOPROLOL TARTRATE 25 MG TABLET PO (20:34)
[2025-06-10] VITALS (8 sets, daily range): BP systolic 129–147; BP diastolic 93–101; PULSE 75–108; RESP 15–84; TEMP 35.9–36.7; O2SAT 93–97; BMI 30.8
[2025-06-10] MEDS: ONDANSETRON INJ 2 MG/ML INJ 2 ML 4 MG IVP (04:58)
[2025-06-10] MEDS: THIAMINE 100 MG TABLET PO ×3 (04:58→21:18)
[2025-06-10 05:46] LABS: Basophils # (Auto) 0.0 Thou/mm3 (0.0-0.2); Basophils % (Auto) 0 % (0-2.5); Eosinophils # (Auto) 0.2 Thou/mm3 (0.0-0.5); Eosinophils % (Auto) 2 % (0-10); Hematocrit 48.8 % (36.0-46.0); Hemoglobin 16.0 g/dL (12.0-16.0); Immature Granulocytes Auto 0.04 Thou/mm3 (0.00-0.00); Lymphocytes # (Auto) 1.7 Thou/mm3 (1.0-4.8); Lymphocytes % (Auto) 17 % (10-50); Mean Corpuscular HGB Conc 32.8 g/dl (31.0-37.0); Mean Corpuscular Hemoglobin 31.3 pg (25.0-35.0); Mean Corpuscular Volume 95 fL (80-100); Monocytes # (Auto) 0.8 Thou/mm3 (0.0-0.8); Monocytes % (Auto) 8 % (0-12); Neutrophils # (Auto) 7.2 Thou/mm3 (1.8-7.7); Neutrophils % (Auto) 72 % (37-80); Nucleated Red Blood Cell # 0.00 Thou/mm3 (0.00-0.00); Nucleated Red Blood Cell % 0 /100 WBC (0); Platelet Count 190 Thou/mm3 (140-440); RDW Standard Deviation 45.0 fL (36.4-46.3); Red Blood Count 5.12 Miln/mm3 (4.00-5.20); White Blood Count 10.0 Thou/mm3 (3.6-11.0)
[2025-06-10 06:13] LABS: Alanine Aminotransferase 28 U/L (10-49); Albumin, Serum 5.1 gm/dL (3.5-5.0); Albumin/Globulin Ratio 2.0 (1.2-2.2); Alkaline Phosphatase 75 U/L (46-116); Anion Gap 12 (7-16); Aspartate Amino Transferase 48 U/L (0-34); BUN/Creatinine Ratio 9 Ratio (12-20); Bilirubin,Total 1.6 mg/dL (0.3-1.2); Blood Urea Nitrogen 7 mg/dL (9-23); Calcium 9.9 mg/dL (8.3-10.6); Calcium (Corrected) 9.9 mg/dL (8.5-10.1); Carbon Dioxide 23.9 mMol/L (20.0-31.0); Chloride 100 mMol/L (98-107); Creatinine (Component) 0.8 mg/dL (0.6-1.3); Estimated Creatinine Clearance 109.8 mL/min (>60); Globulin 2.6 gm/dL (2.3-3.5); Glucose 95 mg/dL (74-106); Magnesium 2.0 mg/dL (1.6-2.6); Osmolality,Calculated 269 (275-295); Phosphorous 3.6 mg/dL (2.4-5.1); Potassium 4.1 mMol/L (3.4-5.1); Sodium 136 mMol/L (136-145); Total Protein 7.7 gm/dL (5.7-8.2); eGFR > 60 See Note
--- NOTE | 2025-06-10 08:45 | PC.SS ---
Follow up note: CWAL Protocol. On IV antibiotic.
[2025-06-10] MEDS: ENOXAPARIN SOD INJ 40 MG/0.4 ML SYRINGE SC (08:55)
[2025-06-10] MEDS: FOLIC ACID 1 MG TABLET PO ×2 (08:55→21:18)
[2025-06-10] MEDS: SERTRALINE HCL 25 MG TABLET 100 MG PO (08:55)
[2025-06-10] MEDS: METOPROLOL TARTRATE 25 MG TABLET PO ×2 (08:55→21:18)
[2025-06-10] MEDS: LEVOFLOXACIN/D5W 250MG IVPB 250 MG/50 ML BAG 50 MG IV (08:56)
[2025-06-10] MEDS: ACETAMINOPHEN 325 MG TABLET 650 MG PO (09:17)
--- NOTE | 2025-06-10 13:26 | ESPR_ITS ---
<Statement entered by Lemuel Ojeda MD - 06/10/25 20:39> Patient was seen and examined at bedside. I agree on the assessment and plan on this note as documented by resident Zaheer Penn DO PGY1. 30-year-old female past medical history of depression and complicated alcohol use disorder admitted for alcohol withdrawal and urinary tract infection management, will continue with CIWA protocol today, Librium 25 3 times daily, patient seems well-controlled with the regimen, will consider down titrating Librium in a.m., pending urine culture, will continue levofloxacin. Otherwise we will continue home dose sertraline for depression and metoprolol tartrate for hypertension management. Case discussed with attending Dr. Konrad Ojeda MD PGY-2 Documentation for date of: 06/10/25 Subjective Subjective Interval history: Patient was seen and examined at bedside. No acute events took place overnight. Patient reports feeling marked anxiety yesterday and overnight CIWA at 5 AM was 16 and patient was given 2 mg of Ativan. At the time of this interview, 8:45, CIWA is 6 and the patient will be given 0.5 mg of Ativan. Patient denies nausea, vomiting, abdominal pain, chest pain, auditory, tactile, or visual hallucinations, perspiration, heightened sensitivity to light or noise. Present tremors improved from yesterday, present headache helped with Tylenol. Patient states that she was able to sleep overnight. Exam Vital Signs Temp Pulse Resp BP Pulse Ox O2 Del Method 97.0 F 83 18 147/95 H 96 Room Air 06/10/25 08:00 06/10/25 08:55 06/10/25 08:00 06/10/25 08:55 06/10/25 08:00 06/10/25 08:00 Narrative Exam General: No acute distress, fidgety, cooperative, flushed face, coherent speech, Albanian-speaking, bilat tremors HEENT: NCAT, Mucosa moist. Pupils are equal and reactive to light bilaterally Cardiovascular: Normal S1 and S2. Regular rate and rhythm. Tachycardic. Respiratory: Lungs are clear to auscultation bilaterally. No wheezing or crackles heard. Abdomen: Soft, nontender, not distended, normal bowel sounds. Skin: Warm to touch, dry, no rashes noted Musculoskeletal: No gross injuries. Able to move all 4 extremities. No pitting edema Neuro: Alert and oriented x3. Cranial nerves: II through XII grossly intact. Psych: Normal affect and mood Objective Labs 06/10/25 05:02 06/10/25 05:02 Labs: Laboratory Results - last 24 hr 06/10/25 05:02 WBC 10.0 D RBC 5.12 Hgb 16.0 D Hct 48.8 H D MCV 95 MCH 31.3 MCHC 32.8 RDW Std Deviation 45.0 Plt Count 190 Neut % (Auto) 72 Lymph % (Auto) 17 Kendall % (Auto) 8 Eos % (Auto) 2 Baso % (Auto) 0 Neut # (Auto) 7.2 Lymph # (Auto) 1.7 Kendall # (Auto) 0.8 Eos # (Auto) 0.2 Baso # (Auto) 0.0 Immature Gran # (Auto) 0.04 H Absolute Nucleated RBC 0.00 Immature Gran % 0 Nucleated RBC % 0 Sodium 136 Potassium 4.1 Chloride 100 Carbon Dioxide 23.9 Anion Gap 12 BUN 7 L Creatinine 0.8 Estim Creat Clear Calc 109.8 eGFR > 60 BUN/Creatinine Ratio 9 L Glucose 95 Calculated Osmolality 269 L Calcium 9.9 Corrected Calcium 9.9 Phosphorus 3.6 Magnesium 2.0 Total Bilirubin 1.6 H D AST 48 H ALT 28 Alkaline Phosphatase 75 D Total Protein 7.7 Albumin 5.1 H D Globulin 2.6 Albumin/Globulin Ratio 2.0 ABG Interpretation ABG results: 06/08/25 23:36 VBG pH 7.37 VBG pCO2 39 VBG pO2 69 H VBG Base Excess -2 Quality Measures Quality Measures none Assessment & Plan Assessment Current Active Medications: Generic Name Dose Route Start Last Admin Trade Name Freq PRN Reason Stop Dose Admin Acetaminophen 650 mg 06/09/25 02:46 06/10/25 09:17 Acetaminophen 325 Mg Tablet PO 07/09/25 02:45 650 mg Q6H PRN Administration PAIN SCALE 1-3 (mild Chlordiazepoxide HCl 25 mg 06/09/25 12:00 06/10/25 04:58 Chlordiazepoxide Hcl 25 Mg Capsule PO 06/14/25 11:59 25 mg Q8HR YONG Administration Enoxaparin Sodium 40 mg 06/09/25 09:00 06/10/25 08:55 Enoxaparin Sod Inj 40 Mg/0.4 Ml Syringe SC 06/23/25 08:59 40 mg QDAY YONG Administration Folic Acid 1 mg 06/09/25 09:00 06/10/25 08:55 Folic Acid 1 Mg Tablet PO 06/14/25 08:59 1 mg BID YONG Administration Levofloxacin/Dextrose 250 mg in 50 mls @ 50 mls/hr 06/09/25 11:45 06/10/25 08:56 Levaquin Ivpb IV 06/16/25 11:44 50 mls/hr QDAY YONG Administration Lorazepam 0.5 mg 06/09/25 16:27 06/10/25 09:17 Lorazepam 0.5 Mg Tablet PO 06/14/25 02:50 0.5 mg Q4HR PRN Administration CIWA Score 5-9 Lorazepam 1 mg 06/09/25 16:27 Lorazepam 0.5 Mg Tablet PO 06/14/25 02:50 Q4HR PRN CIWA SCORE 10-14 Lorazepam 2 mg 06/09/25 16:33 06/10/25 04:58 Lorazepam 0.5 Mg Tablet PO 06/14/25 02:50 2 mg Q4HR PRN Administration CIWA SCORE 15-19 Lorazepam 2 mg 06/09/25 16:33 Lorazepam 2 Mg/Ml Vial IVP 06/14/25 03:59 Q2HR PRN CIWA >20 Metoprolol Tartrate 25 mg 06/09/25 21:00 06/10/25 08:55 Metoprolol Tartrate 25 Mg Tablet PO 07/09/25 20:59 25 mg BID YONG Administration Ondansetron HCl 4 mg 06/09/25 02:46 06/10/25 04:58 Ondansetron Inj 2 Mg/Ml Inj 2 Ml IVP 07/09/25 02:45 4 mg Q6H PRN Administration NAUSEA OR VOMITING Protocol Sertraline HCl 100 mg 06/09/25 09:00 06/10/25 08:55 Sertraline Hcl 25 Mg Tablet PO 07/09/25 08:59 100 mg QDAY YONG Administration Thiamine HCl 100 mg 06/10/25 05:00 06/10/25 08:55 Thiamine 100 Mg Tablet PO 06/15/25 04:59 100 mg BID YONG Administration Plan 30-year-old female with a history of depression and alcohol use disorder, presents to the emergency department 06/08 after being brought in by EMS for suspected alcohol withdrawal. Patient admitted for management of EtOH withdrawals. #Alcohol withdrawal #History of alcohol use Gradual increase in alcohol consumption over the past three weeks, currently drinking 1-2 vodka bottles daily, although she has been actively trying to quit. Last drink was 06/08 in the AM no time specified and unknown amount drank Urine EtOH 299 AST 73, and ALP 30 CIWA at the time of admission was 10 In ED patient recieved lorazepam 2 mg IV, thiamine 100 mg IV followed by 500 mg, phenobarbital 130 mg IV, diazepam 5 mg PO, Plan: - CIWA protocol in place - Scheduled Librium PO 25mg TID - Ativan PO .5mg for CIWA 5-9 Q4h, 1mg for CIWA 10-14 Q4h, and 2mg CIWA 15-19 Q4h PRN - Thiamine PO 100mg bid 06/10- 02/2025 after 5 days - Folic acid 1mg qday - Monitor for breakthrough alcohol withdrawal symptoms (especially, seizures) - Replete electrolytes as needed - Acetaminophen p.o. 650 mg Q6h PRN mild to moderate pain, or fever - [employer] 5-325 Q6h PRN severe pain. #UTI #History of ESBL Patient endorses increased urinary frequency, urgency, burning sensation Urine WBC 15, urine leuk esterase positive Patient has history of ESBL 03/27/2025 Recieved CTX 1g in ED. Plan: ?Levofloxacin IV 250mg Qday ?Follow-up urine culture # depression Patient does not see any psychiatrist Child welfare services took patient's children today and patient has been binge drinking as a result Plan ? Restarted home sertraline 100 mg daily ? Social work referral Health Maintenance: Diet: Regular GI prophylaxis: None DVT prophylaxis: Lovenox 40 mg daily Antibiotics: Bactrium DS IV CODE STATUS: Full Disposition: Telemetry This case was discussed with my attending physician, Dr. Watts, and senior resident, Dr Ojeda. Zaheer Penn, DO PGY I Attending Provider Attestation/Addendum I have examined the patient, reviewed labs and imaging findings, discussed the case with the resident(s), and reviewed entered orders. I agree with the plan of care as outlined in this note, with these additional summaries/recommendations: Patient seen at bedside. No acute overnight events. She reports improvement in withdrawal symptoms after starting scheduled Librium. Bilateral hand tremor still present. It has been approximately 60 hours since last alcoholic drink and we will continue to treat and monitor closely given patient's history of alcohol withdrawal seizures. Patient admitted for alcohol withdrawal. She reports she drinks approximately 1 bottle of vodka a day. Continue CIWA protocol & scheduled Librium. Patient expresses desire to quit drinking and referred to social media executive. Patient was counseled at bedside on alcohol cessation. Patient endorsed urinary symptoms on admission and urinalysis suggestive of UTI. Urine culture taken and pending. Continue IV antibiotic. Continue home sertraline for depression. Patient updated on the plan and in agreement. All questions answered satisfaction. Please see residents note for additional details and management. Dr. Mac MD
--- NOTE | 2025-06-10 16:01 | PC.SS ---
SS met with patient regarding her d/c plan. Pt is alert/oriented. Pt was admitted for Alcohol Withdrawal. Pt confirmed demographic and contact information is correct on facesheet. Pt resides alone. Pt ambulates independently without assistance or DME. Pt is ok with all ADLs. Patient?s pharmacy of choice is is [facility] on [address] Pt named her friend, Kellie Espinoza medical decision maker if she is unable. Patient?s choice is to return home upon d/c. Pt does not have an advance directive, SS offered, and pt declined. Pt states she is not diabetic and is not on dialysis. Pt is on CWAL Protocol. SS offered pt community resources for alcohol use and pt declined. Pt states she consumes Vodka 5 days a week for the past year. Pt states she is going to enroll herself into an in pt alcohol program once she is d/c from the hospital. Pt followed up with PCP 2 weeks ago. Pt states her friend will provide transportation home. D/C plan: Return home Next of Kin: Kellie Espinoza, friend, phone# [phone] PCP: Dr. Jose C Kelly from [facility] in [place] Address: Correct on facesheet
[2025-06-11] VITALS (7 sets, daily range): BP systolic 122–129; BP diastolic 81–93; PULSE 69–82; RESP 15–22; TEMP 36–36.3; O2SAT 96–99; BMI 30.8
[2025-06-11] MEDS: HYDROcodone/APAP 5/325 TABLET 1 TAB PO (05:24)
[2025-06-11 05:45] LABS: Basophils # (Auto) 0.0 Thou/mm3 (0.0-0.2); Basophils % (Auto) 0 % (0-2.5); Eosinophils # (Auto) 0.2 Thou/mm3 (0.0-0.5); Eosinophils % (Auto) 3 % (0-10); Hematocrit 42.9 % (36.0-46.0); Hemoglobin 14.0 g/dL (12.0-16.0); Immature Granulocytes Auto 0.03 Thou/mm3 (0.00-0.00); Lymphocytes # (Auto) 1.5 Thou/mm3 (1.0-4.8); Lymphocytes % (Auto) 22 % (10-50); Mean Corpuscular HGB Conc 32.6 g/dl (31.0-37.0); Mean Corpuscular Hemoglobin 30.8 pg (25.0-35.0); Mean Corpuscular Volume 95 fL (80-100); Monocytes # (Auto) 0.6 Thou/mm3 (0.0-0.8); Monocytes % (Auto) 9 % (0-12); Neutrophils # (Auto) 4.6 Thou/mm3 (1.8-7.7); Neutrophils % (Auto) 66 % (37-80); Nucleated Red Blood Cell # 0.00 Thou/mm3 (0.00-0.00); Nucleated Red Blood Cell % 0 /100 WBC (0); Platelet Count 186 Thou/mm3 (140-440); RDW Standard Deviation 44.3 fL (36.4-46.3); Red Blood Count 4.54 Miln/mm3 (4.00-5.20); White Blood Count 7.0 Thou/mm3 (3.6-11.0)
[2025-06-11 06:14] LABS: Alanine Aminotransferase 28 U/L (10-49); Albumin, Serum 4.6 gm/dL (3.5-5.0); Albumin/Globulin Ratio 2.2 (1.2-2.2); Alkaline Phosphatase 66 U/L (46-116); Anion Gap 9 (7-16); Aspartate Amino Transferase 52 U/L (0-34); BUN/Creatinine Ratio 10 Ratio (12-20); Bilirubin,Total 0.9 mg/dL (0.3-1.2); Blood Urea Nitrogen 8 mg/dL (9-23); Calcium 9.5 mg/dL (8.3-10.6); Calcium (Corrected) 9.5 mg/dL (8.5-10.1); Carbon Dioxide 27.1 mMol/L (20.0-31.0); Chloride 103 mMol/L (98-107); Creatinine (Component) 0.8 mg/dL (0.6-1.3); Estimated Creatinine Clearance 113.0 mL/min (>60); Globulin 2.1 gm/dL (2.3-3.5); Glucose 101 mg/dL (74-106); Magnesium 2.0 mg/dL (1.6-2.6); Osmolality,Calculated 275 (275-295); Phosphorous 4.5 mg/dL (2.4-5.1); Potassium 4.3 mMol/L (3.4-5.1); Sodium 139 mMol/L (136-145); Total Protein 6.7 gm/dL (5.7-8.2); eGFR > 60 See Note
[2025-06-11] MEDS: ENOXAPARIN SOD INJ 40 MG/0.4 ML SYRINGE SC (09:06)
[2025-06-11] MEDS: THIAMINE 100 MG TABLET PO (09:07)
[2025-06-11] MEDS: SERTRALINE HCL 25 MG TABLET 100 MG PO (09:07)
[2025-06-11] MEDS: FOLIC ACID 1 MG TABLET PO (09:07)
[2025-06-11] MEDS: METOPROLOL TARTRATE 25 MG TABLET PO (09:07)
[2025-06-11] MEDS: LEVOFLOXACIN/D5W 250MG IVPB 250 MG/50 ML BAG 50 MG IV (09:08)
--- NOTE | 2025-06-11 14:36 | PC.NURSE ---
Dr. Ojeda came speak to patient that she is medically cleared to go [facility]. Pt discharged at this time.
--- NOTE | 2025-06-11 16:31 | ESDS_ITS ---
<Statement entered by Ivan Salazar MD - 06/11/25 17:57> Patient seen and examined at bedside. I discussed and supervised with the photo intern physician who took care of this patient. I personally saw and examined the patient. I agree with most of the assessment and plan. Plan of care discussed with attending Dr. Tarango. Ivan Salazar MD PGY-2 Planned Discharge Date 06/11/25 DS: Providers Provider Date of admission: 06/09/25 02:46 Primary care physician: BETTY Russell ([facility]) Admitting Provider: Karla Rodas MD Attending Provider on Admission: Flaco Tarango DO Attending Provider on DC: Flaco Tarango DO Discharging Provider: Steffany Neely MD DS: Diagnosis Problem List Completed Was Problem List Reviewed/Reconciled?: Yes Hospital Course Hospital Course Hospital course: 30-year-old female with past medical history of depression and alcohol withdrawal with seizure presents with headache, severe anxiety, sweating , upset stomach, palpitations, severe shaking, feeling confused, and feeling visual and tactile hallucinations, admitted for management of alcohol withdrawal symptoms and UTI. ED course: IVF, Ativan 2mg IV, Zofran 4 mg IV, Thiamine 100 mg IV, Rocephin 1 G IV. Hospitalist course: [facility] protocol in place. Levofloxacin for ESBL UTI. Patient reported improvement in symptoms and requested to be medically cleared and discharged to attend substance rehab center. Patient has no withdrawal seizures during this hospital visit and no history of seizure outside of withdrawal. Patient medically stable for discharge. Diagnoses: #Alcohol withdrawal #History of alcohol use #UTI #History of ESBL # depression Discharge instruction: You were admitted in the hospital for Alcohol Withdrawal Management, you successfully completed treatment and you are medically clear for discharge. Continue home medications as prescribed. Abstain from alcohol, follow up outpatient with your PCP to discuss pharmacological options. Continue metoprolol 25 mg twice daily, Sertraline daily. Take Levofloxacin 250 mg twice daily for 2 more days. Follow up with PCP in 2 week. Should your symptoms recur or worsen patient is instructed to return to the ED. Follow-up in [facility] in 1 to 2 weeks if you do not have a PCP. Call [phone] to make an appointment Address: [facility], [address], [address], [place], [address] Assessment and plan discussed with my attending physician Dr. Tarango and Dr. Salazar (PGY-2). Dr. Neely (PGY-1) ? president financial institution Status at Discharge Overall status at discharge: patient is progressing back to baseline Time Spent with Patient Time attestation: Total time spent providing and/or coordinating discharge services: Time spent: Greater than 30 minutes Exam Vital Signs Temp Pulse Resp BP Pulse Ox O2 Del Method 96.8 F 82 15 129/93 H 98 Room Air 06/11/25 13:20 06/11/25 13:20 06/11/25 13:20 06/11/25 13:20 06/11/25 13:20 06/11/25 13:20 Narrative Exam General: No acute distress, cooperative, coherent speech, Belizean-speaking, anxious HEENT: NCAT, Mucosa moist. Pupils are equal and reactive to light bilaterally Cardiovascular: Normal S1 and S2. Regular rate and rhythm. Respiratory: Lungs are clear to auscultation bilaterally. No wheezing or crackles heard. Abdomen: Soft, nontender, not distended, normal bowel sounds. Skin: Warm to touch, dry, no rashes noted Musculoskeletal: No gross injuries. Able to move all 4 extremities. No pitting edema Neuro: Alert and oriented x3. Cranial nerves: II through XII grossly intact. Psych: Normal affect and mood Discharge Plan Plan Patient Disposition: HOME (Self Care) Patient condition on transfer: Stable Care Plan Goals: You were admitted in the hospital for Alcohol Withdrawal Management, you successfully completed treatment and you are medically clear for discharge. Continue home medications as prescribed. Abstain from alcohol, follow up outpatient with your PCP to discuss pharmacological options. Continue metoprolol 25 mg twice daily, Sertraline daily. Take Levofloxacin 250 mg twice daily for 2 more days. Follow up with PCP in 2 week. Should your symptoms recur or worsen patient is instructed to return to the ED. Follow-up in [facility] in 1 to 2 weeks if you do not have a PCP. Call [phone] to make an appointment Address: [facility], [address], [address], [place], [address] Prescriptions/Referrals Prescriptions/Med Rec: New levofloxacin 250 mg tablet 250 mg PO QDAY Qty: 2 0RF Continued thiamine HCl (vitamin B1) 100 mg tablet 100 mg PO DAILY Patient Comments: TAKE 1 TABLET BY MOUTH EVERY DAY sertraline 100 mg tablet 100 mg PO Q24H metoprolol tartrate 25 mg tablet 25 mg PO BID Qty: 60 1RF Referrals: Jose C Kelly FNP [Primary Care Provider] Patient/Caregiver Discharge Instructions Education Materials: Social Drinking vs Problem Drinking, Understanding Urinary Tract ..., Alcohol Withdrawal: What to Expect Print Language: Belizean Stand Alone Forms: Haylie Award Info., Patient Portal Info Letter Discharge Order Discharge Orders: Discharge (Routine); Ordered 06/11/25 Ordered By: Lemuel Ojeda Quality Discharge Quality Measures VTE prophylaxis MD Attestestation MD Attestation I have discussed and was present for the essential components of the discharge history, physical examination, diagnosis, and discharge treatment plan with the resident. I agree with the patient's discharge care as documented by the resident and amended herein by me. Vish Tarango DO. The patient understood all discharge instructions, all questions were answered satisfactorily. The patient was instructed to return to the Emergency Department is symptoms worsened or persisted. Although this document has been carefully reviewed, there may still be some phonetic and other typographical errors. These errors are purely grammatical due to imperfections in the software program and should not be construed in any way to compromise the substance of the patient's medical care during this visit.
== END 2025-06-11 14:38 | disposition home or self-care (01) | DRG 775 ==
LOC: SERX 06-09 02:26 → SERHOLD 06-09 03:03 → S2NX 06-09 06:11 → S3NX 06-11 05:56
PROVIDERS: Admitting Provider Student in an Organized Health Care Education/Training Program; Emergency Provider Emergency Medicine; PCP Nurse Practitioner Family; Visit Provider Student in an Organized Health Care Education/Training Program
DX: F10.129 Alcohol abuse with intoxication, unspecified (principal); Y90.8 Blood alcohol level of 240 mg/100 ml or more; F10.139 Alcohol abuse with withdrawal, unspecified; N39.0 Urinary tract infection, site not specified; F53.0 Postpartum depression; O99.345 Other mental disorders complicating the puerperium; Z79.899 Other long term (current) drug therapy; F41.9 Anxiety disorder, unspecified; Z16.12 Extended spectrum beta lactamase (ESBL) resistance
CPT/HCPCS: 36415; 71045; 80053; 80061; 80307; 80320; 80329; 81001; 82010; 82140; 82150; 82248; 82803; 83690; 83735; 83880; 84100; 84443; 84484; 84703; 85025; 85610; 85730; 87077; 87086; 87186; 93005; 96361; 96365; 96366; 96375; 96376; 99284; A4216; J0696; J1650; J1956; J2060; J2405; J2560; J3411; J3475; J7120; A9270; G0480